=== PATIENT | male | born 1945 | race Caucasian/White ===

== ENCOUNTER 2018-08-17 09:03 | Outpatient (CLI) | payer BC ==
--- NOTE | 2018-08-18 01:17 | XRAY Report ---
Reason: CARDIAC MURMUR, UNSPECIFIED Procedure Date: 08/17/2018 Accession Number: [id number] / [id number] Procedure: XR - Chest 2 View X-Ray CPT Code: 67970 FULL RESULT: EXAM: CHEST RADIOGRAPHY EXAM DATE: 08/17/2018 10:00 AM. CLINICAL HISTORY: CARDIAC MURMUR, UNSPECIFIED. COMPARISON: RIBS 3 VIEW BILAT 02/22/2016 11:55 AM. TECHNIQUE: 2 views. FINDINGS: Lungs/Pleura: No evidence of acute consolidation or effusion. There are pleural calcifications. No evidence of effusion. No pneumothorax. Mediastinum: Heart size is within normal limits. Other: Remote left-sided rib fractures. IMPRESSION: 1. No acute intrathoracic plain film abnormality. 2. Normal heart size. Aortic contour is within normal limits. 3. There are pleural calcifications. RADIA
== END 2018-08-17 09:04 | disposition home or self-care (01) ==
LOC: DI 09:03
PROVIDERS: ATTEND Internal Medicine
DX: R01.1 Cardiac murmur, unspecified (principal); I35.0 Nonrheumatic aortic (valve) stenosis
CPT/HCPCS: 71046; 93306

== ENCOUNTER 2018-10-23 08:29 | Outpatient (CLI) | payer BC, MEDICARE ==
--- NOTE | 2018-10-23 10:35 | CARDIAC PROCEDURE NOTE ---
DATE OF SERVICE: 10/23/2018 Physician: Stacie Ryder MD, [facility] INDICATIONS: Chest pain. ORDERING PHYSICIAN: Vladimir Burt MD. CARDIAC RISK FACTORS: Male gender, advanced age, possibly untreated hypertension, hyperlipidemia which is untreated, family history of heart disease, and he is an ex-smoker. The patient has known aortic stenosis of a moderate degree. MEDICATIONS: None. PROCEDURE: After signing informed consent, the patient underwent a Cooper protocol treadmill stress test. No imaging was ordered with this test. Resting heart rate: 56. Peak heart rate: 114 (78% predicted maximal heart rate for age). Resting blood pressure: 171/80. Peak blood pressure: 158/68, and then in recovery increased to 170/70, then 200/70. The patient exercised for 5 minutes and 19 seconds on a Cooper protocol treadmill stress test. The patient developed his typical chest discomfort in early stage II, which he rated 2/10. The test was discontinued because of dropping blood pressure. At this point, the patient described chest pain at 4/10. In recovery, the blood pressure first increased to 200/70 peak, and then declined to 190/75 and 170/70. The patient's chest discomfort lasted for approximately 8 minutes. RESTING EKG: Sinus bradycardia, rare PVC, LVH voltage, flat T-wave in lead 3. EKG AT [facility]: [address]-segment depressions in leads V4 through V6, [address] depressions in leads 2, 3, aVF, and V3. After 5 minutes of recovery EKG showed: Sinus rhythm, inverted T waves in leads V4 through V6 and leads 2, 3 and aVF. I contacted Dr. Vladimir Burt and discussed the results. The patient was taken to the [facility] Emergency Room, and I handed over to the case to the emergency room doctor, Dr. Riley Castillo. SUMMARY 1. Abnormal resting EKG. 2. Poorly controlled blood pressure at rest. 3. Significant ischemic changes by EKG criteria on this exercise stress test. 4. Abnormal drop in blood pressure with exertion (suggesting Left Main or 3- vessel CAD). 5. No imaging study was ordered with this test. 6. The patient was taken to the emergency room, with plan for stabilization and transfer for urgent coronary angiogram. TD: 10/23/2018 10:15 Revised 10/27/2018 jll Account correction Orig. signed 10/23/2018@1118 MTDD
== END 2018-10-23 08:30 | disposition home or self-care (01) ==
LOC: DI 08:29
PROVIDERS: ATTEND Internal Medicine
DX: R94.31 Abnormal electrocardiogram [ECG] [EKG] (principal); R07.89 Other chest pain; E78.5 Hyperlipidemia, unspecified; Z82.49 Family history of ischemic heart disease and other diseases of the circulatory system; Z87.891 Personal history of nicotine dependence
CPT/HCPCS: 93017

== ENCOUNTER 2018-10-23 09:23 | Emergency (ER) | payer BC, MEDICARE ==
--- NOTE | 2018-10-23 09:31 | ED Physician Documentation ---
PD HPI CHEST PAIN - Stated complaint Stated Complaint: HIGH BP/CHEST DISCOMFORT - History obtained from History obtained from: Patient, Caregiver (Dr. Orozco, who just performed his outpt stress test.) - History of Present Illness Timing - onset: How many months ago (He said he has noticed some exertionally related chest pain and pressure intermittently for the last year or so but has been most notable in the last couple of months. He states it has increased to having chest discomfort with just a short walk but has not noticed it with just walking around the house or some stairs. He has noticed lightheadedness with activity along with the chest pressure. He has not had any syncope. He has not noticed any edema. He has previous history of high blood pressure but currently his blood pressures been more normal. He states his resting heart rate is 50- 60. He is not on any medications.) Timing - onset during: Light activity, Exertion Timing - duration: Minutes Timing - details: Abrupt onset, Now resolved Quality: Pressure, Tightness, Dull (Has only noticed the chest discomfort with exertion and then recently light activity. He feels fine at rest.) Location: Substernal, Left chest Radiation: No: Jaw, Neck, Back Improved by: Rest Worsened by: Exertion. No: Inspiration, Movement, Palpation, Position Associated symptoms: Shortness of air, Feeling faint / dizzy. No: Diaphoresis, Nausea, Vomiting, Palpitations Similar symptoms before: No diagnosis (He has had the symptoms progressively over the last year and then more so the last couple of months to the point of light activity causing discomfort and lightheadedness in the past couple of weeks. He was now getting a stress test evaluation of this.) Recently seen: Other (Just came from stress testing, which was markedly abnormal, with diffuse ST depression and notable drop in his blood pressure.) Review of Systems Constitutional: reports: Other (recent travel by plane couple weeks ago.). denies: Fever Ears: reports: Loss of hearing (chronic) Nose: denies: Rhinorrhea / runny nose, Congestion Throat: denies: Sore throat Cardiac: denies: Palpitations, Pedal edema, Calf pain Respiratory: denies: Cough GI: denies: Abdominal Pain, Nausea, Vomiting, Diarrhea, Bloody / black stool : denies: Dysuria, Frequency Skin: denies: Rash, Lesions Musculoskeletal: reports: Extremity pain (mild pains left calf the past week.). denies: Extremity swelling Neurologic: denies: Focal weakness, Numbness, Near syncope (but lightheaded at times with the chest pressure during light exertion) Endocrine: denies: Weight loss, Weight gain, Easy bruising / bleeding Immunocompromised: denies: Immunocompromised PD PAST MEDICAL HISTORY - Past Medical History Cardiovascular: Hypertension Respiratory: None Neuro: None Endocrine/Autoimmune: None - Past Surgical History Past Surgical History: Yes General: Appendectomy - Allergies Allergies/Adverse Reactions: Allergies Allergy/AdvReac Type Severity Reaction Status Date / Time No Known Drug Allergies Allergy Verified 07/21/15 15:55 - Living Situation Living Situation: reports: With spouse/s.o. Living Arrangement: reports: At home - Social History Does the pt smoke?: No Smoking Status: Never smoker Does the pt drink ETOH?: No Does the pt have substance abuse?: No - Family History Family history: reports: Non contributory PD ED PE NORMAL - Vitals Vital signs reviewed: Yes - General General: Alert and oriented X 3, No acute distress, Well developed/nourished - HEENT HEENT: Pharynx benign - Neck Neck: Supple, no meningeal sign, No adenopathy - Cardiac Cardiac: RRR, No murmur - Respiratory Respiratory: Clear bilaterally - Abdomen Abdomen: Normal bowel sounds, Soft, Non tender, Non distended - Back Back: No CVA TTP - Derm Derm: Normal color - Extremities Extremities: No deformity, No tenderness to palpate, Normal ROM s pain, No edema, Other (mild left mid calf tenderness without edema.) - Neuro Neuro: Alert and oriented X 3, No motor deficit, Normal speech - Psych Psych: Normal mood, Normal affect Results - Vitals Vitals: Vital Signs - 24 hr 10/23/18 10/23/18 10/23/18 09:31 09:41 10:05 Temperature 36 C L Heart Rate 60 55 L Respiratory 6 L 15 Rate Blood Pressure 176/87 H 168/77 H Blood Pressure 164/92 H [Right] O2 Saturation 100 100 10/23/18 10/23/18 10/23/18 10:32 11:00 11:30 Temperature Heart Rate 62 57 L 58 L Respiratory 15 15 15 Rate Blood Pressure 164/92 H 182/73 H 113/64 Blood Pressure [Right] O2 Saturation 100 100 96 10/23/18 12:00 Temperature 36.2 C L Heart Rate 59 L Respiratory 19 Rate Blood Pressure 121/75 Blood Pressure [Right] O2 Saturation 100 Oxygen O2 Source Room air - Labs Labs: Laboratory Tests 10/23/18 10/23/18 10/23/18 08:30 09:37 09:37 WBC 4.0 L RBC 4.58 L Hgb 14.9 Hct 42.9 MCV 93.6 MCH 32.5 H MCHC 34.7 RDW 13.1 Plt Count 140 MPV 8.5 Neut # (Auto) 2.5 Lymph # (Auto) 0.9 L [place] # (Auto) 0.4 Eos # (Auto) 0.0 Baso # (Auto) 0.0 Absolute Nucleated RBC 0.00 Nucleated RBC % 0.0 D-Dimer 200.2 Sodium 137 Potassium 4.2 Chloride 105 Carbon Dioxide 25 Anion Gap 7.0 BUN 18 Creatinine 0.9 Estimated GFR (MDRD) 82 L Glucose 107 H Calcium 9.1 Magnesium 2.3 Total Bilirubin 0.6 AST 26 ALT 22 Alkaline Phosphatase 93 Troponin I B-Natriuretic Peptide Total Protein 7.1 Albumin 4.1 Globulin 3.0 Albumin/Globulin Ratio 1.4 Lipase 32 10/23/18 10/23/18 09:37 09:37 WBC RBC Hgb Hct MCV MCH MCHC RDW Plt Count MPV Neut # (Auto) Lymph # (Auto) [place] # (Auto) Eos # (Auto) Baso # (Auto) Absolute Nucleated RBC Nucleated RBC % D-Dimer Sodium Potassium Chloride Carbon Dioxide Anion Gap BUN Creatinine Estimated GFR (MDRD) Glucose Calcium Magnesium Total Bilirubin AST ALT Alkaline Phosphatase Troponin I < 0.04 B-Natriuretic Peptide 79 Total Protein Albumin Globulin Albumin/Globulin Ratio Lipase PD MEDICAL DECISION MAKING - ED course Complexity details: reviewed results, considered differential (We will get baseline labs as well as chest x-ray. His EKG showing LVH with a hint of ST depressions laterally. The main issue is his markedly abnormal stress test with the drop in pressure and diffuse changes suggestive of main artery or multivessel disease. I think he requires urgent cardiology evaluation.), d/w patient, d/w sap ppm consultant ([facility] which was slightly closer did not have beds. I talked with [facility] and all of h er cardiology accepted the patient for transfer) Departure - Departure Disposition: 02 Transfer Acute Care Hosp Clinical Impression: Progressive angina, Abnormal stress ECG with treadmill Condition: Stable Record reviewed to determine appropriate education?: Yes
[2018-10-23 09:43] LABS: BASOPHILS % (AUTO) 1.2 %; EOSINOPHILS % (AUTO) 0.9 %; HGB - HEMOGLOBIN 14.9 g/dL (14.0-18.0); LYMPHOCYTES # (AUTO) 0.9 10^3/uL (1.5-3.5); LYMPHOCYTES % (AUTO) 22.6 %; MEAN CORPUSCULAR HEMOGLOBIN 32.5 pg (27.0-31.0); MEAN CORPUSCULAR HGB CONC 34.7 g/dL (32.0-36.0); MEAN CORPUSCULAR VOLUME 93.6 fL (80.0-94.0); MEAN PLATELET VOLUME 8.5 fL (7.4-11.4); MONOCYTES # (AUTO) 0.4 10^3/uL (0.0-1.0); MONOCYTES % (AUTO) 11.2 %; NEUTROPHILS # (AUTO) 2.5 10^3/uL (1.5-6.6); NEUTROPHILS % (AUTO) 64.1 %; PLT - PLATELET COUNT 140 10^3/uL (130-450); RED BLOOD COUNT 4.58 10^6/uL (4.70-6.10); RED CELL DISTRIBUTION WIDTH 13.1 % (12.0-15.0)
[2018-10-23] MEDS ORDERED: ASPIRIN CHEW 81 MG TABLET PO STA (09:47)
[2018-10-23] MEDS ORDERED: NITROGLYCERIN 2% PASTE TOP STA (09:48)
[2018-10-23] MEDS ORDERED: ATORVASTATIN 40 MG TABLET PO STA (09:57)
[2018-10-23 10:00] LABS: ALBUMIN 4.1 g/dL (3.2-5.5); ALBUMIN/GLOBULIN RATIO 1.4 (1.0-2.2); BILIRUBIN,TOTAL 0.6 mg/dL (0.2-1.0); CALCIUM 9.1 mg/dL (8.5-10.3); CREATININE 0.9 mg/dL (0.6-1.2); MAGNESIUM 2.3 mg/dL (1.7-2.8); TOTAL PROTEIN 7.1 g/dL (6.7-8.2)
--- NOTE | 2018-10-23 10:17 | XRAY Report ---
Reason: chest pain Procedure Date: 10/23/2018 Accession Number: [id number] / [id number] Procedure: XR - Chest 1 View X-Ray CPT Code: 79889 FULL RESULT: EXAM: CHEST RADIOGRAPHY EXAM DATE: 10/23/2018 09:53 AM. CLINICAL HISTORY: Chest pain. COMPARISON: CHEST 2 VIEW 08/17/2018 9:57 AM. TECHNIQUE: 1 view. FINDINGS: Lungs/Pleura: Apparent 1.8 x 1.7 cm mass projecting over the right mid lung, new finding compared to 08/17/2018. No lobar consolidation pneumothorax or pleural effusion is identified. Mediastinum: Within exam limitations, the cardiomediastinal contour is normal. Other: None. IMPRESSION: Apparent 1.8 cm mass projecting over the right lung represents a new finding. While this finding is less likely to account for the patient's acute presentation, clarification by routine outpatient chest CT is warranted. RADIA
[2018-10-23 12:17] VITALS: BP 121/75
== END 2018-10-23 12:56 | disposition short-term general hospital (02) ==
LOC: ED 09:23
DX: I20.0 Unstable angina (principal); R94.31 Abnormal electrocardiogram [ECG] [EKG]; I10 Essential (primary) hypertension; E78.5 Hyperlipidemia, unspecified; Z82.49 Family history of ischemic heart disease and other diseases of the circulatory system; Z87.891 Personal history of nicotine dependence
CPT/HCPCS: 36415; 71045; 80053; 83690; 83735; 83880; 84484; 85025; 85379; 93005; 93017; 99284

== ENCOUNTER 2018-10-23 12:59 | Outpatient (CLI) | payer MEDICARE | END 2018-10-23 13:00 | disposition home or self-care (01) | LOC: EMS 12:59 | PROVIDERS: ATTEND Surgery | DX: R07.9 Chest pain, unspecified (principal) | CPT/HCPCS: A0425; A0427 ==

== ENCOUNTER 2018-12-02 21:01 | Outpatient (CLI) | payer MEDICARE ==
--- NOTE | 2018-12-03 20:29 | Ultrasound Report ---
Reason: IRRITATED LIPOMA Procedure Date: 12/02/2018 Accession Number: [id number] / [id number] Procedure: US - Head or Neck Soft Tissue CPT Code: FULL RESULT: EXAM: NECK ULTRASOUND EXAM DATE: 12/02/2018 09:16 PM. CLINICAL HISTORY: IRRITATED LIPOMA. COMPARISON: None. TECHNIQUE: Real-time sonographic imaging was performed by the pipe insulator helper utilizing color-flow. Multiple surgical device sales representative static images were saved for review. FINDINGS: Scanning of the region of concern in the left lateral neck demonstrates a mildly hyperechoic 2.9 x 2.4 x 0.7 cm circumscribed nodule, without vascularity. No fluid collection is identified. No adjacent adenopathy is appreciated. IMPRESSION: Likely lipoma in the left lateral neck. RADIA
== END 2018-12-02 21:02 | disposition home or self-care (01) ==
LOC: DI 21:01
PROVIDERS: ATTEND Physician Assistant
DX: D17.9 Benign lipomatous neoplasm, unspecified (principal)
CPT/HCPCS: 76536

== ENCOUNTER 2018-12-19 16:47 | Outpatient (CLI) | payer MEDICARE ==
--- NOTE | 2018-12-21 19:11 | Ultrasound Report ---
Reason: UNSP SYMPTOMS AND SIGNS INVOLVING THE GENITOURINAR Procedure Date: 12/19/2018 Accession Number: [id number] / [id number] Procedure: US - Bladder CPT Code: FULL RESULT: EXAM: PELVIS ULTRASOUND, LIMITED. EXAM DATE: 12/19/2018 05:20 PM. CLINICAL HISTORY: Dysuria. COMPARISON: None. TECHNIQUE: Real-time scanning was performed with static images obtained. FINDINGS: Ultrasound evaluation shows bilateral ureteral jets. No bladder wall thickening. Bladder volume is 239 cc prevoid, 15 cc postvoid. Prostate measures 4.2 x 4.3 x 4.8 cm. IMPRESSION: Postvoid residual of 15 cc. RADIA
== END 2018-12-19 16:48 | disposition home or self-care (01) ==
LOC: DI 16:47
PROVIDERS: ATTEND Internal Medicine
DX: R39.9 Unspecified symptoms and signs involving the genitourinary system (principal)
CPT/HCPCS: 76857

== ENCOUNTER 2018-12-19 16:48 | Outpatient (CLI) | payer MEDICARE ==
[2018-12-19] MEDS ORDERED: IOPAMIDOL-300 100 ML VIAL IVP ONE ×2 (16:49→17:49)
[2018-12-19 17:18] LABS: CREATININE 0.9 mg/dL (0.6-1.2)
[2018-12-19] MEDS ORDERED: IOPAMIDOL-300 100 ML VIAL ONE (17:26)
--- NOTE | 2018-12-21 11:04 | CT Report ---
Reason: UNSPECIFIED INFECTIOUS DISEASE Procedure Date: 12/19/2018 Accession Number: [id number] / [id number] Procedure: CT - SOFT TISSUE NECK W CPT Code: FULL RESULT: CT SOFT TISSUE NECK WITH CONTRAST INDICATION: 73-year-old male. Clinical history as per requisition is "unspecified infectious disease". Clinical history provided by the mri technologist states "the left side of face and neck feels inflamed". TECHNIQUE: The neck was scanned helically and data was reconstructed into 2 mm axial images. In addition, sagittal and coronal reformations have been generated. CONTRAST: Isovue 300, 80 mL IV. In accordance with CT protocol optimization, one or more of the following dose reduction techniques were utilized for this exam: automated exposure control, adjustment of mA and/or KV based on patient size, or use of iterative reconstructive technique. COMPARISON: None. FINDINGS: The nasopharyngeal and oropharyngeal soft tissues appear symmetric. The oral tongue is obscured due to extensive beam hardening artifact from metal dental hardware. No tongue base mass is identified. The larynx and hypopharynx are unremarkable. The trachea is widely patent to the ismael. There is an ovoid, hypodense mass in the mid to lower pole of the left lobe of the thyroid gland that measures about 13 mm maximal AP by 10 mm maximal transverse and 14 mm maximal craniocaudad. No obvious extracapsular disease. No regional lymphadenopathy. A few coarse calcifications are seen in the mid and upper pole of the left lobe of the thyroid. The right lobe and isthmus are unremarkable. The submandibular and parotid glands are unremarkable. There is calcified atherosclerotic plaque at the carotid bifurcations. Evaluation is limited on the images provided, however, no definite, hemodynamically significant carotid artery stenosis is identified. Both vertebral arteries are patent. The internal jugular veins appear patent. Multiple normal sized, homogeneous, nonnecrotic lymph nodes are identified in the neck. No lymph nodes meeting the size criterion for malignancy are demonstrated and no necrotic lymph nodes are identified. There is a poorly defined focus of increased density in subcutaneous fat, posterolateral aspect left neck at about the level of the C2-C3 disk (see image 80 of series #3 and image 37 of series #6). This ill-defined area of increased density within the subcutaneous fat extends over a distance of roughly 10 mm AP by 6.5 mm transverse and 4 mm craniocaudad. This could represent a small focus of scarring from prior surgery or previous trauma. Localized inflammation in the subcutaneous fat could also give this appearance. No discrete mass is identified. No well-circumscribed, loculated fluid collection is seen to suggest the possibility of abscess. The regional soft tissues are otherwise unremarkable. A tiny calcified granuloma is identified posteriorly and to the right pulmonary apex, consistent with the sequela of remote granulomatous infection. No focal mass/nodule is seen in the imaged upper lungs. Postsurgical changes are noted in the chest with evidence of previous midline sternotomy. Degenerative changes are demonstrated in the cervical spine. The regional bony structures are otherwise unremarkable. No lytic or destructive bone lesion is demonstrated. Middle ear cavities and imaged mastoid air cells appear clear. There is mild mucosal thickening in the left maxillary sinus. No air-fluid level is demonstrated. The imaged paranasal sinuses are otherwise essentially clear. Of note, the roots for the right maxillary third molars protrude upward into the alveolar recesses of the maxillary sinuses bilaterally. Also noted is periapical lucency surrounding a root of the left maxillary first molar (see image 49 of series #3 and image 53 of series #6) consistent with periapical abscess, age indeterminate. IMPRESSION: 1. There is a 1.3 x 1 x 1.4 cm, predominantly hypodense mass lower pole, left lobe of the thyroid. The possibility of malignancy cannot be excluded. Recommend further assessment with thyroid ultrasound. 2. Small, minor focus of increased density, subcutaneous fat, posterolateral aspect, left neck at the C2-C3 disk level as described. This could represent scarring from prior surgery or trauma. Localized infection/inflammation in the subcutaneous fat could also give this appearance. Clinical correlation advised. 3. Periapical lucency surrounding a root for the left maxillary first molar is consistent with periapical abscess, age indeterminate. 4. Otherwise unremarkable examination of the neck. In particular, no worrisome lymphadenopathy is identified.
== END 2018-12-19 16:49 | disposition home or self-care (01) ==
LOC: DI 16:48
PROVIDERS: ATTEND Specialist
DX: E04.9 Nontoxic goiter, unspecified (principal); R93.89 Abnormal findings on diagnostic imaging of other specified body structures; R39.9 Unspecified symptoms and signs involving the genitourinary system
CPT/HCPCS: 36415; 70491; 76857; 82565; Q9967

== ENCOUNTER 2019-10-14 11:50 | Emergency (ER) | payer MEDICARE ==
--- NOTE | 2019-10-14 14:19 | ED Physician Documentation ---
PD HPI HEAD INJURY - Stated complaint Stated Complaint: HEAD LAC - Chief complaint Chief Complaint: Trauma Hd/Nk - History obtained from History obtained from: Patient - History of Present Illness Mechanism of head injury: Fell (slipped on snowy steps and fell backward, striking back of head on concrete. Laceration to occiput without LOC, nor confusion, nor vomiting. Denies diffuse headache.) Timing - onset: Today Location of injury: Right, Back Quality of pain: Aching, Dull Associated symptoms: No: LOC, AMS, Nausea / vomiting, Neck pain, Paresthesias Symptoms worsen with: Palpation Contributing factors: No: Anticoagulated, Intoxicated Similar symptoms before: Has not had sx before Recently seen: Not recently seen Review of Systems Constitutional: denies: Fever Nose: denies: Rhinorrhea / runny nose, Congestion Throat: denies: Sore throat Cardiac: denies: Chest pain / pressure Respiratory: denies: Dyspnea, Cough GI: denies: Abdominal Pain, Nausea, Vomiting Skin: reports: Laceration (s) Neurologic: denies: Syncope, Altered mental status, LOC Endocrine: denies: Easy bruising / bleeding PD PAST MEDICAL HISTORY - Past Medical History Cardiovascular: Hypertension, High cholesterol Respiratory: None Neuro: None Endocrine/Autoimmune: None GI: None : Benign prostate hypertrophy HEENT: Chronic hearing loss Psych: None Musculoskeletal: Osteoarthritis - Past Surgical History Past Surgical History: Yes General: Appendectomy Ortho: Other Cardiovascular: Valve replacement HEENT: Cataracts - Present Medications Home Medications: Ambulatory Orders Medication Instructions Recorded Confirmed Blood Pressure Pill 0 mg DAILY 10/14/19 Statin 0 mg DAILY 10/14/19 Tamsulosin HCl [Flomax] 0.4 mg DAILY 10/14/19 10/14/19 - Allergies Allergies/Adverse Reactions: Allergies Allergy/AdvReac Type Severity Reaction Status Date / Time No Known Drug Allergies Allergy Verified 10/14/19 12:10 - Social History Does the pt smoke?: No Smoking Status: Never smoker Does the pt drink ETOH?: No Does the pt have substance abuse?: No - Immunizations Immunizations are current?: No PD ED PE NORMAL - Vitals Vital signs reviewed: Yes - General General: Alert and oriented X 3, No acute distress, Well developed/nourished - HEENT HEENT: PERRL, EOMI, Other (right occiput with 2 cm laceration irregular edged, full thickness scalp, without FB but does have some ongoing bleeding. ) - Neck Neck: Supple, no meningeal sign, No bony TTP (some tender in muscles laterally to lower neck. ), No adenopathy - Cardiac Cardiac: RRR, No murmur - Respiratory Respiratory: Clear bilaterally - Abdomen Abdomen: Soft, Non tender - Back Back: No spinal TTP - Derm Derm: Normal color, Warm and dry - Extremities Extremities: No tenderness to palpate, Normal ROM s pain - Neuro Neuro: Alert and oriented X 3, geometry professor 2-12 intact, No motor deficit, No sensory deficit, Normal speech, Other Eye Opening: Spontaneous Motor: Obeys Commands Verbal: Oriented GCS Score: 15 - Psych Psych: Normal mood Results - Vitals Vitals: Vital Signs - 24 hr 10/14/19 10/14/19 12:03 14:50 Temperature 36.2 C L 36.6 C Heart Rate 59 L 58 L Respiratory 16 18 Rate Blood Pressure 182/82 H 153/78 H O2 Saturation 99 96 Oxygen O2 Source Room air Procedures - Laceration (location) occipital scalp Length in cm: 3.2 Wound type: Curved Neurovascular status: Sensory intact Anesthesia: Lidocaine 1% with epi Wound Preparation: Irrigated copiously NS, Wound explored, To the base. No: FB identified, Wound edges modified Skin layer closure: Nylon, Running, Size #-0 - enter number (4), Sutures - enter # (8) PD MEDICAL DECISION MAKING - ED course Complexity details: re-evaluated patient, considered differential (accidental fall and struck back of head without concussive symptoms. Some lower neck muscular tenderness. Discussion with patient and he prefers no imaging. Low suspicion for neck fracture but falls out of c-spine guidelines due to age only. ), d/w patient Departure - Departure Disposition: 01 Home, Self Care Clinical Impression: Fall from slip, trip, or stumble Qualifiers: Encounter type: initial encounter Qualified Code(s): W01.0XXA - Fall on same level from slipping, tripping and stumbling without subsequent striking against object, initial encounter Scalp laceration Qualifiers: Encounter type: initial encounter Qualified Code(s): S01.01XA - Laceration without foreign body of scalp, initial encounter Condition: Stable Record reviewed to determine appropriate education?: Yes Instructions: ED Laceration Scalp Stitch Or Stap Follow-Up: Vladimir Burt MD [Primary Care Provider] - Comments: Tylenol or ibuprofen if needed for pains. It is okay to wash and shower. Clean off the wound twice a day with soap and water, or peroxide and water. Apply some antibiotic ointment to it to keep it moist. Also to watch for signs of infection such as purulence, redness or increasing pain. Return to your primary care or the ER at the specified time for suture removal. Suture removal 8 to 10 days. Discharge Date/Time: 10/14/19 15:39
[2019-10-14] MEDS ORDERED: LIDOCAINE MPF 1%-EPI 1:200000 10 ML VIAL SUBQ STA (14:25)
[2019-10-14 14:51] VITALS: BP 153/78
[2019-10-14] MEDS ORDERED: BACITRACIN ZINC OINT 1 PACKET TOP ONE (15:18)
== END 2019-10-14 15:39 | disposition home or self-care (01) ==
LOC: ED 11:50
DX: S01.01XA Laceration without foreign body of scalp, initial encounter (principal); M54.2 Cervicalgia; W00.1XXA Fall from stairs and steps due to ice and snow, initial encounter; I10 Essential (primary) hypertension
CPT/HCPCS: 12002; 99283; 99284; A9270; J3490

== ENCOUNTER 2021-03-13 08:00 | Outpatient (CLI) | payer MEDICARE, OTHER | END 2021-03-13 23:59 | disposition home or self-care (01) | LOC: LAB 08:00 | PROVIDERS: ATTEND Specialist | DX: C61 Malignant neoplasm of prostate (principal); R39.9 Unspecified symptoms and signs involving the genitourinary system; R97.20 Elevated prostate specific antigen [PSA]; N40.3 Nodular prostate with lower urinary tract symptoms | CPT/HCPCS: 36415; 84153 ==

== ENCOUNTER 2021-03-23 13:04 | Outpatient (CLI) | payer MEDICARE, OTHER ==
[2021-03-23 13:59] LABS: CALCIUM 9.7 mg/dL (8.5-10.3); CREATININE 1.1 mg/dL (0.6-1.2); POTASSIUM 4.1 mmol/L (3.5-5.0)
== END 2021-03-23 13:05 | disposition home or self-care (01) ==
LOC: LAB 13:04
PROVIDERS: ATTEND Specialist
DX: N40.3 Nodular prostate with lower urinary tract symptoms (principal)
CPT/HCPCS: 36415; 80048

== ENCOUNTER 2021-07-10 08:00 | Outpatient (CLI) | payer MEDICARE, OTHER | END 2021-07-10 23:59 | disposition home or self-care (01) | LOC: LAB.WCP 08:00 | PROVIDERS: ATTEND Specialist | DX: C61 Malignant neoplasm of prostate (principal); R97.20 Elevated prostate specific antigen [PSA]; C79.51 Secondary malignant neoplasm of bone; Z90.79 Acquired absence of other genital organ(s) | CPT/HCPCS: 36415; 84153; 84403 ==

== ENCOUNTER 2021-10-11 08:59 | Outpatient (CLI) | payer MEDICARE, OTHER | END 2021-10-11 09:00 | disposition home or self-care (01) | LOC: LAB 08:59 | PROVIDERS: ATTEND Specialist | DX: C61 Malignant neoplasm of prostate (principal); C79.51 Secondary malignant neoplasm of bone | CPT/HCPCS: 36415; 84153 ==

== ENCOUNTER 2022-04-27 18:19 | Emergency (ER) | payer MEDICARE, OTHER ==
--- OUTSIDE RECORDS SUMMARY | 2022-04-27 18:36 | EXTERNAL MEDICAL SUMMARY RPT | Continuity of Care Document ---
:1945 Author Organization [facility] Address [address] [place] [address] Phone Allergies and Intolerances date description facility type (no date) [facility] (unknown) Encounters No information. Functional Status No information. Immunizations No information. Medications No information. Problems No information. Procedures date description facility +0000 Diagnosis [facility] [id number] Finding [facility] +0000 General Physician [facility] Results/Labs test date author facility value unit interpret ation Result panel 1 (unknown) (no (unknown) (unknown) (no value) (units (unk nown) date) unknown) (unknown) (no (unknown) (unknown) [place], [place] (units ( unknown) date) [id number] unknown) (unknown) (no (unknown) (unknown) Congested (units (unkn own) date) unknown) (unknown) (no (unknown) (unknown) Diabetes (units (unkno wn) date) mellitus unknown) (unknown) (no (unknown) (unknown) Draft (units (unkno wn) date) unknown) (unknown) (no (unknown) (unknown) GI Upset, (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 (unknown) (no (unknown) (unknown) ITCHING (units (unkno wn) date) unknown) (unknown) (no (unknown) (unknown) [facility] (units (unknown) date) unknown) (unknown) (no (unknown) (unknown) UTI (urinary (units (u nknown) date) tract infection) unknown) (unknown) (no (unknown) (unknown) Urology Office (units (unknown) date) Visit unknown) (unknown) (no (unknown) (unknown) (no value) (units (unk nown) date) unknown) (unknown) (no (unknown) (unknown) 03/13/22 (units (unkno wn) date) unknown) (unknown) (no (unknown) (unknown) 03/13/22] (units (unkn own) date) unknown) (unknown) (no (unknown) (unknown) 76 Y/O M (units (unkno wn) date) presents to unknown) clinic for 3 month follow prostate specific antigen/post (unknown) (no (unknown) (unknown) Age/Sex: 76 / M (units (unknown) date) Date of unknown) Service: (unknown) (no (unknown) (unknown) Allergies (units (unkn own) date) unknown) (unknown) (no (unknown) (unknown) Aortic valve (units (u nknown) date) replaced unknown) (09/2018) (unknown) (no (unknown) (unknown) Attending Dr: (units ( unknown) date) Bud John unknown) (unknown) (no (unknown) (unknown) Bilateral (units (unkn own) date) hydrocele unknown) (unknown) (no (unknown) (unknown) Brother (units (unkno wn) date) Thyroid disease unknown) (unknown) (no (unknown) (unknown) Coronary artery (units (unknown) date) disease unknown) (unknown) (no (unknown) (unknown) : 1945 (units (unknown) date) Acct:[id number] unknown) (unknown) (no (unknown) (unknown) Dept at (units (unkno wn) date) . unknown) (unknown) (no (unknown) (unknown) Documented By: (units (unknown) date) Bud John unknownKaykay SAEZ 03/13/22 0910 (unknown) (no (unknown) (unknown) Elevated PSA (units (u nknown) date) unknown) (unknown) (no (unknown) (unknown) Family History (units (unknown) date) (Reviewed unknown) 07/20/21 @ 09:29 by Bud John MD) (unknown) (no (unknown) (unknown) Father CAD (units (u nknown) date) (coronary artery unknown) disease) (unknown) (no (unknown) (unknown) Fragile skin (units (u nknown) date) unknown) (unknown) (no (unknown) (unknown) HLD (units (unkno wn) date) (hyperlipidemia) unknown) (unknown) (no (unknown) (unknown) HTN (units (unkno wn) date) (hypertension) unknown) (unknown) (no (unknown) (unknown) Hearing impaired (units (unknown) date) unknown) (unknown) (no (unknown) (unknown) History of (units (unk nown) date) appendectomy unknown) (unknown) (no (unknown) (unknown) History of (units (unk nown) date) cardiac cath unknown) (02/03/21) (unknown) (no (unknown) (unknown) History of (units (unk nown) date) surgery unknown) (unknown) (no (unknown) (unknown) Hx of bilateral (units (unknown) date) cataract unknown) extraction (unknown) (no (unknown) (unknown) Intake (units (unkno wn) date) unknown) (unknown) (no (unknown) (unknown) Intake Note: (units (u nknown) date) unknown) (unknown) (no (unknown) (unknown) Intake performed (units (unknown) date) by: unknown) Rosalba Mercer (unknown) (no (unknown) (unknown) Intake- Clincial (units (unknown) date) Staff unknown) (unknown) (no (unknown) (unknown) Loc: [facility] (units (unkno wn) date) unknown) (unknown) (no (unknown) (unknown) Lower urinary (units ( unknown) date) tract symptoms unknown) (LUTS) (unknown) (no (unknown) (unknown) [id number] (units (unk nown) date) unknown) (unknown) (no (unknown) (unknown) Medical History (units (unknown) date) (Updated 12/07/21 unknown) @ 12:49 by Bud John MD) (unknown) (no (unknown) (unknown) Medications (units (un known) date) unknown) (unknown) (no (unknown) (unknown) Migraines (units (unkn own) date) unknown) (unknown) (no (unknown) (unknown) Mother No (units (unknown) date) problems noted. 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 (unknown) (no (unknown) (unknown) Reason For Visit (units (unknown) date) unknown) (unknown) (no (unknown) (unknown) S/P CABG x 1 (units (u nknown) date) (09/2018) unknown) (unknown) (no (unknown) (unknown) SHREYAS (stress (units (un known) date) urinary unknown) incontinence), male (unknown) (no (unknown) (unknown) Signed By: (units (unk nown) date) unknown) (unknown) (no (unknown) (unknown) Sister Cancer (units (unknown) date) unknown) (unknown) (no (unknown) (unknown) Smoking Status: (units (unknown) date) Former smoker unknown) (unknown) (no (unknown) (unknown) Smoking Status: (units (unknown) date) Former smoker unknown) (unknown) (no (unknown) (unknown) Social History (units (unknown) date) (Reviewed unknown) 07/20/21 @ 09:29 by Bud John MD) (unknown) (no (unknown) (unknown) Sugars, (units (unkno wn) date) Metabolically unknown) Active Adverse Reaction (Mild, Verified 03/13/22 09:11) (unknown) (no (unknown) (unknown) Surgical History (units (unknown) date) (Reviewed unknown) 07/20/21 @ 09:29 by Bud John MD) (unknown) (no (unknown) (unknown) This note may (units ( unknown) date) have been all or unknown) partially generated using voice recognition (unknown) (no (unknown) (unknown) Tobacco Status (units (unknown) date) unknown) (unknown) (no (unknown) (unknown) Valvular heart (units (unknown) date) disease unknown) (unknown) (no (unknown) (unknown) Visit Reasons: 3 (units (unknown) date) mo f/u PSA / PVR unknown) (unknown) (no (unknown) (unknown) abiraterone 500 (units (unknown) date) mg tablet 1,000 unknown) mg PO DAILY #90 tabs 12/13/21 [Rx Confirmed (unknown) (no (unknown) (unknown) alcohol intake: (units (unknown) date) never unknown) (unknown) (no (unknown) (unknown) caffeine: Yes (units (unknown) date) unknown) (unknown) (no (unknown) (unknown) gluten Adverse (units (unknown) date) Reaction (Severe, unknown) Verified 03/13/22 09:11) (unknown) (no (unknown) (unknown) have occurred. (units (unknown) date) If there are any unknown) questions, please contact the Medical Records (unknown) (no (unknown) (unknown) household (units (unkn own) date) members: spouse unknown) (unknown) (no (unknown) (unknown) lactase [From (units ( unknown) date) Dairy Aid] unknown) Adverse Reaction (Mild, Verified 03/13/22 09:11) (unknown) (no (unknown) (unknown) marital status: (units (unknown) date) unknown) (unknown) (no (unknown) (unknown) may occur. (units (unk nown) date) Occasional unknown) wrong-word or 'sound-alike' substitutions may have (unknown) (no (unknown) (unknown) number of (units (unkn own) date) children: 3 unknown) (unknown) (no (unknown) (unknown) occurred due to (units (unknown) date) the inherent unknown) limitations of voice recognition software. Please (unknown) (no (unknown) (unknown) prednisone 5 mg (units (unknown) date) tablet 5 mg PO unknown) BID #180 tabs 12/07/21 [Rx Confirmed 03/13/22] (unknown) (no (unknown) (unknown) read the note (units ( unknown) date) carefully and unknown) recognize, using context, where these substitutions (unknown) (no (unknown) (unknown) software. (units (unkn own) date) Although every unknown) effort is made to edit content, crop roller errors (unknown) (no (unknown) (unknown) void residual (units ( unknown) date) unknown) Result panel 2 (unknown) (no (unknown) (unknown) (no value) (units (unk nown) date) unknown) (unknown) (no (unknown) (unknown) Orders: (units (unkno wn) date) unknown) (unknown) (no (unknown) (unknown) (no value) (units (unk nown) date) unknown) (unknown) (no (unknown) (unknown) 03/13/22 (units (unkno wn) date) unknown) (unknown) (no (unknown) (unknown) 09:24 (units (unkno wn) date) unknown) (unknown) (no (unknown) (unknown) [place], [place] (units ( unknown) date) [id number] unknown) (unknown) (no (unknown) (unknown) Congested (units (unkn own) date) unknown) (unknown) (no (unknown) (unknown) Diabetes (units (unkno wn) date) mellitus unknown) (unknown) (no (unknown) (unknown) Draft (units (unkno wn) date) unknown) (unknown) (no (unknown) (unknown) GI Upset, (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 (unknown) (no (unknown) (unknown) ITCHING (units (unkno wn) date) unknown) (unknown) (no (unknown) (unknown) [facility] (units (unknown) date) unknown) (unknown) (no (unknown) (unknown) UTI (urinary (units (u nknown) date) tract infection) unknown) (unknown) (no (unknown) (unknown) Urology Office (units (unknown) date) Visit unknown) (unknown) (no (unknown) (unknown) (no value) (units (unk nown) date) unknown) (unknown) (no (unknown) (unknown) Urine Appearance (units (unknown) date) Clear Last unknown) Edit by Rosalba Mercer RN on 03/13/22 09:27 (unknown) (no (unknown) (unknown) Urine Bilirubin (units (unknown) date) Negative Last unknown) Edit by Rosalba Mercer RN on 03/13/22 09:27 (unknown) (no (unknown) (unknown) Urine Blood (units (un known) date) Negative Last unknown) Edit by Rosalba Mercer RN on 03/13/22 09:27 (unknown) (no (unknown) (unknown) Urine Color (units (un known) date) Amanda Last unknown) Edit by Rosalba Mercer RN on 03/13/22 09:27 (unknown) (no (unknown) (unknown) Urine Glucose (units ( unknown) date) Negative mg/dL unknown) Last Edit by Rosalba Mercer RN on 03/13/22 09 (unknown) (no (unknown) (unknown) Urine Ketones (units ( unknown) date) Negative Last unknown) Edit by Rosalba Mercer RN on 03/13/22 09:27 (unknown) (no (unknown) (unknown) Urine Leukocyte (units (unknown) date) Esterase Negative unknown) Last Edit by Rosalba Mercer RN on 03/13 (unknown) (no (unknown) (unknown) Urine Nitrate (units ( unknown) date) Negative Last unknown) Edit by Rosalba Mercer RN on 03/13/22 09:27 (unknown) (no (unknown) (unknown) Urine Protein (units ( unknown) date) Negative Last unknown) Edit by Rosalba Mercer RN on 03/13/22 09:27 (unknown) (no (unknown) (unknown) Urine Specific (units (unknown) date) Bryant 1.025 unknown) Last Edit by Rosalba Mercer RN on 03/13/22 (unknown) (no (unknown) (unknown) Urine (units (unkno wn) date) Urobilinogen - unknown) 0.2 mg/dL Last Edit by Rosalba Mercer RN on 03/13/ (unknown) (no (unknown) (unknown) Urine pH 5.5 (units (unknown) date) Last Edit by unknown) Rosalba Mercer RN on 03/13/22 09:27 (unknown) (no (unknown) (unknown) (units (unkno wn) date) unknown) (unknown) (no (unknown) (unknown) 03/13/22 (units (unkno wn) date) unknown) (unknown) (no (unknown) (unknown) 03/13/22] (units (unkn own) date) unknown) (unknown) (no (unknown) (unknown) 09:27 (units (unkno wn) date) unknown) (unknown) (no (unknown) (unknown) 22 (units (unkno wn) date) unknown) (unknown) (no (unknown) (unknown) 76 Y/O M (units (unkno wn) date) presents to unknown) clinic for 3 month follow prostate specific antigen/post (unknown) (no (unknown) (unknown) :27 (units (unkno wn) date) unknown) (unknown) (no (unknown) (unknown) Age/Sex: 76 / M (units (unknown) date) Date of unknown) Service: (unknown) (no (unknown) (unknown) Allergies (units (unkn own) date) unknown) (unknown) (no (unknown) (unknown) Aortic valve (units (u nknown) date) replaced unknown) (09/2018) (unknown) (no (unknown) (unknown) Assessment + (units (u nknown) date) Plan unknown) (unknown) (no (unknown) (unknown) Attending Dr: (units ( unknown) date) Bud John unknown) (unknown) (no (unknown) (unknown) BP 151/72 H (units (unknown) date) unknown) (unknown) (no (unknown) (unknown) Bilateral (units (unkn own) date) hydrocele unknown) (unknown) (no (unknown) (unknown) Billing- Post (units ( unknown) date) Void Residual: unknown) Post Void Residual- [id number] (unknown) (no (unknown) (unknown) Bladder volume: (units (unknown) date) PVR=22ML unknown) (unknown) (no (unknown) (unknown) Blood Pressure (units (unknown) date) Location Lt unknown) brachial (unknown) (no (unknown) (unknown) Brother (units (unkno wn) date) Thyroid disease unknown) (unknown) (no (unknown) (unknown) Complications: (units (unknown) date) No unknown) (unknown) (no (unknown) (unknown) Consent signed: (units (unknown) date) No unknown) (unknown) (no (unknown) (unknown) Coronary artery (units (unknown) date) disease unknown) (unknown) (no (unknown) (unknown) : 1945 (units (unknown) date) Acct:[id number] unknown) (unknown) (no (unknown) (unknown) Dept at (units (unkno wn) date) . unknown) (unknown) (no (unknown) (unknown) Documented By: (units (unknown) date) Bud John unknown) 03/13/22 0910 (unknown) (no (unknown) (unknown) Elevated PSA (units (u nknown) date) unknown) (unknown) (no (unknown) (unknown) Family History (units (unknown) date) (Reviewed unknown) 07/20/21 @ 09:29 by Bud John MD) (unknown) (no (unknown) (unknown) Father CAD (units (u nknown) date) (coronary artery unknown) disease) (unknown) (no (unknown) (unknown) Fragile skin (units (u nknown) date) unknown) (unknown) (no (unknown) (unknown) HLD (units (unkno wn) date) (hyperlipidemia) unknown) (unknown) (no (unknown) (unknown) HTN (units (unkno wn) date) (hypertension) unknown) (unknown) (no (unknown) (unknown) Hearing impaired (units (unknown) date) unknown) (unknown) (no (unknown) (unknown) History of (units (unk nown) date) appendectomy unknown) (unknown) (no (unknown) (unknown) History of (units (unk nown) date) cardiac cath unknown) (02/03/21) (unknown) (no (unknown) (unknown) History of (units (unk nown) date) surgery unknown) (unknown) (no (unknown) (unknown) Hx of bilateral (units (unknown) date) cataract unknown) extraction (unknown) (no (unknown) (unknown) Informed consent (units (unknown) date) given: No unknown) (unknown) (no (unknown) (unknown) Intake (units (unkno wn) date) unknown) (unknown) (no (unknown) (unknown) Intake Note: (units (u nknown) date) unknown) (unknown) (no (unknown) (unknown) Intake performed (units (unknown) date) by: unknown) Rosalba Mercer (unknown) (no (unknown) (unknown) Intake- Clincial (units (unknown) date) Staff unknown) (unknown) (no (unknown) (unknown) Loc: [facility] (units (unkno wn) date) unknown) (unknown) (no (unknown) (unknown) Lower urinary (units ( unknown) date) tract symptoms unknown) (LUTS) (unknown) (no (unknown) (unknown) [id number] (units (unk nown) date) unknown) (unknown) (no (unknown) (unknown) Medical History (units (unknown) date) (Updated 12/07/21 unknown) @ 12:49 by Bud John MD) (unknown) (no (unknown) (unknown) Medications (units (un known) date) unknown) (unknown) (no (unknown) (unknown) Migraines (units (unkn own) date) unknown) (unknown) (no (unknown) (unknown) Mother No (units (unknown) date) problems noted. 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 (unknown) (no (unknown) (unknown) Office (units (unkno wn) date) Procedures unknown) (unknown) (no (unknown) (unknown) Orders (units (unkno wn) date) unknown) (unknown) (no (unknown) (unknown) Oxygen Delivery (units (unknown) date) Method room unknown) air (unknown) (no (unknown) (unknown) PFSH (units (unkno wn) date) unknown) (unknown) (no (unknown) (unknown) POC Urine Dip (units ( unknown) date) Today R30.0 - unknown) Dysuria (unknown) (no (unknown) (unknown) Patient: (units (unkno wn) date) OscarSathish unknown) P MR#: (unknown) (no (unknown) (unknown) Photos taken: No (units (unknown) date) unknown) (unknown) (no (unknown) (unknown) Position (units (unkno wn) date) Sitting unknown) (unknown) (no (unknown) (unknown) Procedure (units (unkn own) date) performed by: unknown) Rosalba Mercer (unknown) (no (unknown) (unknown) Prostate cancer (units (unknown) date) unknown) (unknown) (no (unknown) (unknown) 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 (unknown) (no (unknown) (unknown) Pulse 64 (units (un known) date) unknown) (unknown) (no (unknown) (unknown) Pulse Oximetry (units (unknown) date) (%) 98 unknown) (unknown) (no (unknown) (unknown) Pulse Source (units (u nknown) date) Monitor unknown) (unknown) (no (unknown) (unknown) Reason For Visit (units (unknown) date) unknown) (unknown) (no (unknown) (unknown) Residual: post (units (unknown) date) void unknown) (unknown) (no (unknown) (unknown) Respiration (units (un known) date) 16 unknown) (unknown) (no (unknown) (unknown) Results (units (unkno wn) date) unknown) (unknown) (no (unknown) (unknown) S/P CABG x 1 (units (u nknown) date) (09/2018) unknown) (unknown) (no (unknown) (unknown) SHREYAS (stress (units (un known) date) urinary unknown) incontinence), male (unknown) (no (unknown) (unknown) Signed By: (units (unk nown) date) unknown) (unknown) (no (unknown) (unknown) Sister Cancer (units (unknown) date) unknown) (unknown) (no (unknown) (unknown) Smoking Status: (units (unknown) date) Former smoker unknown) (unknown) (no (unknown) (unknown) Smoking Status: (units (unknown) date) Former smoker unknown) (unknown) (no (unknown) (unknown) Social History (units (unknown) date) (Reviewed unknown) 07/20/21 @ 09:29 by Bud John MD) (unknown) (no (unknown) (unknown) Sugars, (units (unkno wn) date) Metabolically unknown) Active Adverse Reaction (Mild, Verified 03/13/22 09:11) (unknown) (no (unknown) (unknown) Surgical History (units (unknown) date) (Reviewed unknown) 07/20/21 @ 09:29 by Bud John MD) (unknown) (no (unknown) (unknown) This note may (units ( unknown) date) have been all or unknown) partially generated using voice recognition (unknown) (no (unknown) (unknown) Tobacco Status (units (unknown) date) unknown) (unknown) (no (unknown) (unknown) Urine Dipstick (units (unknown) date) unknown) (unknown) (no (unknown) (unknown) Valvular heart (units (unknown) date) disease unknown) (unknown) (no (unknown) (unknown) Visit Reasons: 3 (units (unknown) date) mo f/u PSA / PVR unknown) (unknown) (no (unknown) (unknown) Vitals (units (unkno wn) date) unknown) (unknown) (no (unknown) (unknown) abiraterone 500 (units (unknown) date) mg tablet 1,000 unknown) mg PO DAILY #90 tabs 12/13/21 [Rx Confirmed (unknown) (no (unknown) (unknown) alcohol intake: (units (unknown) date) never unknown) (unknown) (no (unknown) (unknown) caffeine: Yes (units (unknown) date) unknown) (unknown) (no (unknown) (unknown) gluten Adverse (units (unknown) date) Reaction (Severe, unknown) Verified 03/13/22 09:11) (unknown) (no (unknown) (unknown) have occurred. (units (unknown) date) If there are any unknown) questions, please contact the Medical Records (unknown) (no (unknown) (unknown) household (units (unkn own) date) members: spouse unknown) (unknown) (no (unknown) (unknown) lactase [From (units ( unknown) date) Dairy Aid] unknown) Adverse Reaction (Mild, Verified 03/13/22 09:11) (unknown) (no (unknown) (unknown) marital status: (units (unknown) date) unknown) (unknown) (no (unknown) (unknown) may occur. (units (unk nown) date) Occasional unknown) wrong-word or 'sound-alike' substitutions may have (unknown) (no (unknown) (unknown) number of (units (unkn own) date) children: 3 unknown) (unknown) (no (unknown) (unknown) occurred due to (units (unknown) date) the inherent unknown) limitations of voice recognition software. Please (unknown) (no (unknown) (unknown) prednisone 5 mg (units (unknown) date) tablet 5 mg PO unknown) BID #180 tabs 12/07/21 [Rx Confirmed 03/13/22] (unknown) (no (unknown) (unknown) read the note (units ( unknown) date) carefully and unknown) recognize, using context, where these substitutions (unknown) (no (unknown) (unknown) software. (units (unkn own) date) Although every unknown) effort is made to edit content, crop roller errors (unknown) (no (unknown) (unknown) void residual (units ( unknown) date) unknown) Result panel 3 (unknown) (no (unknown) (unknown) (no value) (units (unk nown) date) unknown) (unknown) (no (unknown) (unknown) Code(s): (units (unkno wn) date) unknown) (unknown) (no (unknown) (unknown) Orders: (units (unkno wn) date) unknown) (unknown) (no (unknown) (unknown) Status: Acute (units ( unknown) date) unknown) (unknown) (no (unknown) (unknown) (no value) (units (unk nown) date) unknown) (unknown) (no (unknown) (unknown) 03/13/22 (units (unkno wn) date) unknown) (unknown) (no (unknown) (unknown) 03/13/22 1009 (units ( unknown) date) unknown) (unknown) (no (unknown) (unknown) 09:24 (units (unkno wn) date) unknown) (unknown) (no (unknown) (unknown) [place], [place] (units ( unknown) date) [id number] unknown) (unknown) (no (unknown) (unknown) Congested (units (unkn own) date) unknown) (unknown) (no (unknown) (unknown) Diabetes (units (unkno wn) date) mellitus unknown) (unknown) (no (unknown) (unknown) GI Upset, (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 (unknown) (no (unknown) (unknown) ITCHING (units (unkno wn) date) unknown) (unknown) (no (unknown) (unknown) [facility] (units (unknown) date) unknown) (unknown) (no (unknown) (unknown) Signed (units (unkno wn) date) unknown) (unknown) (no (unknown) (unknown) UTI (urinary (units (u nknown) date) tract infection) unknown) (unknown) (no (unknown) (unknown) Urology Office (units (unknown) date) Visit unknown) (unknown) (no (unknown) (unknown) (no value) (units (unk nown) date) unknown) (unknown) (no (unknown) (unknown) Urine Appearance (units (unknown) date) Clear Last unknown) Edit by Rosalba Mercer RN on 03/13/22 09:27 (unknown) (no (unknown) (unknown) Urine Bilirubin (units (unknown) date) Negative Last unknown) Edit by Rosalba Mercer RN on 03/13/22 09:27 (unknown) (no (unknown) (unknown) Urine Blood (units (un known) date) Negative Last unknown) Edit by Rosalba Mercer RN on 03/13/22 09:27 (unknown) (no (unknown) (unknown) Urine Color (units (un known) date) Amanda Last unknown) Edit by Rosalba Mercer RN on 03/13/22 09:27 (unknown) (no (unknown) (unknown) Urine Glucose (units ( unknown) date) Negative mg/dL unknown) Last Edit by Rosalba Mercer RN on 03/13/22 09 (unknown) (no (unknown) (unknown) Urine Ketones (units ( unknown) date) Negative Last unknown) Edit by Rosalba Mercer RN on 03/13/22 09:27 (unknown) (no (unknown) (unknown) Urine Leukocyte (units (unknown) date) Esterase Negative unknown) Last Edit by Rosalba Mercer RN on 03/13 (unknown) (no (unknown) (unknown) Urine Nitrate (units ( unknown) date) Negative Last unknown) Edit by Rosalba Mercer RN on 03/13/22 09:27 (unknown) (no (unknown) (unknown) Urine Protein (units ( unknown) date) Negative Last unknown) Edit by Rosalba Mercer RN on 03/13/22 09:27 (unknown) (no (unknown) (unknown) Urine Specific (units (unknown) date) Bryant 1.025 unknown) Last Edit by Rosalba Mercer RN on 03/13/22 (unknown) (no (unknown) (unknown) Urine (units (unkno wn) date) Urobilinogen - unknown) 0.2 mg/dL Last Edit by Rosalba Mercer RN on 03/13/ (unknown) (no (unknown) (unknown) Urine pH 5.5 (units (unknown) date) Last Edit by unknown) Rosalba Mercer RN on 03/13/22 09:27 (unknown) (no (unknown) (unknown) (1) Prostate (units (u nknown) date) cancer metastatic unknown) to bone: (unknown) (no (unknown) (unknown) (2) SHREYAS (stress (units (unknown) date) urinary unknown) incontinence), male: (unknown) (no (unknown) (unknown) / (units (unkno wn) date) unknown) (unknown) (no (unknown) (unknown) 03/13/22 (units (unkno wn) date) unknown) (unknown) (no (unknown) (unknown) 03/13/22] (units (unkn own) date) unknown) (unknown) (no (unknown) (unknown) 09:27 (units (unkno wn) date) unknown) (unknown) (no (unknown) (unknown) 1. Return to (units (u nknown) date) [facility] 6 unknown) months for clinical update, PSA, PVR. (unknown) (no (unknown) (unknown) 2. Continue (units (un known) date) abiraterone plus unknown) prednisone. (unknown) (no (unknown) (unknown) (units (unkno wn) date) unknown) (unknown) (no (unknown) (unknown) 76 Y/O M (units (unkno wn) date) presents to unknown) clinic for 3 month follow prostate specific antigen/post (unknown) (no (unknown) (unknown) :27 (units (unkno wn) date) unknown) (unknown) (no (unknown) (unknown) Again explained (units (unknown) date) available options unknown) for management of post prostatectomy stress (unknown) (no (unknown) (unknown) Age/Sex: 76 / M (units (unknown) date) Date of unknown) Service: (unknown) (no (unknown) (unknown) All systems (units (un known) date) reviewed + are unknown) unremarkable except as noted in HPI and below (unknown) (no (unknown) (unknown) Allergies (units (unkn own) date) unknown) (unknown) (no (unknown) (unknown) Aortic valve (units (u nknown) date) replaced unknown) (09/2018) (unknown) (no (unknown) (unknown) Assessment + (units (u nknown) date) Plan unknown) (unknown) (no (unknown) (unknown) Attending Dr: (units ( unknown) date) Bud Shermanwitch unknown) (unknown) (no (unknown) (unknown) BP 151/72 H (units (unknown) date) unknown) (unknown) (no (unknown) (unknown) Bilateral (units (unkn own) date) hydrocele unknown) (unknown) (no (unknown) (unknown) Billing- Post (units ( unknown) date) Void Residual: unknown) Post Void Residual- 79739 (unknown) (no (unknown) (unknown) Bladder volume: (units (unknown) date) PVR=22ML unknown) (unknown) (no (unknown) (unknown) Blood Pressure (units (unknown) date) Location Lt unknown) brachial (unknown) (no (unknown) (unknown) Brother (units (unkno wn) date) Thyroid disease unknown) (unknown) (no (unknown) (unknown) C61 - Malignant (units (unknown) date) neoplasm of unknown) prostate; C79.51 - Secondary malignant neoplasm of (unknown) (no (unknown) (unknown) Chief Complaint (units (unknown) date) unknown) (unknown) (no (unknown) (unknown) Chief Complaint: (units (unknown) date) Metastatic, unknown) castrate sensitive prostate cancer (unknown) (no (unknown) (unknown) Curtis returns (units ( unknown) date) today with his unknown) supportive , Stefania, for follow-up of GROUP 5, (unknown) (no (unknown) (unknown) Complications: (units (unknown) date) No unknown) (unknown) (no (unknown) (unknown) Consent signed: (units (unknown) date) No unknown) (unknown) (no (unknown) (unknown) Const (units (unkno wn) date) unknown) (unknown) (no (unknown) (unknown) Coronary artery (units (unknown) date) disease unknown) (unknown) (no (unknown) (unknown) : 1945 (units (unknown) date) Acct:[id number] unknown) (unknown) (no (unknown) (unknown) Dept at (units (unkno wn) date) . unknown) (unknown) (no (unknown) (unknown) Details: (units (unkno wn) date) unknown) (unknown) (no (unknown) (unknown) Documented By: (units (unknown) date) Bud John unknown) 03/13/22 0910 (unknown) (no (unknown) (unknown) Elevated PSA (units (u nknown) date) unknown) (unknown) (no (unknown) (unknown) Encounter (units (unkn own) date) documentation, unknown) and billing-5 minutes (unknown) (no (unknown) (unknown) Exam (units (unkno wn) date) unknown) (unknown) (no (unknown) (unknown) Exam Narrative (units (unknown) date) unknown) (unknown) (no (unknown) (unknown) Exam Narrative: (units (unknown) date) unknown) (unknown) (no (unknown) (unknown) Explained (units (unkno wn) date) availability and unknown) rationale for treatment of hot flashes per his choice (unknown) (no (unknown) (unknown) [id number] (units (u nknown) date) encounter-25 unknown) minutes (unknown) (no (unknown) (unknown) Family History (units (unknown) date) (Reviewed unknown) 03/13/22 @ 10:07 by Bud John MD) (unknown) (no (unknown) (unknown) Father CAD (units (u nknown) date) (coronary artery unknown) disease) (unknown) (no (unknown) (unknown) Fragile skin (units (u nknown) date) unknown) (unknown) (no (unknown) (unknown) HLD (units (unkno wn) date) (hyperlipidemia) unknown) (unknown) (no (unknown) (unknown) HPI (units (unkno wn) date) unknown) (unknown) (no (unknown) (unknown) HTN (units (unkno wn) date) (hypertension) unknown) (unknown) (no (unknown) (unknown) He complains of (units (unknown) date) treatment related unknown) hot flashes. He continues to use penile clamp (unknown) (no (unknown) (unknown) Hearing impaired (units (unknown) date) unknown) (unknown) (no (unknown) (unknown) History of (units (unk nown) date) appendectomy unknown) (unknown) (no (unknown) (unknown) History of (units (unk nown) date) cardiac cath unknown) (02/03/21) (unknown) (no (unknown) (unknown) History of (units (unk nown) date) surgery unknown) (unknown) (no (unknown) (unknown) Hx of bilateral (units (unknown) date) cataract unknown) extraction (unknown) (no (unknown) (unknown) Informed consent (units (unknown) date) given: No unknown) (unknown) (no (unknown) (unknown) Intake (units (unkno wn) date) unknown) (unknown) (no (unknown) (unknown) Intake Note: (units (u nknown) date) unknown) (unknown) (no (unknown) (unknown) Intake performed (units (unknown) date) by: unknown) Rosalba Mercer (unknown) (no (unknown) (unknown) Intake- Clincial (units (unknown) date) Staff unknown) (unknown) (no (unknown) (unknown) Loc: [facility] (units (unkno wn) date) unknown) (unknown) (no (unknown) (unknown) Lower urinary (units ( unknown) date) tract symptoms unknown) (LUTS) (unknown) (no (unknown) (unknown) [id number] (units (unk nown) date) unknown) (unknown) (no (unknown) (unknown) Medical History (units (unknown) date) (Reviewed unknown) 03/13/22 @ 10:07 by Bud John MD) (unknown) (no (unknown) (unknown) Medications (units (un known) date) unknown) (unknown) (no (unknown) (unknown) Migraines (units (unkn own) date) unknown) (unknown) (no (unknown) (unknown) Mother No (units (unknown) date) problems noted. unknown) (unknown) (no (unknown) (unknown) N39.3 - Stress (units (unknown) date) incontinence unknown) (female) (male) (unknown) (no (unknown) (unknown) Nodular prostate (units (unknown) date) with lower unknown) urinary tract symptoms (unknown) (no (unknown) (unknown) Not repeated (units (u nknown) date) today. unknown) (unknown) (no (unknown) (unknown) Of note: (units (unkno wn) date) Patient has unknown) diagnosis of dementia. It is evident today that his (unknown) (no (unknown) (unknown) Office (units (unkno wn) date) Procedures unknown) (unknown) (no (unknown) (unknown) Orders (units (unkno wn) date) unknown) (unknown) (no (unknown) (unknown) Oxygen Delivery (units (unknown) date) Method room unknown) air (unknown) (no (unknown) (unknown) PFSH (units (unkno wn) date) unknown) (unknown) (no (unknown) (unknown) POC Urine Dip (units ( unknown) date) Today R30.0 - unknown) Dysuria (unknown) (no (unknown) (unknown) PSA 03/06/2022, (units (unknown) date) was 0.030. PVR unknown) is 22 cc. Urinalysis is clear. 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 (unknown) (no (unknown) (unknown) Pulse 64 (units (un known) date) unknown) (unknown) (no (unknown) (unknown) Pulse Oximetry (units (unknown) date) (%) 98 unknown) (unknown) (no (unknown) (unknown) Pulse Source (units (u nknown) date) Monitor unknown) (unknown) (no (unknown) (unknown) ROS (units (unkno wn) date) unknown) (unknown) (no (unknown) (unknown) Reason For Visit (units (unknown) date) unknown) (unknown) (no (unknown) (unknown) Residual: post (units (unknown) date) void unknown) (unknown) (no (unknown) (unknown) Respiration (units (un known) date) 16 unknown) (unknown) (no (unknown) (unknown) Results (units (unkno wn) date) unknown) (unknown) (no (unknown) (unknown) Review of (units (unkn own) date) clinical chart unknown) note history, patient data, previous pathology reports (unknown) (no (unknown) (unknown) Reviewed (units (unkno wn) date) findings, unknown) discussed impression, discussed options multiple times, and (unknown) (no (unknown) (unknown) S/P CABG x 1 (units (u nknown) date) (09/2018) unknown) (unknown) (no (unknown) (unknown) SHREYAS (stress (units (un known) date) urinary unknown) incontinence), male (unknown) (no (unknown) (unknown) Signed By: (units (unk nown) date) <Electronically unknown) signed by Bud John MD> (unknown) (no (unknown) (unknown) Sister Cancer (units (unknown) date) unknown) (unknown) (no (unknown) (unknown) Smoking Status: (units (unknown) date) Former smoker unknown) (unknown) (no (unknown) (unknown) Smoking Status: (units (unknown) date) Former smoker unknown) (unknown) (no (unknown) (unknown) Social History (units (unknown) date) (Reviewed unknown) 03/13/22 @ 10:07 by Bud John MD) (unknown) (no (unknown) (unknown) Sugars, (units (unkno wn) date) Metabolically unknown) Active Adverse Reaction (Mild, Verified 03/13/22 09:11) (unknown) (no (unknown) (unknown) Surgical History (units (unknown) date) (Reviewed unknown) 03/13/22 @ 10:07 by Bud John MD) (unknown) (no (unknown) (unknown) This note may (units ( unknown) date) have been all or unknown) partially generated using voice recognition (unknown) (no (unknown) (unknown) Tobacco Status (units (unknown) date) unknown) (unknown) (no (unknown) (unknown) Urine Dipstick (units (unknown) date) unknown) (unknown) (no (unknown) (unknown) Valvular heart (units (unknown) date) disease unknown) (unknown) (no (unknown) (unknown) Visit Reasons: 3 (units (unknown) date) mo f/u PSA / PVR unknown) (unknown) (no (unknown) (unknown) Vitals (units (unkno wn) date) unknown) (unknown) (no (unknown) (unknown) abiraterone 500 (units (unknown) date) mg tablet 1,000 unknown) mg PO DAILY #90 tabs 12/13/21 [Rx Confirmed (unknown) (no (unknown) (unknown) alcohol intake: (units (unknown) date) never unknown) (unknown) (no (unknown) (unknown) and desire. (units (un known) date) unknown) (unknown) (no (unknown) (unknown) as needed and (units ( unknown) date) external unknown) incontinence appliances. (unknown) (no (unknown) (unknown) ay occur. (units (unkn own) date) Occasional unknown) wrong-word or 'sound-alike' substitutions may have (unknown) (no (unknown) (unknown) bilateral (units (unkn own) date) scrotal unknown) orchiectomy 04/24/2021. Post orchiectomy PSA in June 2021 (unknown) (no (unknown) (unknown) bone (units (unkno wn) date) unknown) (unknown) (no (unknown) (unknown) caffeine: Yes (units (unknown) date) unknown) (unknown) (no (unknown) (unknown) cognitive (units (unkn own) date) function seems to unknown) be declining. His same subject matter has been (unknown) (no (unknown) (unknown) discussed at (units (u nknown) date) previous visits. unknown) Today 3 renditions of explanation for management (unknown) (no (unknown) (unknown) discussion. (units (un known) date) unknown) (unknown) (no (unknown) (unknown) gluten Adverse (units (unknown) date) Reaction (Severe, unknown) Verified 03/13/22 09:11) (unknown) (no (unknown) (unknown) had dropped to (units (unknown) date) 0.060. unknown) Abiraterone plus prednisone has now been added to ADT (unknown) (no (unknown) (unknown) have occurred. (units (unknown) date) If there are any unknown) questions, please contact the Medical Records (unknown) (no (unknown) (unknown) household (units (unkn own) date) members: spouse unknown) (unknown) (no (unknown) (unknown) incontinence (units (u nknown) date) device is, verses unknown) trial imipramine, verses placement artificial (unknown) (no (unknown) (unknown) lactase [From (units ( unknown) date) Dairy Aid] unknown) Adverse Reaction (Mild, Verified 03/13/22 09:11) (unknown) (no (unknown) (unknown) left iliac crest (units (unknown) date) consistent with unknown) metastatic disease. The patient then underwent (unknown) (no (unknown) (unknown) management. (units (un known) date) unknown) (unknown) (no (unknown) (unknown) marital status: (units (unknown) date) unknown) (unknown) (no (unknown) (unknown) number of (units (unkn own) date) children: 3 unknown) (unknown) (no (unknown) (unknown) occurred due to (units (unknown) date) the inherent unknown) limitations of voice recognition software. Please (unknown) (no (unknown) (unknown) operative (units (unkn own) date) reports and unknown) imaging library for encounter-10 minutes (unknown) (no (unknown) (unknown) options of (units (unk nown) date) current treatment unknown) and postsurgical outcomes. 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 Post (unknown) (no (unknown) (unknown) prednisone 5 mg (units (unknown) date) tablet 5 mg PO unknown) BID #180 tabs 12/07/21 [Rx Confirmed 03/13/22] (unknown) (no (unknown) (unknown) prostatectomy (units ( unknown) date) PSA remained unknown) detectable at 1.770. Preoperative metastatic survey (unknown) (no (unknown) (unknown) read the note (units ( unknown) date) carefully and unknown) recognize, using context, where these substitutions (unknown) (no (unknown) (unknown) recommended (units (un known) date) follow-up. unknown) (unknown) (no (unknown) (unknown) showed no (units (unkn own) date) evidence of unknown) metastatic disease. Post prostatectomy repeat metastatic (unknown) (no (unknown) (unknown) software. (units (unkn own) date) Although every unknown) effort is made to edit content, crop roller errors m (unknown) (no (unknown) (unknown) survey (units (unkno wn) date) demonstrated new unknown) increased uptake at the right 9th, and 10th rib, and (unknown) (no (unknown) (unknown) urinary (units (unkno wn) date) incontinence unknown) including continued use of penile clamp and external (unknown) (no (unknown) (unknown) urinary (units (unkno wn) date) sphincter. unknown) Medical illustrations again used to facilitate the (unknown) (no (unknown) (unknown) void residual (units ( unknown) date) unknown) Social History date description facility (no date) Ex-smoker (finding) [facility] Vital Signs date measurement value units [id number] BP_diastolic BP_diastolic 72 mm[H g] [id number]+0000 BP_systolic BP_systolic 151 mm[Hg] [id number]+0000 heart_rate heart_rate 64 /min [id number]+0000 respiration_rate respiration_rate 16 /min
[2022-04-27 18:52] LABS: BASOPHILS % (AUTO) 0.7 %; EOSINOPHILS % (AUTO) 0.7 %; HCT - HEMATOCRIT 39.5 % (42.0-52.0); HGB - HEMOGLOBIN 13.6 g/dL (14.0-18.0); LYMPHOCYTES # (AUTO) 0.6 10^3/uL (1.5-3.5); LYMPHOCYTES % (AUTO) 10.6 %; MEAN CORPUSCULAR HEMOGLOBIN 33.7 pg (27.0-31.0); MEAN CORPUSCULAR HGB CONC 34.4 g/dL (32.0-36.0); MEAN PLATELET VOLUME 10.8 fL (7.4-11.4); MONOCYTES # (AUTO) 0.4 10^3/uL (0.0-1.0); MONOCYTES % (AUTO) 7.5 %; NEUTROPHILS # (AUTO) 4.4 10^3/uL (1.5-6.6); NEUTROPHILS % (AUTO) 80.3 %; PLT - PLATELET COUNT 124 10^3/uL (130-450); RED BLOOD COUNT 4.03 10^6/uL (4.70-6.10); RED CELL DISTRIBUTION WIDTH 12.3 % (12.0-15.0); WHITE BLOOD COUNT 5.5 x10^3/uL (4.8-10.8)
[2022-04-27 19:05] LABS: BILIRUBIN,URINE NEGATIVE (NEGATIVE); CLARITY,URINE CLEAR (CLEAR); GLUCOSE, URINE (UA) NEGATIVE (NEGATIVE); KETONES,URINE (UA) NEGATIVE (NEGATIVE); LEUKOCYTE ESTERASE, URINE NEGATIVE (NEGATIVE); NITRITE,URINE NEGATIVE (NEGATIVE); OCCULT BLOOD,URINE NEGATIVE (NEGATIVE); PROTEIN,URINE NEGATIVE (NEGATIVE); UROBILINOGEN,URINE 0.2 (NORMAL) E.U./dL (NORMAL)
[2022-04-27 19:09] LABS: ALBUMIN/GLOBULIN RATIO 1.6 (1.0-2.2); BILIRUBIN,TOTAL 0.9 mg/dL (0.2-1.0); CALCIUM 9.2 mg/dL (8.5-10.3); POTASSIUM 3.9 mmol/L (3.5-5.0); TOTAL PROTEIN 6.5 g/dL (6.7-8.2)
[2022-04-27] MEDS ORDERED: SODIUM CHLORIDE 0.9% 1,000 ML IV STA (19:13)
--- NOTE | 2022-04-27 19:17 | ED Physician Documentation ---
History of Present Illness - Stated complaint Stated Complaint: DIZZY/WEAK - Chief complaint Chief Complaint: Neuro - Additonal information Additional information: 76-year-old male presents emergency department for feeling generally weak and lightheaded over the last 24 hours. He denies any chest pain or shortness of air. Patient states that he will be doing his activities and then feels suddenly fatigued and simply has to rest. He denies that he is having a sensation of spinning or feeling off balance. He does report a history of vertigo but states that the symptoms today are not consistent with what he knows to be his vertigo. No headache, nausea or vomiting. No urinary symptoms. No fevers. The gentleman initially describes himself as very healthy and denies that he takes any medications. However after further prompting he does endorse that he was treated for prostate cancer and is currently in remission. He also has had both of his testes removal secondary to that. 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 These cardiac surgeries were done in 2018/2019. He denies that he is taking aspirin, Plavix, any antiplatelet or anticoagulation. On exam he appears rather well. Review of Systems Constitutional: denies: Fever, Chills Eyes: reports: Loss of vision Nose: reports: Reviewed and negative Throat: reports: Reviewed and negative Cardiac: reports: Reviewed and negative Respiratory: reports: Reviewed and negative GI: reports: Reviewed and negative : reports: Reviewed and negative Skin: reports: Reviewed and negative Musculoskeletal: reports: Reviewed and negative Neurologic: denies: Generalized weakness, Focal weakness, Headache, Head injury PD PAST MEDICAL HISTORY - Past Medical History Cardiovascular: Hypertension, High cholesterol Respiratory: None Neuro: None Endocrine/Autoimmune: None GI: None : Benign prostate hypertrophy HEENT: Chronic hearing loss Psych: None Musculoskeletal: Osteoarthritis - Past Surgical History Past Surgical History: Yes General: Appendectomy Ortho: Other Cardiovascular: Valve replacement HEENT: Cataracts - Present Medications Home Medications: Ambulatory Orders Medication Instructions Recorded Confirmed Blood Pressure Pill 0 mg DAILY 10/14/19 Statin 0 mg DAILY 10/14/19 Tamsulosin HCl [Flomax] 0.4 mg DAILY 10/14/19 10/14/19 - Allergies Allergies/Adverse Reactions: Allergies Allergy/AdvReac Type Severity Reaction Status Date / Time No Known Drug Allergies Allergy Verified 01/15/20 12:10 - Social History Does the pt smoke?: No Smoking Status: Never smoker Does the pt drink ETOH?: No Does the pt have substance abuse?: No - Immunizations Immunizations are current?: No PD ED PE NORMAL - General General: Alert and oriented X 3, No acute distress, Well developed/nourished - HEENT HEENT: Atraumatic, Moist mucous membranes, Pharynx benign - Neck Neck: Supple, no meningeal sign, No JVD - Cardiac Cardiac: RRR, Strong equal pulses. No: No murmur (Systolic murmur), No gallop, No rub - Respiratory Respiratory: No respiratory distress, Clear bilaterally - Abdomen Abdomen: Normal bowel sounds, Soft, Non tender - Derm Derm: Normal color, Warm and dry, No rash - Extremities Extremities: No deformity, No tenderness to palpate, Normal ROM s pain - Neuro Neuro: Alert and oriented X 3, jewel setter 2-12 intact, No motor deficit, No sensory deficit, Normal speech, Other (Normal finger-nose, normal rapid alternating movements. Normal gait) Eye Opening: Spontaneous Motor: Obeys Commands Verbal: Oriented GCS Score: 15 - Psych Psych: Normal mood Results - Vitals Vitals: Vital Signs - 24 hr 04/27/22 04/27/22 04/27/22 18:30 19:10 19:15 Temperature 36.8 C Heart Rate 69 Heart Rate [ 65 Sitting] Heart Rate [ Standing] Respiratory 17 Rate Blood Pressure 136/69 H Blood Pressure 124/66 [Sitting] Blood Pressure [Standing] Blood Pressure 134/69 H [Supine] O2 Saturation 98 04/27/22 04/27/22 19:20 20:32 Temperature Heart Rate 64 Heart Rate [ Sitting] Heart Rate [ 77 Standing] Respiratory 18 Rate Blood Pressure 130/67 Blood Pressure [Sitting] Blood Pressure 119/64 [Standing] Blood Pressure [Supine] O2 Saturation 99 Oxygen O2 Source Room air - EKG (time done) 1845 Rate: Rate (enter#) (70) Rhythm: NSR [place]: Normal Intervals: Normal [place]. No: Prolonged QT QRS: Normal Ischemia: Normal ST segments Compare to prior EKG: Old EKG unavailable Computer interpretation: Agree with computer - Labs Labs: Laboratory Tests 04/27/22 04/27/22 04/27/22 18:46 18:46 18:46 WBC 5.5 RBC 4.03 L Hgb 13.6 L Hct 39.5 L MCV 98.0 H MCH 33.7 H MCHC 34.4 RDW 12.3 Plt Count 124 L MPV 10.8 Neut # (Auto) 4.4 Lymph # (Auto) 0.6 L [place] # (Auto) 0.4 Eos # (Auto) 0.0 Baso # (Auto) 0.0 Absolute Nucleated RBC 0.00 Nucleated RBC % 0.0 Sodium 138 Potassium 3.9 Chloride 103 Carbon Dioxide 25 Anion Gap 10.0 BUN 25 H Creatinine 1.0 Estimated GFR (MDRD) 72 L Glucose 114 H Calcium 9.2 Total Bilirubin 0.9 AST 28 ALT 23 Alkaline Phosphatase 86 Troponin I High Sens 11.8 Total Protein 6.5 L Albumin 4.0 Globulin 2.5 Albumin/Globulin Ratio 1.6 Lipase 32 Urine Color Urine Clarity Urine pH Ur Specific Kirk[place] Urine Protein Urine Glucose (UA) Urine Ketones Urine Occult Blood Urine Nitrite Urine Bilirubin Urine Urobilinogen Ur Leukocyte Esterase Ur Microscopic Review Urine Culture Comments 04/27/22 18:55 WBC RBC Hgb Hct MCV MCH MCHC RDW Plt Count MPV Neut # (Auto) Lymph # (Auto) [place] # (Auto) Eos # (Auto) Baso # (Auto) Absolute Nucleated RBC Nucleated RBC % Sodium Potassium Chloride Carbon Dioxide Anion Gap BUN Creatinine Estimated GFR (MDRD) Glucose Calcium Total Bilirubin AST ALT Alkaline Phosphatase Troponin I High Sens Total Protein Albumin Globulin Albumin/Globulin Ratio Lipase Urine Color YELLOW Urine Clarity CLEAR Urine pH 5.0 Ur Specific Kirksey >=1.030 H Urine Protein NEGATIVE Urine Glucose (UA) NEGATIVE Urine Ketones NEGATIVE Urine Occult Blood NEGATIVE Urine Nitrite NEGATIVE Urine Bilirubin NEGATIVE Urine Urobilinogen 0.2 (NORMAL) Ur Leukocyte Esterase NEGATIVE Ur Microscopic Review NOT INDICATED Urine Culture Comments NOT INDICATED - Rads (name of study) cxr Radiology: Final report received (No acute cardiopulmonary process) PD MEDICAL DECISION MAKING - ED course Complexity details: reviewed results, re-evaluated patient, vanessa stoll, d/w patient, d/w family ED course: 76-year-old male presents emergency department for evaluation of feeling generally weak fatigued over the last few days. He this has been the [place] the [place] far and he has been outside doing a lot of yard work as well as sweating though he has been trying to stay hydrated. He denies having any chest pain or shortness of air. He has not had any vertiginous symptoms. Screening labs, EKG and chest x-ray are all essentially normal. His orthostatic blood pressures were negative. He was given a liter of IV fluids here in the emergency department and on repeat exam is feeling markedly improved. Discussed with patient usual routine emergent return precautions. He has a primary care provider that he has good follow-up with and I have advised him to discuss this ED visit this upcoming week. Departure - Departure Disposition: 01 Home, Self Care Clinical Impression: Generalized weakness, Dehydration Comments: You are seen today in the emergency department because you have been feeling generally weak and fatigued. Your screening chest x-ray, EKG and labs are all essentially normal. We did check your blood pressure in different positions and did not find that you have a condition called orthostasis. Your urine shows no signs of infection. You are not having a heart attack. As we discussed at the bedside I suspect the cause of your Symptoms is likely some dehydration given the amount of sweating you have been doing as well as spending time in the sun. You are feeling much better after liter of IV fluids. I encourage you to reduce the time outside where you may lose water and electrolytes by sweating, try and drink about 2 L of water a day. If at any point you feel that your symptoms worsen, you have fainting episodes, chest pain or sudden shortness of air then please return immediately to the ER for second evaluation
--- NOTE | 2022-04-27 19:47 | XRAY Report ---
PROCEDURE: Chest 1 View X-Ray INDICATIONS: Chest Pain TECHNIQUE: One view of the chest was acquired. COMPARISON: 10/23/2018 FINDINGS: Surgical changes and devices: None. Lungs and pleura: No pleural effusions or pneumothorax. Lungs are clear. Mediastinum: Mediastinal contours appear normal. Heart size is normal. Bones and chest wall: No suspicious bony lesions. Overlying soft tissues appear unremarkable. IMPRESSION: Chest without acute cardiopulmonary abnormalities or focal airspace disease. Reviewed by: Santo Shook MD on 04/27/2022 7:46 PM PDT Approved by: Santo Shook MD on 04/27/2022 7:46 PM PDT Station ID: [id number]
[2022-04-27 21:10] VITALS: BP 123/76
== END 2022-04-27 21:09 | disposition home or self-care (01) ==
LOC: ED 18:19
DX: E86.0 Dehydration (principal)
CPT/HCPCS: 36415; 80053; 81001; 81003; 83690; 84484; 85025; 87086; 93005; 96360; 99284

== ENCOUNTER 2022-05-28 09:14 | Emergency (ER) | payer MEDICARE, OTHER ==
--- OUTSIDE RECORDS SUMMARY | 2022-05-28 09:47 | EXTERNAL MEDICAL SUMMARY RPT | Continuity of Care Document ---
:1945 Author Organization [facility] Address [address] [place] [address] Phone Allergies and Intolerances date description facility type (no date) [facility] (unknown) Encounters No information. Functional Status No information. Immunizations No information. Medications No information. Problems No information. Procedures date description facility [id number] Diagnosis [facility] [id number] Finding [facility] +0000 General Physician [facility] Results/Labs test date author facility value unit interpret ation Result panel 1 (unknown) (no (unknown) (unknown) (no value) (units (unk nown) date) unknown) (unknown) (no (unknown) (unknown) [place], [place] (units ( unknown) date) [id number] unknown) (unknown) (no (unknown) (unknown) Congested (units (unkn own) date) unknown) (unknown) (no (unknown) (unknown) Diabetes (units (unkno wn) date) mellitus unknown) (unknown) (no (unknown) (unknown) Draft (units (unkno wn) date) unknown) (unknown) (no (unknown) (unknown) GI Upset, (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 (unknown) (no (unknown) (unknown) ITCHING (units (unkno wn) date) unknown) (unknown) (no (unknown) (unknown) [facility] (units (unknown) date) unknown) (unknown) (no [...] (unknown) (unknown) : 1945 (units (unknown) date) Acct:[id number] unknown) (unknown) (no (unknown) (unknown) Dept at [...] symptoms unknown) (LUTS) (unknown) (no (unknown) (unknown) [id number] (units (unk nown) date) unknown) (unknown) (no [...] unknown) effort is made to edit content, rehab nurse errors (unknown) (no (unknown) (unknown) void residual [...] wn) date) unknown) (unknown) (no (unknown) (unknown) [place], [place] (units ( unknown) date) [address] unknown) (unknown) (no (unknown) (unknown) Congested (units [...] (unknown) (unknown) Urine Specific (units (unknown) date) Clutier 1.025 unknown) Last Edit by Rosalba Mercer [...] date) Void Residual: unknown) Post Void Residual- 15929 (unknown) (no (unknown) (unknown) Bladder volume: (units [...] (unknown) (unknown) : 1945 (units (unknown) date) Acct:[id number] unknown) (unknown) (no (unknown) (unknown) Dept at [...] symptoms unknown) (LUTS) (unknown) (no (unknown) (unknown) [id number] (units (unk nown) date) unknown) (unknown) (no [...] unknown) effort is made to edit content, rehab nurse errors (unknown) (no (unknown) (unknown) void residual [...] wn) date) unknown) (unknown) (no (unknown) (unknown) [place], [place] (units ( unknown) date) [id number] unknown) (unknown) (no (unknown) (unknown) Congested (units [...] (unknown) (unknown) Urine Specific (units (unknown) date) Clutier 1.025 unknown) Last Edit by Rosalba Mercer [...] 1. Return to (units (u nknown) date) [facility] 6 unknown) months for clinical update, [...] date) Void Residual: unknown) Post Void Residual- 11776 (unknown) (no (unknown) (unknown) Bladder volume: (units [...] (unknown) (unknown) : 1945 (units (unknown) date) Acct:[id number] unknown) (unknown) (no (unknown) (unknown) Dept at [...] per his choice (unknown) (no (unknown) (unknown) [id number]-[id number] (units (u nknown) date) encounter-25 unknown) minutes [...] symptoms unknown) (LUTS) (unknown) (no (unknown) (unknown) [id number] (units (unk nown) date) unknown) (unknown) (no [...] outcomes. 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 (units (u nknown) date) status post unknown) [...] unknown) effort is made to edit content, rehab nurse errors m (unknown) (no (unknown) (unknown) survey [...] (units ( unknown) date) unknown) Result panel 4 (unknown) (no (unknown) (unknown) (no value) (units (unk nown) date) unknown) (unknown) (no (unknown) (unknown) [address] (units (unkn own) date) Street unknown) (unknown) (no (unknown) (unknown) [place] (units ( unknown) date) [address] unknown) (unknown) (no (unknown) (unknown) [facility] (units (unknown) date) unknown) (unknown) (no (unknown) (unknown) Signed (units (unkno wn) date) unknown) (unknown) (no (unknown) (unknown) Ultrasound (units (unk nown) date) Report unknown) (unknown) (no (unknown) (unknown) (no value) (units (unk nown) date) unknown) (unknown) (no (unknown) (unknown) 05/10/22 (units (unkno wn) date) unknown) (unknown) (no (unknown) (unknown) Approved by: (units (u nknown) date) Thang Noble M.D. unknown) on 05/10/2022 at 13:59 (unknown) (no (unknown) (unknown) COMPARISON: (units (un known) date) None. unknown) (unknown) (no (unknown) (unknown) Dictated by: (units (u nknown) date) Thang Noble M.D. unknown) on 05/10/2022 at 13:58 (unknown) (no (unknown) (unknown) FINDINGS: The (units (unknown) date) common femoral, unknown) femoral and popliteal veins are normally (unknown) (no (unknown) (unknown) IMPRESSION: No (units (unknown) date) evidence of DVT unknown) in visualized right lower extremity veins. (unknown) (no (unknown) (unknown) INDICATIONS: (units (u nknown) date) right leg larger unknown) than left (unknown) (no (unknown) (unknown) [id number] (units (unk nown) date) unknown) (unknown) (no (unknown) (unknown) Real-time (units (unkn own) date) imaging, as well unknown) as color and pulse Doppler interrogation, were (unknown) (no (unknown) (unknown) TECHNIQUE: (units (unk nown) date) unknown) (unknown) (no (unknown) (unknown) free of (units (unkno wn) date) intraluminal unknown) thrombus. Color and pulse Doppler demonstrate normal (unknown) (no (unknown) (unknown) intraluminal (units (u nknown) date) flow. There is unknown) normal augmentation response to distal compression (unknown) (no (unknown) (unknown) the lower (units (unkn own) date) extremity deep unknown) veins from the inguinal ligament to the popliteal (unknown) (no (unknown) (unknown) Accession (units (unkn own) date) Number: unknown) [id number] (unknown) (no (unknown) (unknown) Age/Sex: 76 / M (units (unknown) date) Date of unknown) Service: (unknown) (no (unknown) (unknown) : 1945 (units (unknown) date) unknown) Acct:[id number] (unknown) (no (unknown) (unknown) Loc: [place] (units (unkno wn) date) unknown) (unknown) (no (unknown) (unknown) Ordering (units (unkno wn) date) Provider: unknown) Roxanna Mccall (unknown) (no (unknown) (unknown) PROCEDURE: US (units (unknown) date) PERIPH VENOUS unknown) LOW EXTREM RT (unknown) (no (unknown) (unknown) Patient: (units (unkno wn) date) Denaeinhaydee,Sathish unknown) P MR#: (unknown) (no (unknown) (unknown) Procedure: US (units ( unknown) date) periph venous unknown) low extrem rt (unknown) (no (unknown) (unknown) compressible, (units ( unknown) date) and unknown) (unknown) (no (unknown) (unknown) fossa. (units (unkno wn) date) unknown) (unknown) (no (unknown) (unknown) maneuver. (units (unkn own) date) unknown) (unknown) (no (unknown) (unknown) performed of (units (u nknown) date) unknown) (unknown) (no (unknown) (unknown) phasic (units (unkno wn) date) unknown) Social History date description facility (no date) Ex-smoker (finding) [facility] Vital Signs date measurement value units [id number] BP_diastolic BP_diastolic 72 mm[H g] [id number]+0000 BP_systolic BP_systolic 151 mm[Hg] [id number]+0000 heart_rate heart_rate 64 /min [id number]+0000 respiration_rate respiration_rate 16 /min
--- NOTE | 2022-05-28 09:48 | ED Physician Documentation ---
PD HPI ABD PAIN - Stated complaint Stated Complaint: BACK PX - Chief complaint Chief Complaint: Back Pain - History obtained from History obtained from: Patient - History of Present Illness Timing - onset: Last night Timing - duration: Hours (12) Timing - details: Abrupt onset, Still present Quality: Aching, Sharp, Pain Location: Epigastric Radiation: Chest, Other (left neck and left side of headache.), Upper back Review of Systems Constitutional: denies: Fever, Chills Nose: denies: Rhinorrhea / runny nose, Congestion Throat: denies: Sore throat Cardiac: reports: Chest pain / pressure Respiratory: denies: Cough GI: reports: Abdominal Pain. denies: Nausea, Vomiting, Diarrhea Skin: denies: Rash, Lesions Musculoskeletal: reports: Back pain Neurologic: denies: Focal weakness, Numbness, Confused, Altered mental status PD PAST MEDICAL HISTORY - Past Medical History Cardiovascular: Hypertension, High cholesterol Respiratory: None Neuro: None Endocrine/Autoimmune: None GI: None : Benign prostate hypertrophy HEENT: Chronic hearing loss Psych: None Musculoskeletal: Osteoarthritis - Past Surgical History Past Surgical History: Yes General: Appendectomy Ortho: Other Cardiovascular: Valve replacement HEENT: Cataracts - Present Medications Home Medications: Ambulatory Orders Medication Instructions Recorded Confirmed Blood Pressure Pill 0 mg DAILY 10/14/19 Statin 0 mg DAILY 10/14/19 Tamsulosin HCl [Flomax] 0.4 mg DAILY 10/14/19 10/14/19 HYDROcod/ACETAM 5/325 [[place] 5/325] 1 ea PO Q6H PRN #18 tablet 05/28/22 methocarbamoL [Robaxin] 500 mg PO Q6H PRN #20 tablet 05/28/22 - Allergies Allergies/Adverse Reactions: Allergies Allergy/AdvReac Type Severity Reaction Status Date / Time No Known Drug Allergies Allergy Verified 05/28/22 09:22 - Living Situation Living Situation: reports: With spouse/s.o. Living Arrangement: reports: At home - Social History Does the pt smoke?: No Smoking Status: Never smoker Does the pt drink ETOH?: No Does the pt have substance abuse?: No - Family History Family history: denies: Aortic aneursym, Aortic dissection - Immunizations Immunizations are current?: No PD ED PE NORMAL - Vitals Vital signs reviewed: Yes - General General: Alert and oriented X 3, No acute distress, Well developed/nourished - Neck Neck: Supple, no meningeal sign, No adenopathy, No bruit - Cardiac Cardiac: RRR, No murmur - Respiratory Respiratory: Clear bilaterally - Abdomen Abdomen: Normal bowel sounds, Soft, Non distended, Other (tender epigastric area without guarding nor rebound. ) - Derm Derm: Normal color, Warm and dry - Extremities Extremities: No edema, No calf tenderness / cord - Neuro Neuro: Alert and oriented X 3, network technician 2-12 intact, No motor deficit, No sensory deficit, Normal speech Results - Vitals Vitals: Oxygen O2 Source Room air - EKG (time done) 09:28 Rate: Rate (enter#) (55) Rhythm: Sinus bradycardia [place]: Normal Intervals: Normal MT QRS: Normal Ischemia: Normal ST segments. No: ST elevation c/w ischemia, ST depression - Labs Labs: Laboratory Tests 05/28/22 05/28/22 05/28/22 09:44 09:44 09:44 WBC 7.8 RBC 4.16 L Hgb 13.7 L Hct 40.3 L MCV 96.9 H MCH 32.9 H MCHC 34.0 RDW 11.9 L Plt Count 131 MPV 10.2 Neut # (Auto) 6.1 Lymph # (Auto) 0.9 L Gem # (Auto) 0.8 Eos # (Auto) 0.0 Baso # (Auto) 0.0 Absolute Nucleated RBC 0.00 Nucleated RBC % 0.0 Sodium 131 L Potassium 3.6 Chloride 99 L Carbon Dioxide 23 Anion Gap 9.0 BUN 18 Creatinine 0.6 Estimated GFR (MDRD) 130 Glucose 104 H Calcium 8.9 Total Bilirubin 0.8 AST 39 ALT 30 Alkaline Phosphatase 76 Troponin I High Sens 14.5 Total Protein 6.4 L Albumin 3.9 Globulin 2.5 Albumin/Globulin Ratio 1.6 Lipase 25 Urine Color Urine Clarity Urine pH Ur Specific [place] Urine Protein Urine Glucose (UA) Urine Ketones Urine Occult Blood Urine Nitrite Urine Bilirubin Urine Urobilinogen Ur Leukocyte Esterase Ur Microscopic Review Urine Culture Comments 05/28/22 10:57 WBC RBC Hgb Hct MCV MCH MCHC RDW Plt Count MPV Neut # (Auto) Lymph # (Auto) Gem # (Auto) Eos # (Auto) Baso # (Auto) Absolute Nucleated RBC Nucleated RBC % Sodium Potassium Chloride Carbon Dioxide Anion Gap BUN Creatinine Estimated GFR (MDRD) Glucose Calcium Total Bilirubin AST ALT Alkaline Phosphatase Troponin I High Sens Total Protein Albumin Globulin Albumin/Globulin Ratio Lipase Urine Color YELLOW Urine Clarity CLEAR Urine pH 6.0 Ur Specific [place] 1.020 Urine Protein NEGATIVE Urine Glucose (UA) NEGATIVE Urine Ketones NEGATIVE Urine Occult Blood NEGATIVE Urine Nitrite NEGATIVE Urine Bilirubin NEGATIVE Urine Urobilinogen 0.2 (NORMAL) Ur Leukocyte Esterase NEGATIVE Ur Microscopic Review NOT INDICATED Urine Culture Comments NOT INDICATED - Rads (name of study) chest/abd/pelvic CT with contrast. Radiology: Prelim report reviewed (no dissection. No acute changes. Some atelectasis in lower lungs. ), See rad report PD MEDICAL DECISION MAKING - ED course Complexity details: re-evaluated patient (The patient is failing majorly improved with IV medication of Dilaudid. He had had ibuprofen shortly prior to coming to the ER so I did not give any NSAIDs. We did do labs and imaging to look for more significant cause. Presume muscular.), considered differential, d/w patient Departure - Departure Disposition: 01 Home, Self Care Clinical Impression: Hiccups Acute thoracic back pain Qualifiers: Back pain laterality: bilateral Qualified Code(s): M54.6 - Pain in thoracic spine Condition: Stable Record reviewed to determine appropriate education?: Yes Instructions: ED Sprain Thoracic Spine Prescriptions: HYDROcod/ACETAM 5/325 [[place] 5/325] 1 ea PO Q6H PRN #18 tablet PRN Reason: Pain methocarbamoL [Robaxin] 500 mg PO Q6H PRN #20 tablet PRN Reason: Spasms Comments: Your blood tests and EKG and CT scans did not show any obvious acute abnormality to account for the pain. Presume muscular strain and spasms at this point. I would continue with some anti-inflammatory such as ibuprofen 400 to 600 mg 3 times a day with food. To that add Robaxin muscle relaxant if needed for spasms and stiffness and Tylenol and/or hydrocodone if needed for worse pains. I would anticipate improvement over the next few days and resolved by 4 to 5 days. No obvious exact cause for the hiccups. I therefore would presume some reflux and esophageal irritation. He can try some antacids periodically if needed for that. I transmitted your prescriptions to [facility] in [place]. I am prescribing a short course of narcotic pain medication for you. These are potentially dangerous and addictive medications that should be used carefully. These medications may constipate you. Take an mzmz-lwc-zokdmty stool softener such as docusate twice daily with plenty of water while taking these medications. If you go 24 hours without a bowel movement, take bshg-sgf-[id number] MiraLAX, per package instructions. Do not drink or drive while taking these medications. If you received narcotic or sedating medications while in the emergency department do not drive for 24 hours. Store this medication in a safe, secure place and out of reach of children. It is a violation of federal law to give or sell this medication to another person or to use in a manner other than prescribed. The ED will not refill narcotic prescriptions, including prescriptions lost or stolen. You can dispose of unwanted medications at the [facility]'s office or at several pharmacies such as [facility]. Discharge Date/Time: 05/28/22 13:33
--- NOTE | 2022-05-28 09:49 | XRAY Report ---
PROCEDURE: Chest 1 View X-Ray INDICATIONS: Chest pain TECHNIQUE: One view of the chest was acquired. COMPARISON: 07/28/2022 FINDINGS: Surgical changes and devices: Remote CABG. Lungs and pleura: No pleural effusions or pneumothorax. Lungs are clear. Bilateral calcified plaqu es. Mediastinum: Mediastinal contours appear normal. Heart size is normal. Bones and chest wall: No suspicious bony lesions. Overlying soft tissues appear unremarkable. IMPRESSION: 1. 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 2. No evidence acute pulmonary process. Reviewed by: Siva Stevens MD on 05/28/2022 9:48 AM PDT Approved by: Siva Stevens MD on 05/28/2022 9:48 AM PDT Station ID: [id number]
[2022-05-28 10:05] LABS: BASOPHILS % (AUTO) 0.3 %; EOSINOPHILS % (AUTO) 0.1 %; HCT - HEMATOCRIT 40.3 % (42.0-52.0); HGB - HEMOGLOBIN 13.7 g/dL (14.0-18.0); LYMPHOCYTES # (AUTO) 0.9 10^3/uL (1.5-3.5); LYMPHOCYTES % (AUTO) 11.7 %; MEAN CORPUSCULAR HEMOGLOBIN 32.9 pg (27.0-31.0); MEAN CORPUSCULAR VOLUME 96.9 fL (80.0-94.0); MEAN PLATELET VOLUME 10.2 fL (7.4-11.4); MONOCYTES # (AUTO) 0.8 10^3/uL (0.0-1.0); MONOCYTES % (AUTO) 9.6 %; NEUTROPHILS # (AUTO) 6.1 10^3/uL (1.5-6.6); PLT - PLATELET COUNT 131 10^3/uL (130-450); RED BLOOD COUNT 4.16 10^6/uL (4.70-6.10); RED CELL DISTRIBUTION WIDTH 11.9 % (12.0-15.0); WHITE BLOOD COUNT 7.8 x10^3/uL (4.8-10.8)
[2022-05-28] MEDS ORDERED: HYDROmorphone 1 MG/ML CARPUJECT IVP STA (10:13)
[2022-05-28 10:18] LABS: ALBUMIN 3.9 g/dL (3.2-5.5); ALBUMIN/GLOBULIN RATIO 1.6 (1.0-2.2); BILIRUBIN,TOTAL 0.8 mg/dL (0.2-1.0); CALCIUM 8.9 mg/dL (8.5-10.3); CREATININE 0.6 mg/dL (0.6-1.2); POTASSIUM 3.6 mmol/L (3.5-5.0); TOTAL PROTEIN 6.4 g/dL (6.7-8.2)
[2022-05-28 11:04] LABS: BILIRUBIN,URINE NEGATIVE (NEGATIVE); CLARITY,URINE CLEAR (CLEAR); GLUCOSE, URINE (UA) NEGATIVE (NEGATIVE); KETONES,URINE (UA) NEGATIVE (NEGATIVE); LEUKOCYTE ESTERASE, URINE NEGATIVE (NEGATIVE); NITRITE,URINE NEGATIVE (NEGATIVE); OCCULT BLOOD,URINE NEGATIVE (NEGATIVE); PROTEIN,URINE NEGATIVE (NEGATIVE); UROBILINOGEN,URINE 0.2 (NORMAL) E.U./dL (NORMAL)
--- NOTE | 2022-05-28 11:54 | CT Report ---
PROCEDURE: CHEST W INDICATIONS: lower thoracic pain acute this AM CONTRAST: IV CONTRAST: Optiray 320 ml: 100 PO CONTRAST: *NO PO CONTRAST TECHNIQUE: After the administration of intravenous contrast, 1 mm axial images were acquired from the pulmonary apices through the posterior costophrenic angles. Axial 5 mm soft tissue kernel reconstructions were performed as well as 8 mm axial MIP and coronal and sagittal 5 mm reformations. For radiation dose reduction, the following was used: automated exposure control, adjustment of mA and/or kV according to patient size. COMPARISON: Chest x-ray 05/28/2022, CT abdomen pelvis 05/28/2022 FINDINGS: Image quality: Excellent. Lungs and pleura: No acute air space opacities. No pleural effusions or pneumothorax. Central and peripheral airways are patent and normal in caliber. Dependent changes are present within the bases bilaterally. There is a pleural calcification are present. Mediastinum: Heart size is normal. No pericardial effusion. No mediastinal or hilar adenopathy by size criteria. Thoracic aorta and central pulmonary arteries are normal in size. Esophagus is bart l in caliber. No hiatal hernia. Bones and chest wall: No suspicious bony lesions. No vertebral body compression fractures. No axil sylvia or supraclavicular adenopathy by size criteria. The thyroid is normal in size and there are no incidental findings.. Abdomen: Calcification is present within the spleen. Multiple low-attenuation bilateral simple renal cysts are present. Otherwise, visualized upper abdominal solid organs appear normal. Upper abdomina l bowel loops are normal in caliber. IMPRESSION: Dependent changes within the lungs. Pleural calcifications are present which can be represent prior a sbestosis exposure. No evidence of dissection. CLINICAL RECOMMENDATION STATEMENTS: In patients <35 years with an ITN detected on CT, MRI, or extrathyroidal ultrasound, the Committee re commends further evaluation with dedicated thyroid ultrasound if the nodule is "e1 cm and has no susp icious imaging features, and if the patient has normal life expectancy. In patients "e35 years with an ITN detected on CT, MRI, or extrathyroidal ultrasound, the Committee r ecommends further evaluation with dedicated thyroid ultrasound if the nodule is "e1.5 cm and has no s uspicious imaging features, and if the patient has normal life expectancy. (ACR, 2014) Reviewed by: Jerrica Moran MD on 05/28/2022 11:53 AM PDT Approved by: Jerrica Moran MD on 05/28/2022 11:53 AM PDT Station ID: [id number]
--- NOTE | 2022-05-28 12:07 | CT Report ---
PROCEDURE: Abdomen/Pelvis W INDICATIONS: lower thoracic pain acute this AM CONTRAST: IV CONTRAST: Optiray 320 ml: 100 PO CONTRAST: *NO PO CONTRAST TECHNIQUE: After the administration of intravenous contrast, 5 mm thick sections acquired from the diaphragms to the symphysis. 5 mm thick coronal and sagittal reformats were acquired. For radiation dose reducti on, the following was used: automated exposure control, adjustment of mA and/or kV according to toshia ent size. COMPARISON: None. FINDINGS: Image quality: Excellent. ABDOMEN: Lung bases: Incompletely visualized left upper lobe based nodule is present. Calcifications are prese nt within the pleura suggestive of asbestosis exposure. Heart size is normal. Solid organs: Liver is mildly enlarged measuring 17.0 cm with steatosis. The spleen is normal in siz e and enhancement. Splenic calcifications present. Gallbladder is unremarkable Biliary system is non dilated. Pancreas enhances normally. No adrenal nodules. Kidneys demonstrate normal size and enha ncement, without hydronephrosis. Bilateral low-attenuation renal foci are present consistent with si mple cysts. Peritoneum and bowel: Bowel loops demonstrate normal wall thickness and caliber. Prominent colonic stool is present. No free fluid or air. Nodes and vessels: No retroperitoneal or mesenteric adenopathy by size criteria. Aorta and inferior vena cava are normal in size. No evidence of dissection. Atherosclerotic calcifications are present . Miscellaneous: Fat-containing ventral hernia is present. PELVIS: Genitourinary: Bladder wall thickness is normal. Miscellaneous: No inguinal hernias or adenopathy. Bones: Foci of sclerosis are present within the left iliac bone with an appearance most suggestive of bone islands. No vertebral body compression fractures. IMPRESSION: No acute intra-abdominal or pelvic process. No evidence of dissection. Moderate colonic stool. Partially visualized lung nodule. Please see CT chest for further details. Reviewed by: Jerrica Moran MD on 05/28/2022 12:05 PM PDT Approved by: Jerrica Moran MD on 05/28/2022 12:05 PM PDT Station ID: [id number]
[2022-05-28] MEDS ORDERED: MAG HYDROX/AL HYDROX/SIMETH 30 ML UDC PO STA (13:05)
[2022-05-28 13:13] VITALS: BP 132/62
== END 2022-05-28 13:33 | disposition home or self-care (01) ==
LOC: ED 09:14
DX: M54.6 Pain in thoracic spine (principal); R06.6 Hiccough; I10 Essential (primary) hypertension
CPT/HCPCS: 36415; 71045; 71260; 74177; 80053; 81003; 83690; 84484; 85025; 93005; 96374; 99283; 99284; A9270; J1170; Q9967; 81001; 87086

== ENCOUNTER 2022-06-12 07:19 | Outpatient (CLI) | payer MEDICARE, OTHER ==
[2022-06-12 15:15] LABS: ALBUMIN/GLOBULIN RATIO 1.4 (1.0-2.2); ALKALINE PHOSPHATASE 125 IU/L (42-121); ALT ALANINE AMINOTRANSFERASE 24 IU/L (10-60); AST ASPARTATE AMINOTRANSFERASE 28 IU/L (10-42); BUN - BLOOD UREA NITROGEN 17 mg/dL (6-20); CALCIUM 9.8 mg/dL (8.5-10.3); CARBON DIOXIDE - CO2 26 mmol/L (21-32); CHLORIDE 103 mmol/L (101-111); CHOL/HDL RATIO 3.5 (<5.0); CHOLESTEROL 191 mg/dL; CREATININE 0.8 mg/dL (0.6-1.2); GFR - MDRD 93 (>89); GLUCOSE 102 mg/dL (70-100); HDL CHOLESTEROL 54 mg/dL; LDL CHOLESTEROL,CALCULATED 122 mg/dL; LDL/HDL RATIO 2.3 (<3.6); POTASSIUM 4.1 mmol/L (3.5-5.0); SODIUM 138 mmol/L (135-145); TOTAL PROTEIN 6.8 g/dL (6.7-8.2); TRIGLYCERIDES 74 mg/dL; VLDL CHOLESTEROL 15 mg/dL
== END 2022-06-12 07:20 | disposition home or self-care (01) ==
LOC: LAB 07:19
PROVIDERS: ATTEND Nurse Practitioner
DX: I25.110 Atherosclerotic heart disease of native coronary artery with unstable angina pectoris (principal); I35.0 Nonrheumatic aortic (valve) stenosis; Z95.1 Presence of aortocoronary bypass graft
CPT/HCPCS: 36415; 80053; 80061; 83721; 84443

== ENCOUNTER 2022-09-06 09:58 | Outpatient (CLI) | payer MEDICARE, OTHER | END 2022-09-06 09:59 | disposition home or self-care (01) | LOC: LAB 09:58 | PROVIDERS: ATTEND Specialist | DX: R97.20 Elevated prostate specific antigen [PSA] (principal) | CPT/HCPCS: 36415; 84153 ==

== ENCOUNTER 2023-09-05 08:05 | Outpatient (CLI) | payer MEDICARE, OTHER | END 2023-09-05 08:06 | disposition home or self-care (01) | LOC: LAB 08:05 | PROVIDERS: ATTEND Specialist | DX: R97.20 Elevated prostate specific antigen [PSA] (principal) | CPT/HCPCS: 36415; 84153 ==

== ENCOUNTER 2024-03-16 12:54 | Outpatient (CLI) | payer MEDICARE, OTHER | END 2024-03-16 12:55 | disposition home or self-care (01) | LOC: LAB 12:54 | PROVIDERS: ATTEND Specialist | DX: C61 Malignant neoplasm of prostate (principal); C79.51 Secondary malignant neoplasm of bone; R97.20 Elevated prostate specific antigen [PSA] | CPT/HCPCS: 36415; 84153 ==

== ENCOUNTER 2024-06-12 13:07 | Outpatient (CLI) | payer MEDICARE, OTHER | END 2024-06-12 23:59 | disposition critical access hospital (66) | LOC: EMS 13:07 | DX: R41.0 Disorientation, unspecified (principal); W07.XXXA Fall from chair, initial encounter; Y92.009 Unspecified place in unspecified non-institutional (private) residence as the place of occurrence of the external cause; Z77.098 Contact with and (suspected) exposure to other hazardous, chiefly nonmedicinal, chemicals; Z91.85 Personal history of military service | CPT/HCPCS: A0425; A0429 ==

== ENCOUNTER 2024-06-12 13:20 | Emergency (ER) | payer MEDICARE, OTHER ==
--- NOTE | 2024-06-12 14:17 | ED Physician Documentation ---
History of Present Illness - Stated complaint Stated Complaint: GLF - Chief complaint Chief Complaint: General - Additonal information Additional information: 78-year-old male presents to the emergency department after syncope and collapse. Accompanied by is present at bedside. Today stepped into his office to retrieve something. heard a crash. Found him down unresponsive for few minutes at home. Was confused for about 5 to 10 minutes after the event but has come back to baseline, currently reports neck, back pain, left thigh pain. Reports some similar events in the past and endorses for history of poor memory and episodes of confusion which she attributes to being exposed to "agent orange". Review of Systems Constitutional: denies: Fever Eyes: denies: Loss of vision Ears: denies: Loss of hearing Nose: denies: Rhinorrhea / runny nose Throat: denies: Dental pain / toothache Cardiac: denies: Chest pain / pressure Respiratory: denies: Dyspnea GI: denies: Abdominal Pain : denies: Dysuria Skin: denies: Rash Musculoskeletal: reports: Neck pain, Back pain Neurologic: reports: Syncope PD PAST MEDICAL HISTORY - Past Medical History Cardiovascular: Hypertension, High cholesterol Respiratory: None Neuro: None Endocrine/Autoimmune: None GI: None : Benign prostate hypertrophy HEENT: Chronic hearing loss Psych: None Musculoskeletal: Osteoarthritis - Past Surgical History Past Surgical History: Yes General: Appendectomy Ortho: Other Cardiovascular: Valve replacement HEENT: Cataracts - Present Medications Home Medications: Ambulatory Orders Medication Instructions Recorded Confirmed Blood Pressure Pill 0 mg DAILY 10/14/19 Statin 0 mg DAILY 10/14/19 Tamsulosin HCl [Flomax] 0.4 mg DAILY 10/14/19 10/14/19 HYDROcod/ACETAM 5/325 [[place] 5/325] 1 ea PO Q6H PRN #18 tablet 05/28/22 methocarbamoL [Robaxin] 500 mg PO Q6H PRN #20 tablet 05/28/22 Bacitracin Zinc Oint 1 applic TOP BID #1 each 06/12/24 HYDROcod/ACETAM 5/325 [[place] 5/325] 1 - 2 ea PO Q6H PRN #14 tablet 06/12/24 - Allergies Allergies/Adverse Reactions: Allergies Allergy/AdvReac Type Severity Reaction Status Date / Time No Known Drug Allergies Allergy Verified 06/12/24 13:30 - Social History Does the pt smoke?: No Smoking Status: Never smoker Does the pt drink ETOH?: No Does the pt have substance abuse?: No - Immunizations Immunizations are current?: No PD ED PE NORMAL - Vitals Vital signs reviewed: Yes - General General: Alert and oriented X 3, No acute distress - Neck Neck: Supple, no meningeal sign - Cardiac Cardiac: RRR - Respiratory Respiratory: No respiratory distress - Abdomen Abdomen: Normal bowel sounds - Male Male : Deferred - Back Back: Other (Back evaluation deferred until imaging obtained.) - Derm Derm: Normal color - Extremities Extremities: No deformity - Neuro Neuro: Alert and oriented X 3, affirmative action officer 2-12 intact, No motor deficit, No sensory deficit, Normal speech Results - Vitals Vitals: Vital Signs - 24 hr 06/12/24 06/12/24 06/12/24 13:26 15:45 16:44 Temperature 36.1 C L Heart Rate 86 69 72 Respiratory 18 18 18 Rate Blood Pressure 161/77 H 185/63 H 161/78 H O2 Saturation 95 95 98 Oxygen O2 Source Room air - EKG (time done) 1427 EKG releavant findings:: EKG personally interpreted by author of this note. Relevant findings are: Sinus rhythm with rate 60 bpm. Normal axis. MN interval prolonged. Normal QRS and QTc intervals. No ST segment elevations. Some nonspecific ST-T wave abnormalities noted in the precordial leads. - Labs Labs: Laboratory Tests 06/12/24 06/12/24 06/12/24 14:28 14:28 14:28 WBC 5.1 RBC 3.91 L Hgb 12.7 L Hct 38.0 L MCV 97.2 H MCH 32.5 H MCHC 33.4 RDW 12.8 Plt Count 134 MPV 10.1 Neut # (Auto) 4.1 Lymph # (Auto) 0.6 L [place] # (Auto) 0.3 Eos # (Auto) 0.0 Baso # (Auto) 0.0 Absolute Nucleated RBC 0.00 Nucleated RBC % 0.0 PT 11.9 INR 1.1 Sodium 140 Potassium 3.8 Chloride 105 Carbon Dioxide 28 Anion Gap 7.0 BUN 18 Creatinine 0.8 Estimated GFR (MDRD) 93 Glucose 125 H Lactic Acid Calcium 9.1 Total Bilirubin 0.7 AST 17 ALT 15 Alkaline Phosphatase 89 Total Creatine Kinase 101 Total Protein 6.0 L Albumin 3.9 Globulin 2.1 Albumin/Globulin Ratio 1.9 Lipase 13 Urine Color Urine Clarity Urine pH Ur Specific [place] Urine Protein Urine Glucose (UA) Urine Ketones Urine Occult Blood Urine Nitrite Urine Bilirubin Urine Urobilinogen Ur Leukocyte Esterase Ur Microscopic Review Urine Culture Comments Urine Opiates Screen Ur Buprenorphine Scrn Ur Oxycodone Screen Urine Methadone Screen Ur Barbiturates Screen Ur Tricyclics Screen Ur Phencyclidine Scrn Ur Amphetamine Screen U Methamphetamines Scrn U Benzodiazepines Scrn Urine Cocaine Screen U Cannabinoids Screen Ur Drug Screen Comment Ethyl Alcohol < 10.0 06/12/24 06/12/24 14:28 14:42 WBC RBC Hgb Hct MCV MCH MCHC RDW Plt Count MPV Neut # (Auto) Lymph # (Auto) [place] # (Auto) Eos # (Auto) Baso # (Auto) Absolute Nucleated RBC Nucleated RBC % PT INR Sodium Potassium Chloride Carbon Dioxide Anion Gap BUN Creatinine Estimated GFR (MDRD) Glucose Lactic Acid 1.8 Calcium Total Bilirubin AST ALT Alkaline Phosphatase Total Creatine Kinase Total Protein Albumin Globulin Albumin/Globulin Ratio Lipase Urine Color YELLOW Urine Clarity CLEAR Urine pH 8.5 H Ur Specific [place] 1.015 Urine Protein TRACE Urine Glucose (UA) NEGATIVE Urine Ketones NEGATIVE Urine Occult Blood NEGATIVE Urine Nitrite NEGATIVE Urine Bilirubin NEGATIVE Urine Urobilinogen 0.2 (NORMAL) Ur Leukocyte Esterase NEGATIVE Ur Microscopic Review NOT INDICATED Urine Culture Comments NOT INDICATED Urine Opiates Screen NEGATIVE Ur Buprenorphine Scrn NEGATIVE Ur Oxycodone Screen NEGATIVE Urine Methadone Screen NEGATIVE Ur Barbiturates Screen NEGATIVE Ur Tricyclics Screen NEGATIVE Ur Phencyclidine Scrn NEGATIVE Ur Amphetamine Screen NEGATIVE U Methamphetamines Scrn NEGATIVE U Benzodiazepines Scrn NEGATIVE Urine Cocaine Screen NEGATIVE U Cannabinoids Screen NEGATIVE Ur Drug Screen Comment CUTOFF CONC BELOW: Ethyl Alcohol PD Medical Decision Making - ED course Complexity details: reviewed old records, reviewed results, re-evaluated patient, considered differential, d/w patient ED course: 78-year-old male presents to the emergency department after syncope and collapse. Afebrile, he medically stable and arrival to the emergency department. Has a slight scalp abrasion on exam. This will not require primary repair and will need to heal by secondary intention. His EKG demonstrates a first-degree heart block but no indications acute cardiac ischemia or dysrhythmia. His labs are reassuring. A CT of his head, C-spine, chest abdomen pelvis demonstrate incidental findings including sclerotic lesions from the patient's known metastatic prostate cancer, findings of asbestos exposure to which she is aware. While there is no indication of cardiogenic syncope his history is highly concerning for this given that there was no prodrome as would be expected with a vasovagal event. He does report that he had 1 similar episode of syncope approximately 5 years ago and shortly thereafter needed valvular replacement. Echocardiogram is not available at this facility at this time. He is offered hospitalization including hospitalization at this facility versus boarding versus transfer to another facility that has echo cardiography available however he declines this. He states that he wishes to follow-up with his outpatient resources. He is encouraged to do so and return to the emergency department immediately for new or worsening symptoms. He verbalizes the potential for major cardiac event, cardiac dysrhythmia, cardiac arrest, missed, delayed or loss of opportunity to treat. Departure - Departure Disposition: 01 Home, Self Care Clinical Impression: Syncope and collapse, Metastatic adenocarcinoma to prostate, Asbestos exposure Scalp abrasion Qualifiers: Encounter type: initial encounter Qualified Code(s): S00.01XA - Abrasion of scalp, initial encounter Instructions: ED Fainting Unkn Cause Prescriptions: Bacitracin Zinc Oint 1 applic TOP BID #1 each HYDROcod/ACETAM 5/325 [[place] 5/325] 1 - 2 ea PO Q6H PRN #14 tablet PRN Reason: Pain Comments: Thank you for allowing us to care for you today at [facility]. Today in the emergency department you were evaluated for any possible dangerous or life-threatening medical emergency. Overall your tests were somewhat reassuring. There is no indication injury to heart muscle, severe electrolyte abnormality and your EKG is unchanged from previous. Your CT scan did shows the findings consistent with your known metastatic prostate cancer as well as your known childhood exposure to asbestos. There were no fractures or other dangerous traumatic injuries identified. The abrasion that you have on your scalp will benefit from topical antibiotic ointment twice daily while it heals. I know we discussed hospitalization and/or transfer to higher level of care as needed which you have declined. While your testing here in the emergency department is reassuring I do need you to understand that there are many reasons why people can have episodes of syncope like the one you had today. Some of them can be quite serious including cardiac dysrhythmia. Specifically as we discussed I have some concern that you could have had an episode of what is known as cardiogenic syncope. That is passing out that happens because your heart went into an irregular rhythm. You would benefit from having some ongoing testing and evaluation such as an echocardiogram performed. It is important that you follow-up with your outpatient resources as soon as possible concerning your ER evaluation. I have written a prescription for medication you can take for pain control as well as a topical antibiotic ointment to use on your scalp abrasion. Please use these as directed. If it anytime you have new or worsening symptoms please not hesitate to return. Forms: PCP List
[2024-06-12 14:36] LABS: BASOPHILS % (AUTO) 0.6 %; EOSINOPHILS % (AUTO) 0.4 %; HGB - HEMOGLOBIN 12.7 g/dL (14.0-18.0); LYMPHOCYTES # (AUTO) 0.6 10^3/uL (1.5-3.5); LYMPHOCYTES % (AUTO) 11.4 %; MEAN CORPUSCULAR HEMOGLOBIN 32.5 pg (27.0-31.0); MEAN CORPUSCULAR HGB CONC 33.4 g/dL (32.0-36.0); MEAN CORPUSCULAR VOLUME 97.2 fL (80.0-94.0); MEAN PLATELET VOLUME 10.1 fL (7.4-11.4); MONOCYTES # (AUTO) 0.3 10^3/uL (0.0-1.0); MONOCYTES % (AUTO) 5.9 %; NEUTROPHILS # (AUTO) 4.1 10^3/uL (1.5-6.6); NEUTROPHILS % (AUTO) 81.1 %; PLT - PLATELET COUNT 134 10^3/uL (130-450); RED BLOOD COUNT 3.91 10^6/uL (4.70-6.10); RED CELL DISTRIBUTION WIDTH 12.8 % (12.0-15.0); WHITE BLOOD COUNT 5.1 x10^3/uL (4.8-10.8)
[2024-06-12 14:43] LABS: INR 1.1 (0.8-1.2); PT - PROTHROMBIN TIME 11.9 secs (9.9-12.6)
[2024-06-12 14:47] LABS: ALBUMIN 3.9 g/dL (3.2-5.5); ALBUMIN/GLOBULIN RATIO 1.9 (1.0-2.2); ALKALINE PHOSPHATASE 89 IU/L (42-121); ALT ALANINE AMINOTRANSFERASE 15 IU/L (10-60); AST ASPARTATE AMINOTRANSFERASE 17 IU/L (10-42); BILIRUBIN,TOTAL 0.7 mg/dL (0.2-1.0); BUN - BLOOD UREA NITROGEN 18 mg/dL (6-20); CALCIUM 9.1 mg/dL (8.5-10.3); CARBON DIOXIDE - CO2 28 mmol/L (21-32); CHLORIDE 105 mmol/L (101-111); CK- CREATINE KINASE 101 IU/L (30-223); CREATININE 0.8 mg/dL (0.6-1.3); ETOH - ETHANOL < 10.0 mg/dL; GFR - MDRD 93 (>89); GLUCOSE 125 mg/dL (74-104); LIPASE 13 U/L (11-82); POTASSIUM 3.8 mmol/L (3.5-4.5); SODIUM 140 mmol/L (135-145)
[2024-06-12 14:48] LABS: BILIRUBIN,URINE NEGATIVE (NEGATIVE); GLUCOSE, URINE (UA) NEGATIVE (NEGATIVE); KETONES,URINE (UA) NEGATIVE (NEGATIVE); LEUKOCYTE ESTERASE, URINE NEGATIVE (NEGATIVE); NITRITE,URINE NEGATIVE (NEGATIVE); OCCULT BLOOD,URINE NEGATIVE (NEGATIVE); PH,URINE 8.5 PH (5.0-7.5); PROTEIN,URINE TRACE mg/dL (NEGATIVE); UROBILINOGEN,URINE 0.2 (NORMAL) E.U./dL (NORMAL)
[2024-06-12 14:51] LABS: CLARITY,URINE CLEAR (CLEAR)
[2024-06-12 15:16] LABS: AMPHETAMINE SCREEN,URINE NEGATIVE (NEGATIVE); BARBITURATE SCREEN,UR NEGATIVE (NEGATIVE); BENZODIAZEPINES SCREEN, URINE NEGATIVE (NEGATIVE); BUPRENORPHINE SCREEN, URINE NEGATIVE (NEGATIVE); COCAINE SCREEN URINE NEGATIVE (NEGATIVE); METHADONE SCREEN, URINE NEGATIVE (NEGATIVE); METHAMPHETAMINES SCREEN, URINE NEGATIVE (NEGATIVE); OPIATE SCREEN, URINE NEGATIVE (NEGATIVE); OXYCODONE SCREEN, URINE NEGATIVE (NEGATIVE); THC CANNABINOID SCREEN, URINE NEGATIVE (NEGATIVE); TRICYCLIC ANTIDEPRESSANT,URINE NEGATIVE (NEGATIVE)
[2024-06-12] MEDS ORDERED: iohexoL-300 100 ML VIAL ONE (15:18)
[2024-06-12] MEDS: fentaNYL 100 MCG/2 ML VIAL IVP STA (15:27)
--- NOTE | 2024-06-12 16:37 | CT Report ---
PROCEDURE: Head WO INDICATIONS: Fall TECHNIQUE: Noncontrast 4.5 mm thick angled axial sections acquired from the foramen magnum to the vertex. For r adiation dose reduction, the following was used: automated exposure control, adjustment of mA and/or kV according to patient size. COMPARISON: None. FINDINGS: Image quality: Excellent. CSF spaces: Basal cisterns are patent. No extra-axial fluid collections. Ventricles are normal in size and shape. Brain: No midline shift. No intracranial masses or hemorrhage. Choi-white matter interface is norm al. Intracranial carotid calcifications. Age-related volume loss and small vessel ischemic change. Skull and face: Calvarium and visualized facial bones are intact, without suspicious lesions. Sinuses: Visualized sinuses and mastoids are clear. IMPRESSION: No acute intracranial pathology. Reviewed by: Siva Stevens MD on 06/12/2024 4:36 PM PDT Approved by: Siva Stevens MD on 06/12/2024 4:36 PM PDT Station ID: [id number]
--- NOTE | 2024-06-12 16:40 | CT Report ---
PROCEDURE: Cervical Spine WO INDICATIONS: Fall TECHNIQUE: Noncontrast 3 mm thick sections acquired from the skull base to the T4 level. Sagittal and coronal r eformats were then constructed. For radiation dose reduction, the following was used: automated exp osure control, adjustment of mA and/or kV according to patient size. COMPARISON: None. FINDINGS: Image quality: Excellent. Bones: No fractures or dislocations. Visualized superior ribs are intact. Cervical spondylitic paul nge. Findings include a degree of canal stenosis and severe right foraminal stenosis at C5-C6. There is left greater than right facet arthropathy. Soft tissues: Prevertebral soft tissues are normal in thickness. No paravertebral hematomas. No ap ical pneumothoraces. IMPRESSION: 1. No acute cervical fracture or dislocation. 2. Cervical spondylosis. Reviewed by: Siva Stevens MD on 06/12/2024 4:38 PM PDT Approved by: Siva Stevens MD on 06/12/2024 4:38 PM PDT Station ID: [id number]
--- NOTE | 2024-06-12 16:46 | CT Report ---
PROCEDURE: Abdomen/Pelvis W INDICATIONS: fall CONTRAST: OMNI, 100 TECHNIQUE: After the administration of intravenous contrast, a CT scan of the abdomen and pelvis was performed. Images were recorded and evaluated at appropriate window settings. Reformats: coronal and sagittal. F or radiation dose reduction, the following was used: automated exposure control, adjustment of mA and /or kV according to patient size. COMPARISON: 05/28/2022. FINDINGS: Image quality: Diagnostic. Lower chest: Midline sternotomy and aortic valve. Severe coronary artery calcifications. Heart size i s within normal limits. Extreme lung bases are clear. There are calcified pleural plaques present.. Liver: No solid mass. Gallbladder: No radiopaque stones or wall thickening. Biliary tree: No intrahepatic or extrahepatic dilation, accounting for age. Spleen: No splenomegaly. Benign splenic calcification. Pancreas: No pancreatic ductal dilation. Adrenals: No adrenal nodule. Kidneys and ureters: No hydronephrosis. No renal cystic lesion which requires follow up. No solid mas s. Stomach, bowel and peritoneum: No gastric or small bowel dilation. No abnormal wall thickening. No pa thologic free fluid. Lymph nodes: No central or retroperitoneal adenopathy. Vessels: No infrarenal aortic aneurysm. Patent portal vein. PELVIS Reproductive organs: Prostate appears to likely be absent.. Bladder: No abnormal wall thickening, accounting for underdistention. Pelvic lymph nodes: No pelvic adenopathy by size criteria. Bones: Development of a sclerotic metastatic lesion involving the right posterior vertebral body and pedicle of L4, as well as a small right pedicle sclerotic focus involving L1. Other: No significant ventral or inguinal hernia. IMPRESSION: 1. No significant sequelae of acute trauma in the abdomen and pelvis. 2. Findings suggest remote prostatectomy. 3. Development of sclerotic bony metastatic disease. 4. Findings consistent with remote asbestos exposure. Reviewed by: Siva Stevens MD on 06/12/2024 4:45 PM PDT Approved by: Siva Stevens MD on 06/12/2024 4:45 PM PDT Station ID: [id number]
--- NOTE | 2024-06-12 16:53 | CT Report ---
PROCEDURE: Chest W INDICATIONS: Fall CONTRAST: OMNI, 100 TECHNIQUE: After the administration of intravenous contrast, a CT scan of the chest was performed. Images were recorded and evaluated at appropriate window settings. Reformats: axial MIP of the chest, coronal and sagittal. For radiation dose reduction, the following was used: automated exposure control, adjustme nt of mA and/or kV according to patient size. COMPARISON: CT chest dated 05/28/2022, CT abdomen and pelvis from today. FINDINGS: Image quality: Diagnostic. Chest wall and lower neck: No thyroid nodule which requires sonographic follow up. No breast mass. No axillary or supraclavicular adenopathy by size. Lungs and pleura: No consolidation. Extensive calcified pleural plaques are consistent with remote as bestos exposure.. No pleural effusions. No pneumothorax. No suspicious pulmonary nodules which requi re follow up. Mediastinum: Remote CABG and valve. Coronary artery calcifications. Heart size is normal. No pericard ial effusion. No large vessel abnormality. No mediastinal adenopathy by size criteria. Bones: Interval development of a small sclerotic right L1 posterior vertebral body/anterior pedicle m etastatic lesion. There are multiple compression fractures noted in the thoracic region, including T4 , T5, T6, T7, T8, T9, and T10. The T4 compression has occurred since the previous study. COMPRESSIONS appear to likely be chronic.. Upper Abdomen: Unremarkable. IMPRESSION: 1. No significant sequelae of acute trauma in the chest. 2. 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 3. Development of a small sclerotic metastatic lesion involving the L1 vertebral body. 4. 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
[2024-06-12 16:54] VITALS: O2SAT 98
[2024-06-12] MEDS: iohexoL-300 100 ML VIAL IVP ONE (17:53)
[2024-06-12 17:58] VITALS: BP 183/66
== END 2024-06-12 17:50 | disposition home or self-care (01) ==
LOC: ED 13:20
DX: S00.01XA Abrasion of scalp, initial encounter (principal); R55 Syncope and collapse; W18.30XA Fall on same level, unspecified, initial encounter; Y92.008 Other place in unspecified non-institutional (private) residence as the place of occurrence of the external cause; C79.82 Secondary malignant neoplasm of genital organs; Z77.090 Contact with and (suspected) exposure to asbestos; I10 Essential (primary) hypertension; E78.00 Pure hypercholesterolemia, unspecified; Z79.899 Other long term (current) drug therapy
CPT/HCPCS: 36415; 70450; 71260; 72125; 74177; 80053; 80306; 81003; 82550; 83605; 83690; 85025; 85610; 93005; 96374; 99284; 99285; G0480; Q9967; 81001; 82077; 87086

== ENCOUNTER 2025-09-02 04:22 | Observation (INO) ==
--- NOTE | 2025-09-02 04:37 | ED Physician Documentation ---
History of Present Illness Stated complaint Stated Complaint: SYNCOPE Chief complaint Chief Complaint: Neuro History obtained from History obtained from: Patient Additonal information Additional information: 79yM with pmh seizure disorder and recurrent syncope p/w possible syncopal episode tonight. ems found patient on floor of the bathroom. lives alone at home with . normally ambulatory independently. history limited by patient confusion. Meds/Allgy Home Medications Ambulatory Orders Medication Instructions Recorded Confirmed aspirin 81 mg tablet,delayed 81 mg PO DAILY 11/07/24 0 11/07/24 release ivermectin 3 mg tablet 15 mg PO Q7D 11/07/24 levetiracetam 500 mg tablet 500 mg PO BID #60 tabs 05/24 (Keppra) Allergies Allergies Allergy/AdvReac Type Severity Reaction Status Date / Time No Known Drug Allergies Allergy Verified 12/21/24 10:50 PFSH Active Problems All Active Problems (Updated 09/02/25 @ 04:55 by Gilda Galdamez MD) Head injury (Acute) Fall (Acute) Avulsion of skin (Acute) Medical History Medical History (Updated 09/02/25 @ 04:55 by Gilda Galdamez MD) Prostate cancer Surgical History Surgical History (Updated 11/07/24 @ 10:51 by Reza Lopez RN) Hx of prostatectomy Aortic valve replaced Social History Social History (Updated 11/07/24 @ 10:51 by Reza Lopez RN) Do you dip or chew tobacco?: No Do you vape?: No Living arrangement: At home Living Condition: With spouse/s.o. Level: Independent Do you feel safe in your home environment?: Yes History of physical, verbal, emotional, or financial abuse?: No ETOH Use: None Substance Use: denies use Exam Exam Vital Signs: Vital Signs x48h Temp Pulse Resp BP Pulse Ox 09/02/25 04:35 36.9 C 87 20 198/93 H 98 Constitutional bloody abrasion to R forehead. unkempt appearing HENMT oropharynx normal Eyes PERRL and EOMs intact bilaterally Neck/C-Spine visual inspection normal c collar in place on arrival Chest inspection of chest normal Respiratory breath sounds equal bilaterally, normal respiratory effort and clear to auscultation bilaterally Cardiovascular normal heart rate noted and regular rhythm noted Gastrointestinal abdomen normal to inspection, abdomen soft to palpation and nontender to palpation Genitourinary soft penile clamp in place. this was removed with resultant leakage of urine from the penis Extremities L forearm abrasions/avulsed skin Neurology GCS 14 ([id number]) Psychiatry not oriented to place or time. Skin skin color normal Results Vitals Vitals: Vital Signs - 24 hr 09/02/25 04:35 Temperature 36.9 C Pulse Rate 87 Respiratory Rate 20 Blood Pressure 198/93 H O2 Saturation 98 O2 Source Room air Pain Intensity 6 Oxygen O2 Source Room air Labs Labs: Laboratory Tests 09/02/25 04:38 WBC 9.4 RBC 3.99 L Hgb 13.3 L Hct 39.1 L MCV 98.0 H MCH 33.3 H MCHC 34.0 RDW 12.0 Plt Count 148 MPV 9.6 Neut # (Auto) 8.1 H Lymph # (Auto) 0.4 L [place] # (Auto) 0.7 Eos # (Auto) 0.0 Baso # (Auto) 0.0 Absolute Nucleated RBC 0.00 Nucleated RBC % 0.0 Sodium 132 L Potassium 3.8 Chloride 97 L Carbon Dioxide 25 Anion Gap 10.0 BUN 12 Creatinine 0.8 Estimated GFR (MDRD) 93 Glucose 127 H Calcium 9.3 Total Bilirubin 0.7 AST 21 ALT 18 Alkaline Phosphatase 123 H Total Creatine Kinase 81 Total Protein 6.8 Albumin 4.0 Globulin 2.8 Albumin/Globulin Ratio 1.4 Lipase < 10 L PD Medical Decision Making ED course ED course: 79yM p/w fall in the bathroom, possible syncope vs seizure vs mechanical fall. CT head/c spine / maxillofacial ordered as well as cxr, labwork. no acute traumatic findings on imaging. plan to monitor and board for admission in am. no beds available for admission overnight. plan to endorse to incoming daytime ed md at 7am shift change. Discharge Plan Discharge Condition: Fair Clinical Impression: Avulsion of skin, Fall, Head injury Prescriptions: No Action ivermectin 3 mg tablet 15 mg PO Q7D Patient Comments: Take 5 tablets by mouth today and then repeat for 3 additional weeks. Drink plenty of water throughout the day. aspirin 81 mg tablet,delayed release (DR/EC) 81 mg PO DAILY Patient Comments: TAKE ONE TABLET BY MOUTH ONE TIME DAILY levetiracetam [Keppra] 500 mg tablet 500 mg PO BID Qty: 60 0RF Print Language: Slovenian Stand Alone Forms: PCP List
[2025-09-02 04:42] LABS: HCT - HEMATOCRIT 39.1 % (42.0-52.0); HGB - HEMOGLOBIN 13.3 g/dL (14.0-18.0); MEAN PLATELET VOLUME 9.6 fL (7.4-11.4); NRBC ABSOLUTE COUNT (AUTO) 0.00 x10^3/uL; NUCLEATED RED BLOOD CELLS AUTO 0.0 /100WBC; PLT - PLATELET COUNT 148 10^3/uL (130-450); RED CELL DISTRIBUTION WIDTH 12.0 % (12.0-15.0)
[2025-09-02 05:00] LABS: ALT ALANINE AMINOTRANSFERASE 18 IU/L (10-60); AST ASPARTATE AMINOTRANSFERASE 21 IU/L (10-42); BUN - BLOOD UREA NITROGEN 12 mg/dL (6-20); CARBON DIOXIDE - CO2 25 mmol/L (21-32); CREATININE 0.8 mg/dL (0.6-1.3); GFR - MDRD 93 (>89)
[2025-09-02] MEDS ORDERED: TETANUS/DIPHTHERIA/PERTUSSIS 0.5 ML SYRINGE IM ONE (06:33)
[2025-09-02] MEDS: TETANUS/DIPHTHERIA/PERTUSSIS 0.5 ML SYRINGE IM ONE (06:36)
--- NOTE | 2025-09-02 07:41 | CT Report ---
PROCEDURE: CT Cervical Spine WO INDICATIONS: fall HT TECHNIQUE: Noncontrast images acquired from the skull base to the T4 level. Sagittal and coronal reformats were then constructed. For radiation dose reduction, the following was used: automated exposure control, adjustment of mA and/or kV according to patient size. COMPARISON: 12/21/2024 FINDINGS: Image quality: Excellent. Bones: No fractures or dislocations. Multilevel spondylitic change with multilevel facet arthropathy and uncovertebral joint hypertrophy. Visualized superior ribs are intact. Soft tissues: Prevertebral soft tissues are normal in thickness. No paravertebral hematomas. No apical pneumothoraxes. IMPRESSION: No acute, displaced fracture or traumatic subluxation. Cervical spondylosis. Findings are concordant with preliminary interpretation provided by [facility]. Reviewed by: Siva Stevens MD on 09/02/2025 7:38 AM PST Approved by: Siva Stevens MD on 09/02/2025 7:38 AM PST Station ID: [id number]
--- NOTE | 2025-09-02 07:43 | CT Report ---
PROCEDURE: CT Head WO INDICATIONS: syncope in bathroom +HT TECHNIQUE: CT of the head was performed, without intravenous contrast. Reformats: Coronal and sagittal. For radiation dose reduction, the following was used: automated exposure control, adjustment of mA and/or kV according to patient size. COMPARISON: 12/21/2024 FINDINGS: Image quality: Diagnostic. CSF spaces: Basal cisterns are patent. No extra-axial fluid collections. Ventricles are normal in size and shape. Brain: No midline shift. No intracranial mass effect or hemorrhage. Choi- white matter interface is normal. Age appropriate volume loss and periventricular white matter hypoattenuation, likely chronic ischemic change. Skull and face: Calvarium and visualized facial bones are intact, without suspicious lesions. Sinuses: Visualized sinuses and mastoids are clear. IMPRESSION: No acute intracranial pathology. Findings are concordant with preliminary interpretation provided by [facility]. Reviewed by: Siva Stevens MD on 09/02/2025 7:40 AM PST Approved by: Siva Stevens MD on 09/02/2025 7:40 AM PST Station ID: [id number]
--- NOTE | 2025-09-02 07:45 | CT Report ---
PROCEDURE: CT Maxillofacial WO INDICATIONS: fall +head strike TECHNIQUE: CT of the face was performed, without intravenous contrast. Reformats: Coronal and sagittal. For radiation dose reduction, the following was used: automated exposure control, adjustment of mA and/or kV according to patient size. COMPARISON: None. FINDINGS: Image quality: Diagnostic. There is some patient motion artifact. Soft tissues: No edema, masses, or fluid collections. No enlarged lymph nodes. Vascular: Visualized vascular structures appear patent throughout. Bony vascular foramina and canals appear normal. Bones: Facial bones appear intact, without fractures, erosions, or destruction. Visualized portions of the skull base and auditory canals also appear normal. Sinuses: Paranasal sinuses are aerated without fluid levels, mucosal thickening, or mucoceles. Mastoid air cells are aerated. IMPRESSION: No acute displaced facial bone fracture or mandibular fracture. Findings are concordant with preliminary interpretation provided by [facility]. Reviewed by: Siva Stevens MD on 09/02/2025 7:42 AM PST Approved by: Siva Stevens MD on 09/02/2025 7:42 AM PST Station ID: [id number]
--- NOTE | 2025-09-02 08:43 | ED Physician Documentation ---
ED Addendum Addendum Addendum: Patient was handed off to me at [address] Galdamez. Patient ultimately was admitted to the floor here at [facility] due to altered mental status, as well as possible seizure versus syncopal episode that occurred at home. Fall that was unwitnessed. Trauma scans were unremarkable and did not show signs of acute injury. Discharge Plan Discharge Patient Disposition: 64 [facility] DC/Xfer Condition: Fair Clinical Impression: Avulsion of skin, Fall, Head injury Interventions: ED Transfer Assessment Last Done: 09/02/25 09:33 Vitals documented within 30 minutes of discharge?: Yes
--- NOTE | 2025-09-02 09:08 | XRAY Report ---
PROCEDURE: XR Chest 1V INDICATIONS: Chest Pain TECHNIQUE: One view of the chest was acquired. COMPARISON: 05/28/2022 FINDINGS: Surgical changes and devices: Midline sternotomy. Lungs and pleura: Question mild interstitial pulmonary edema. Numerous calcified pleural plaques. Mediastinum: Mediastinal contours appear normal. Heart size is normal. Bones and chest wall: No suspicious bony lesions. Overlying soft tissues appear unremarkable. IMPRESSION: Question mild interstitial pulmonary edema. 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 Findings are concordant with preliminary interpretation provided by [facility]. Reviewed by: Siva Stevens MD on 09/02/2025 9:04 AM [facility] Approved by: Siva Stevens MD on 09/02/2025 9:04 AM PST Station ID: [id number]
[2025-09-02] MEDS ORDERED: ONDANSETRON ODT 4 MG TABLET TL PRN (09:34)
[2025-09-02] MEDS ORDERED: ONDANSETRON 4 MG/2 ML VIAL IVP PRN (09:34)
--- NOTE | 2025-09-02 11:35 | HISTORY & PHYSICAL EXAMINATION ---
Chief Complaint Chief Complaint Chief Complaint: Altered mental status History of Present Illness Admitted From Admitted From:: Home History Obtained From Records Reviewed: EMR History obtained from: Patient's at bedside Exam Limitations: Post-ictal History of Present Illness HPI Comment/Other: Patient is a 79-year-old male with a history of possible seizure disorder, dementia, aortic stenosis s/p TAVR who presents after a witnessed seizure and fall at home. History is taken by the at bedside as patient is still very sleepy and is unable to provide an adequate history. Per the , last night, she heard a noise coming from the patient's bathroom. She then found him on the ground, shaking, both his upper extremities and his lower extremities in a rhythmic fashion. Per the , this has happened about 8-10 times in the past couple years. She states it is always preceded by some mild lip twitching and then he passes out, and has these generalized tonicclonic movements. Previous EMR records indicate that he was started on Keppra in October 2024. Per the , it was not doing anything, so she stopped it on her own. He has not seen a neurologist, nor has he completed an EEG in the outpatient setting. These seizure activities have been going on for the past couple years. When patient is seen, he is responsive to verbal stimuli. He says a few short phrases, and is moving all limbs spontaneously, but is unable to answer yes or no questions or follow commands at this time. This is improved from earlier, when he was just waking up with sternal rub. In the ER, patient was hypertensive to 198/93. His heart rate was 87, his respiratory rate was 20, and he was saturating 98% in room air. Lab work was reviewedhe has a normal white count, hemoglobin is around his baseline of 13.3. BMP shows a mildly low sodium at 132. Drug screen, urinalysis are ordered, pending. Chest x-ray shows questionable mild pulmonary edema, facial bone CT was negative, head CT was negative and cervical spine CT was negative for any acute fractures or subluxations. He was admitted for altered mental status. Past medical history includes dementia, which has been worsening over the last 4 years. He is able to still complete most of his ADLs, but is having trouble with his memory. Other medical history includes aortic stenosis with a aortic valve replacement, hypertension, prostate cancer with possible metastasis to bone. Medications include amlodipine, aspirin. He was prescribed Keppra, but has not been taking it. He has no known drug allergies. Surgical history includes the TAVR. He drinks alcohol rarely, was never a smoker, no recreational drug use. . Lives with his . Ambulates without assistance. Goals of care were discussed with patient's and daughter at bedside. He is DO NOT RESUSCITATE, but they would like full medical management. They will like him to be more awake when they fill the POLST together. Meds/Allgy Home Medications Ambulatory Orders Medication Instructions Recorded Confirmed aspirin 81 mg tablet,delayed 81 mg PO DAILY 11/07/24 1 11/03/24 release abiraterone 500 mg tablet 1,000 mg PO DAILY 09/02/25 1 11/03/24 amlodipine 5 mg tablet 5 mg PO DAILY 09/02/2509/02 potassium chloride 10 mEq 10 meq PO BID 09/02/2509/02 tablet,extended release prednisone 5 mg tablet 5 mg PO DAILY 09/02/2509/02 Allergies Allergies Allergy/AdvReac Type Severity Reaction Status Date / Time No Known Drug Allergies Allergy Verified 12/21/24 10:50 PFSH Active Problems All Active Problems (Updated 09/02/25 @ 13:10 by Hilda Ruffin MD) Dementia (Chronic) Hypertension (Chronic) Seizure disorder (Acute) Post-ictal confusion (Acute) Acute metabolic encephalopathy (Acute) Head injury (Acute) Fall (Acute) Avulsion of skin (Acute) Medical History Medical History Prostate cancer Surgical History Surgical History Hx of prostatectomy Aortic valve replaced Social History Social History Smoking Status: Unknown if ever smoked Second hand tobacco smoke exposure: No Do you dip or chew tobacco?: No Do you vape?: No Patient requests smoking cessation consult: No Initiate information on smoking cessation: No Living arrangement: At home Living Condition: With spouse/s.o. Has a Durable Power of Guest Relation Officer for Health Care?: No DPOA on file?: No Has Health Care Directive?: No Health Care Directive on file?: No Physical Activity: Walking Level: Independent Home Mobility Equipment: Cane Do you feel safe in your home environment?: Yes History of physical, verbal, emotional, or financial abuse?: No ETOH Use: None Substance Use: denies use POLST Patient has POLST: No Review of Systems Unable to obtain meaningful review of system as patient is lethargic, and sleepy. Status of ROS: unobtainable due to medical condition and unobtainable due to mental status Prior Level of Functionality: Independent of ADLs, but with slowly progressive dementia. Exam Exam Vital Signs: Vital Signs x48h Temp Pulse Pulse Resp BP BP Pulse Ox 09/02/25 15:49 97.9 F 74 20 148/66 H 95 09/02/25 09:58 97.5 F L 77 22 153/79 H 96 09/02/25 09:15 66 18 201/88 H 98 09/02/25 08:30 83 16 204/87 H 100 Constitutional normal general appearance, no apparent distress, average body habitus and no limitations Patient sleeping comfortably. Responsive to verbal stimuli. Diffuse ecchymosis over right side of face with small abrasion on cheek. Ecchymosis noted all over right arm. HENMT head/scalp traumatic Eyes PERRL, EOMs intact bilaterally and conjunctivae normal Neck/C-Spine visual inspection normal, trachea midline and cervical spine nontender Chest inspection of chest normal Respiratory breath sounds equal bilaterally, normal respiratory effort, clear to auscultation bilaterally, no wheezes, no rales and no retractions Cardiovascular normal heart rate noted, regular rhythm noted, no gallop, no rub and no murmur Gastrointestinal abdomen normal to inspection, abdomen soft to palpation, nontender to palpation and normoactive bowel sounds Genitourinary no CVA tenderness and bladder normal to palpation Back/Pelvis spine normal to inspection, no thoracic spine tenderness and no lumbar spine tenderness Neurology no movement abnormality noted and no focal motor deficit noted Unable to meaningfully participate in strength testing. Is moving all limbs spontaneously. Psychiatry mental status abnormal (somnolent), orientation abnormal (disoriented to person), (disoriented to place) and (disoriented to time) and uncooperative Skin no rash, no lesions and ecchymosis noted (Ecchymosis noted on bilateral arms, right worse than left. ) Conclusion/Plan Problem List (1) Acute metabolic encephalopathy: (2) Post-ictal confusion: (3) Seizure disorder: Plan: The following plan is for the above three assessments: Patient presented after witnessed tonic-clonic seizure at home. Currently post-ictal, improving slowly. Was prescribed Keppra in 11/24 but has not been taking it for months. Keppra level ordered. Loaded with 1g Keppra. Continue 500mg BID. Should follow up with neurology in the outpatient setting, and get EEG completed as well. already has referral in place. CT head negative. MRI brain completed 11/24 after similar episode showed no bleeds, masses, metastates or acute ischemic changes. MUDS, TSH ordered, pending. (4) Prostate cancer: Plan: Continue abiraterone and prednisone. Evidence of metastasis to bone. 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 Follows with Dr. Francis, oncology, and they have an appointment with him by Dr. Torres to discuss next steps. (5) Hypertension: Plan: Continue amlodipine. Qualifiers: Hypertension type: unspecified Qualified Code(s): I10 - Essential (primary) hypertension (6) Dementia: Plan: Noted some progressive memory loss over the last 4 years. Still largely dependent for IADLs. Dependent on for things like cooking and cleaning. Qualifiers: Dementia behavioral or psychological symptom: unspecified whether behavioral, psychotic, or mood disturbance or anxiety Dementia severity: u nspecified severity Dementia type: unspecified type Qualified Code(s): F03.90 - Unspecified dementia, unspecified severity, without behavioral disturbance, psychotic disturbance, mood disturbance, and anxiety Lab Results Lab results reviewed: Yes 09/02/25 04:38 09/02/25 04:38 Diagnostic Imaging Results Diagnostic Imaging Results: positive Final report reviewed Core Measures Anticipated LOS I expect patient to be DC'd or transferred within 96 hours.: Yes Issues Hospital Issues and Management Plan: None anticipated. DVT/VTE - Prophylaxis VTE/DVT Device ordered at admit?: No VTE/DVT Prophylaxis med ordered at admit?: Yes Stroke - Rehab Assessment Rehab services assessment to be ordered?: No Not Ordered - Medical Reason: Not indicated AMI - Statin at Admit Aspirin Prescribed on Admit: No Not Ordered - Medical Reason: Not indicated
[2025-09-02] MEDS: SODIUM CHLORIDE FLUSH 0.9% 10 ML SYRINGE IVP PRN (12:20)
--- NOTE | 2025-09-02 12:58 | PHARMACY PROGRESS NOTE ---
Best Possible Medication History Admit Date and Time: 09/02/25 0903 Home Medications Medication Instructions Recorded Confirmed Type aspirin 81 mg tablet,delayed 81 mg PO DAILY 11/07/24 1 11/03/24 History release abiraterone 500 mg tablet 1,000 mg PO DAILY 09/02/25 1 11/03/24 History amlodipine 5 mg tablet 5 mg PO DAILY 09/02/2509/02 History potassium chloride 10 mEq 10 meq PO BID 09/02/2509/02 History tablet,extended release prednisone 5 mg tablet 5 mg PO DAILY 09/02/2509/02 History Processed by: Pharmacy Medications reviewed in ED?: No Medication History completed: Yes Patient Interview: Pt unable to participate Secondary Source(s): Spouse/Significant other, Pharmacy records and Insurance records [facility] Statement: As the person ultimately responsible for medication therapy, providers are able to order a medication from an existing home medication list in [facility] via the "Reconcile Routine" prior to Confirmation of that medication by research support specialist. Such practice is discouraged except when the physician, in their clinical judgment, deems that a medical need exists for a medication without regard to p revious use.
[2025-09-02] MEDS: LACTATED RINGERS 1,000 ML IV SCH (15:54)
[2025-09-02] MEDS: SODIUM CHLORIDE FLUSH 0.9% 10 ML SYRINGE IVP SCH (15:54)
[2025-09-02 17:35] LABS: GLUCOSE, URINE (UA) NEGATIVE (NEGATIVE); KETONES,URINE (UA) NEGATIVE (NEGATIVE); OCCULT BLOOD,URINE NEGATIVE (NEGATIVE)
[2025-09-02 17:49] LABS: COCAINE SCREEN URINE NEGATIVE (NEGATIVE); METHAMPHETAMINES SCREEN, URINE NEGATIVE (NEGATIVE); SQUAMOUS EPITHELIAL CELL,UR RARE Squamous (<= Few); THC CANNABINOID SCREEN, URINE NEGATIVE (NEGATIVE)
[2025-09-02 17:50] LABS: AMPHETAMINE SCREEN,URINE NEGATIVE (NEGATIVE); BARBITURATE SCREEN,UR NEGATIVE (NEGATIVE); BENZODIAZEPINES SCREEN, URINE NEGATIVE (NEGATIVE); BUPRENORPHINE SCREEN, URINE NEGATIVE (NEGATIVE); METHADONE SCREEN, URINE NEGATIVE (NEGATIVE); OPIATE SCREEN, URINE POSITIVE (NEGATIVE)
[2025-09-02] MEDS: POTASSIUM CHLORIDE 10 MEQ CAPSULE PO SCH (19:12)
[2025-09-02] MEDS: ACETAMINOPHEN 1,000 MG/100 ML 1,000 MG/100 ML BAG IV PRN (20:40)
[2025-09-03 06:52] LABS: HCT - HEMATOCRIT 38.0 % (42.0-52.0); HGB - HEMOGLOBIN 12.5 g/dL (14.0-18.0); MEAN PLATELET VOLUME 12.1 fL (7.4-11.4); PLT - PLATELET COUNT 107.0 10^3/uL (130-450); RED CELL DISTRIBUTION WIDTH 12.2 % (12.0-15.0)
[2025-09-03 07:12] LABS: BUN - BLOOD UREA NITROGEN 10.0 mg/dL (6-20); CARBON DIOXIDE - CO2 25.0 mmol/L (21-32); CREATININE 0.7 mg/dL (0.6-1.3); GFR - MDRD 108.0 (>89)
[2025-09-03] MEDS: ENOXAPARIN 40 MG/0.4 ML SYRINGE SUBQ SCH (08:51)
[2025-09-03] MEDS: ASPIRIN EC 81 MG TABLET PO SCH (08:52)
[2025-09-03] MEDS: POTASSIUM CHLORIDE 20 MEQ TABLET PO SCH (08:52)
[2025-09-03] MEDS: ACETAMINOPHEN 325 MG TABLET PO PRN (11:45)
--- NOTE | 2025-09-03 12:21 | PROVIDER PROGRESS NOTE ---
Subjective Subjective Subjective: This morning, patient is awake and conversive. He is on oriented x 3. He does not recall the events that led to his admission. He has minimal pain. Overnight, he had some difficulty with urination, but was able to sit up on the edge of the bed, and urinate on his own. We discussed working with physical therapy today, and the possibility of SNF, and patient and his family are agreeable to this. Current Medications Current Medications Current Medications: Current Medications Generic Name Dose Route Start Last Admin Trade Name Freq PRN Reason Stop Dose Admin Acetaminophen 650 mg 09/02/25 09:34 09/03/25 11:45 Acetaminophen 325 Mg Tablet PO 650 mg Q4HR PRN Administration Pain 1 to 4, or Fever Amlodipine Besylate 5 mg 09/03/25 09:00 09/03/25 08:52 Amlodipine 5 Mg Tablet PO 5 mg DAILY WINNIE Administration Aspirin 81 mg 09/03/25 09:00 09/03/25 08:52 Aspirin Ec 81 Mg Tablet PO 81 mg DAILY WINNIE Administration Enoxaparin Sodium 40 mg 09/03/25 09:00 09/03/25 08:51 Enoxaparin 40 Mg/0.4 Ml Syringe SUBQ 40 mg DAILY WINNIE Administration Lactated Ringer's 1,000 mls @ 75 mls/hr 09/02/25 15:00 09/03/25 05:39 Lr IV 75 mls/hr .[id number] WINNIE Administration Levetiracetam 500 mg 09/03/25 09:00 09/03/25 08:58 Levetiracetam 500 Mg/5 Ml Udc PO 500 mg BID WINNIE Administration Ondansetron HCl 4 mg 09/02/25 09:34 Ondansetron Odt 4 Mg Tablet TL Q6HR PRN Nausea / Vomiting Ondansetron HCl 4 mg 09/02/25 09:34 Ondansetron 4 Mg/2 Ml Vial IVP Q6HR PRN Nausea / Vomiting Abiraterone 500 Mg 2 each 09/03/25 09:00 Tablet PO DAILY WINNIE Polyethylene Glycol 17 gm 09/03/25 12:00 09/03/25 11:45 Polyethylene Glycol 3350 17 Gm Packet PO 17 gm DAILY WINNIE Administration Potassium Chloride 40 meq 09/03/25 08:00 09/03/25 08:52 Potassium Chloride 20 Meq Tablet PO 40 meq DAILYWM WINNIE Administration Prednisone 5 mg 12/05/25 09:00 09/03/25 08:52 Prednisone 5 Mg Tablet PO 5 mg DAILY WINNIE Administration Sodium Chloride 10 ml 09/02/25 09:34 09/02/25 12:20 Sodium Chloride Flush 0.9% 10 Ml Syringe IVP 10 ml PRN PRN Administration NEEDED PER PROVIDER ORDERS Sodium Chloride 10 ml 09/02/25 17:00 09/03/25 09:02 Sodium Chloride Flush 0.9% 10 Ml Syringe IVP Not Given 0100,0900,1700 [facility] Objective Vital Signs/Intake & Output Reviewed Vital Signs: Yes Vital Signs: Vital Signs x48h Temp Pulse Resp BP Pulse Ox 09/03/25 11:50 97.5 F L 80 20 113/63 95 09/03/25 07:41 98.1 F 73 18 148/71 H 95 09/03/25 04:28 97.7 F 75 16 137/71 H 94 Intake & Output: Intake & Output 08/31/25 09/01/25 09/02/25 09/03/25 23:59 23:59 23:59 23:59 Intake Total 100 / 100 1400 / 1400 Output Total 30 / 30 250 / 250 Balance 70 / 70 1150 / 1150 Weight (kg) 66 kg Objective Comments/Other: Constitutional normal general appearance, no apparent distress, average body habitus and no limitations Diffuse ecchymosis over right side of face with small abrasion on cheek. Ecchymosis noted all over right arm. HENMT head/scalp traumatic Eyes PERRL, EOMs intact bilaterally and conjunctivae normal Neck/C-Spine visual inspection normal, trachea midline and cervical spine nontender Chest inspection of chest normal Respiratory breath sounds equal bilaterally, normal respiratory effort, clear to auscultation bilaterally, no wheezes, no rales and no retractions Cardiovascular normal heart rate noted, regular rhythm noted, no gallop, no rub and no murmur Gastrointestinal abdomen normal to inspection, abdomen soft to palpation, nontender to palpation and normoactive bowel sounds Genitourinary no CVA tenderness and bladder normal to palpation Neurology no movement abnormality noted and no focal motor deficit noted Psychiatry alert and oriented x 3, conversing appropriately Skin no rash, no lesions and ecchymosis noted (Ecchymosis noted on bilateral arms, right worse than left. ) Lab Results 09/03/25 06:18 09/03/25 06:18 Other Labs: Lab Results x24hrs 09/03/25 09/02/25 09/02/25 Range/Units 06:18 16:48 16:35 WBC 6.0 (4.8-10.8) x10^3/uL RBC 3.81 L (4.70-6.10) 10^6/uL Hgb 12.5 L (14.0-18.0) g/dL Hct 38.0 L (42.0-52.0) % MCV 99.7 H (80.0-94.0) fL MCH 32.8 H (27.0-31.0) pg MCHC 32.9 (32.0-36.0) g/dL RDW 12.2 (12.0-15.0) % Plt Count 107 L (130-450) 10^3/uL MPV 12.1 H (7.4-11.4) fL Sodium 133 L (135-145) mmol/L Potassium 3.0 L (3.5-4.5) mmol/L Chloride 100 L (101-111) mmol/L Carbon Dioxide 25 (21-32) mmol/L Anion Gap 8.0 (6-13) BUN 10 (6-20) mg/dL Creatinine 0.7 (0.6-1.3) mg/dL Estimated GFR (MDRD) 108 (>89) Glucose 103 (74-104) mg/dL Calcium 8.7 (8.5-10.3) mg/dL Magnesium 2.2 (1.7-2.3) mg/dL Urine Color YELLOW Urine Clarity CLEAR (CLEAR) Urine pH 6.0 (5.0-7.5) PH Ur Specific [place] 1.010 (1.002-1.030) Urine Protein NEGATIVE (NEGATIVE) mg/dL Urine Glucose (UA) NEGATIVE (NEGATIVE) mg/dL Urine Ketones NEGATIVE (NEGATIVE) mg/dL Urine Occult Blood NEGATIVE (NEGATIVE) Urine Nitrite NEGATIVE (NEGATIVE) Urine Bilirubin NEGATIVE (NEGATIVE) Urine Urobilinogen 0.2 (NORMAL) (NORMAL) E.U./dL Ur Leukocyte Esterase NEGATIVE (NEGATIVE) Urine RBC None Seen (0-5) /HPF Urine WBC 0-3 (0-3) /HPF Ur Squamous Epith Cells RARE Squamous (<= Few) Urine Bacteria None Seen (None Seen) /HPF Urine Opiates Screen POSITIVE H (NEGATIVE) Ur Buprenorphine Scrn NEGATIVE (NEGATIVE) Ur Oxycodone Screen NEGATIVE (NEGATIVE) Urine Methadone Screen NEGATIVE (NEGATIVE) Urine Fentanyl Screen Negative (NEGATIVE) Ur Barbiturates Screen NEGATIVE (NEGATIVE) Ur Tricyclics Screen NEGATIVE (NEGATIVE) Ur Phencyclidine Scrn NEGATIVE (NEGATIVE) Ur Amphetamine Screen NEGATIVE (NEGATIVE) U Methamphetamines Scrn NEGATIVE (NEGATIVE) U Benzodiazepines Scrn NEGATIVE (NEGATIVE) Urine Cocaine Screen NEGATIVE (NEGATIVE) U Cannabinoids Screen NEGATIVE (NEGATIVE) Ur Drug Screen Comment CUTOFF CONC BELOW: Assessment/Plan Problem List (1) Acute metabolic encephalopathy: (2) Post-ictal confusion: (3) Seizure disorder: Impression: The following plan is for the above three assessments: Patient presented after witnessed tonic-clonic seizure at home. Was postictal yesterday, is now back at his baseline mental status. Was prescribed Keppra in 11/24 but has not been taking it for months. Keppra level ordered. Loaded with 1g Keppra. Continue 500mg BID. Should follow up with neurology in the outpatient setting, and get EEG completed as well. already has referral in place. CT head negative. MRI brain completed 11/24 after similar episode showed no bleeds, masses, metastases or acute ischemic changes. MUDS positive for opiates (prescribed for metastatic prostate cancer). Patient has been having some progressive weakness at home, as well as unsteady gait, and dizziness. PT evaluation is ordered. Once is completed, patient will be medically cleared for discharge. (4) Right wrist pain: Impression: Patient with right wrist pain after fall, now that he's a little more awake. XR wrist ordered. (5) Prostate cancer: Impression: Continue abiraterone and prednisone. Evidence of metastasis to bone. 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 Follows with Dr. Frnacis, oncology, and they have an appointment with him by Dr. Torres to discuss next steps. (6) Hypertension: Impression: Continue amlodipine. Qualifiers: Hypertension type: unspecified Qualified Code(s): I10 - Essential (primary) hypertension (7) Dementia: Impression: Noted some progressive memory loss over the last 4 years. Still largely dependent for IADLs. Dependent on for things like cooking and cleaning. Qualifiers: Dementia behavioral or psychological symptom: unspecified whether behavioral, psychotic, or mood disturbance or anxiety Dementia severity: u nspecified severity Dementia type: unspecified type Qualified Code(s): F03.90 - Unspecified dementia, unspecified severity, without behavioral disturbance, psychotic disturbance, mood disturbance, and anxiety
--- NOTE | 2025-09-03 15:08 | XRAY Report ---
PROCEDURE: XR Wrist 1-2V RT INDICATIONS: r wrist pain after fall TECHNIQUE: 2 views of the wrist were acquired. COMPARISON: None. FINDINGS: Bones: No fractures or dislocations. Triscaphe joint degenerative change and mild first carpometacarpal joint degenerative change. No suspicious bony lesions. Soft tissues: No suspicious soft tissue calcifications or masses. Extensive small vessel calcifications suggesting longstanding diabetes or hyperparathyroidism. IMPRESSION: No acute bony abnormality. Reviewed by: Siva Stevens MD on 09/03/2025 3:04 PM PST Approved by: Siva Stevens MD on 09/03/2025 3:04 PM PST Station ID: [id number]
[2025-09-03] MEDS: MULTIVITAMIN W/MINERALS TABLET PO SCH (17:09)
--- NOTE | 2025-09-03 17:41 | PT Plan of Care ---
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 Medical History (Updated 09/03/25 @ 13:36 by Hilda Ruffin MD) Cataracts, bilateral Hearing loss DDD (degenerative disc disease), lumbar DDD (degenerative disc disease), cervical Metastasis to bone Chronic back pain Chronic neck pain BPH (benign prostatic hyperplasia) Aortic valve stenosis Skin cancer Hyperlipidemia Cervical spondylosis Prostate cancer Surgical History (Updated 09/03/25 @ 06:52 by Adrianne Wiley, TIFFANY) History of appendectomy Hx of prostatectomy Aortic valve replaced Balance/ Functional Results Sitting Balance Fair Standing Balance Poor Tinetti Composite Score ( 7 Balance + Gait) Tinetti Assessment High Fall Risk Interpretation Assessment Assessment Pt is an 79yo M referred for PT eval s/p fall at home with head contusion and multiple abrasions . Admitted d/t likely seizure resulting in fall and AMS. PMH includes prostate cancer with mets to spine and dementia. Please see medical record for further hx. Cleared for eval by hospitalist . Pt sitting up in bed, and dtr in room, RN present for much of session, sanitary landfill operator present for a portion as well. Despite high level of distraction, pt is cueable and willing to participate. A&Ox1-2, requires modAx1 overall for transfers and ambulation with FWW. Unsteady gait with WBOS, unsafe walker mgmt, limited toe clearance BL and reduced stance L > R. high fall risk per gait pattern and Tinetti score of 7/28 . Given above impairments, pt will benefit from continued skilled PT. When medically clear, PT rec dc to SNF. Goals Improve bed mobility to: Contact Guard Improve supine to sit to: Minimal Assist Improve sit to stand to: Minimal Assist Improve pivot transfer ability Minimal Assist to: Improve sit to supine to: Contact Guard Improve gait ability to: Min A Assistive Device Used: Front Wheeled Walker Improve Sitting Balance to: Good Improve Standing Balance to: Fair PT Plan of Care Frequency 1-2x/day Duration Until discharge Discharge Recommendations Discharge Location Snf Facility DC Equipment Recommended Front wheeled walker Transport Needs at Discharge B.L.S Other BLS d/t fall risk, back pain d/t mets and confusion. may progress to van
[2025-09-04 06:00] LABS: HCT - HEMATOCRIT 35.0 % (42.0-52.0); HGB - HEMOGLOBIN 11.9 g/dL (14.0-18.0); MEAN PLATELET VOLUME 10.0 fL (7.4-11.4); PLT - PLATELET COUNT 143.0 10^3/uL (130-450); RED CELL DISTRIBUTION WIDTH 11.9 % (12.0-15.0)
[2025-09-04 06:21] LABS: BUN - BLOOD UREA NITROGEN 11.0 mg/dL (6-20); CARBON DIOXIDE - CO2 26.0 mmol/L (21-32); CREATININE 0.7 mg/dL (0.6-1.3); GFR - MDRD 108.0 (>89)
--- NOTE | 2025-09-04 07:46 | PROVIDER PROGRESS NOTE ---
Subjective Subjective Subjective: This morning, patient is awake and conversive. He is on oriented x2. He does not recall the events that led to his admission. Today, he complains of some pain in his lower back. His wrist is also swollen on the right side, and he is having some difficulty with motion. Overnight, he had some difficulty with urination, but was able to sit up on the edge of the bed, and urinate on his own. Initial plan was rehab. Patient's has expressed some interest in hospice care. I discussed this further with the , and they are seems to be a little bit of a misunderstanding about what hospice means. I then spoke with the daughter, and at this time, they would still like to pursue SNF placement. Current Medications Current Medications Current Medications: Current Medications Generic Name Dose Route Start Last Admin Trade Name Freq PRN Reason Stop Dose Admin Acetaminophen 650 mg 09/02/25 09:34 09/03/25 11:45 Acetaminophen 325 Mg Tablet PO 650 mg Q4HR PRN Administration Pain 1 to 4, or Fever Amlodipine Besylate 5 mg 09/03/25 09:00 09/03/25 08:52 Amlodipine 5 Mg Tablet PO 5 mg DAILY WINNIE Administration Aspirin 81 mg 09/03/25 09:00 09/03/25 08:52 Aspirin Ec 81 Mg Tablet PO 81 mg DAILY WINNIE Administration Enoxaparin Sodium 40 mg 09/03/25 09:00 09/03/25 08:51 Enoxaparin 40 Mg/0.4 Ml Syringe SUBQ 40 mg DAILY WINNIE Administration Lactated Ringer's 1,000 mls @ 75 mls/hr 09/02/25 15:00 09/03/25 18:56 Lr IV 75 mls/hr .[id number] WINNIE Administration Levetiracetam 500 mg 09/03/25 09:00 09/03/25 20:28 Levetiracetam 500 Mg/5 Ml Udc PO 500 mg BID WINNIE Administration Multivitamins/Minerals 1 tab 09/03/25 17:04 09/03/25 17:09 Multivitamin W/Minerals Tablet PO 1 tab DAILYWM WINNIE Administration Ondansetron HCl 4 mg 09/02/25 09:34 Ondansetron Odt 4 Mg Tablet TL Q6HR PRN Nausea / Vomiting Ondansetron HCl 4 mg 09/02/25 09:34 Ondansetron 4 Mg/2 Ml Vial IVP Q6HR PRN Nausea / Vomiting Abiraterone 500 Mg 2 each 09/03/25 13:00 09/04/25 06:38 Tablet PO 2 each 0700 WINNIE Administration Polyethylene Glycol 17 gm 09/03/25 12:00 09/03/25 11:45 Polyethylene Glycol 3350 17 Gm Packet PO 17 gm DAILY WINNIE Administration Potassium Chloride 40 meq 09/03/25 08:00 09/03/25 08:52 Potassium Chloride 20 Meq Tablet PO 40 meq DAILYWM WINNIE Administration Prednisone 5 mg 09/04/25 07:00 09/04/25 06:38 Prednisone 5 Mg Tablet PO 5 mg 0700 WINNIE Administration Senna 8.6 - 17.2 mg 09/04/25 09:00 Senna 8.6 Mg Tablet PO DAILY WINNIE Sodium Chloride 10 ml 09/02/25 09:34 09/02/25 12:20 Sodium Chloride Flush 0.9% 10 Ml Syringe IVP 10 ml PRN PRN Administration NEEDED PER PROVIDER ORDERS Sodium Chloride 10 ml 09/02/25 17:00 09/04/25 00:00 Sodium Chloride Flush 0.9% 10 Ml Syringe IVP Not Given 0100,0900,1700 [facility] Objective Vital Signs/Intake & Output Reviewed Vital Signs: Yes Vital Signs: Vital Signs x48h Temp Pulse Resp BP Pulse Ox 09/04/25 05:00 98.6 F 78 18 167/77 H 95 09/04/25 00:00 97.9 F 76 20 144/70 H 93 Intake & Output: Intake & Output 09/01/25 09/02/25 09/03/25 09/04/25 23:59 23:59 23:59 23:59 Intake Total 100 / 100 2770 / 2770 Output Total 30 / 30 650 / 650 Balance 70 / 70 2120 / 2120 -1 / -1 Weight (kg) 66 kg Objective Comments/Other: Constitutional normal general appearance, no apparent distress, average body habitus and no limitations Diffuse ecchymosis over right side of face with small abrasion on cheek. Ecchymosis noted all over right arm. HENMT head/scalp traumatic Eyes PERRL, EOMs intact bilaterally and conjunctivae normal Neck/C-Spine visual inspection normal, trachea midline and cervical spine nontender Chest inspection of chest normal Respiratory breath sounds equal bilaterally, normal respiratory effort, clear to auscultation bilaterally, no wheezes, no rales and no retractions Cardiovascular normal heart rate noted, regular rhythm noted, no gallop, no rub and no murmur Gastrointestinal abdomen normal to inspection, abdomen soft to palpation, nontender to palpation and normoactive bowel sounds Genitourinary no CVA tenderness and bladder normal to palpation Neurology no movement abnormality noted and no focal motor deficit noted Psychiatry alert and oriented x 3, conversing appropriately Skin no rash, no lesions and ecchymosis noted (Ecchymosis noted on bilateral arms, right worse than left. ) Lab Results 09/04/25 05:30 09/04/25 05:30 Other Labs: Lab Results x24hrs 09/04/25 Range/Units 05:30 WBC 4.3 L (4.8-10.8) x10^3/uL RBC 3.55 L (4.70-6.10) 10^6/uL Hgb 11.9 L (14.0-18.0) g/dL Hct 35.0 L (42.0-52.0) % MCV 98.6 H (80.0-94.0) fL MCH 33.5 H (27.0-31.0) pg MCHC 34.0 (32.0-36.0) g/dL RDW 11.9 L (12.0-15.0) % Plt Count 143 (130-450) 10^3/uL MPV 10.0 (7.4-11.4) fL Sodium 137 (135-145) mmol/L Potassium 3.6 (3.5-4.5) mmol/L Chloride 105 (101-111) mmol/L Carbon Dioxide 26 (21-32) mmol/L Anion Gap 6.0 (6-13) BUN 11 (6-20) mg/dL Creatinine 0.7 (0.6-1.3) mg/dL Estimated GFR (MDRD) 108 (>89) Glucose 107 H (74-104) mg/dL Calcium 8.8 (8.5-10.3) mg/dL Magnesium 2.1 (1.7-2.3) mg/dL Assessment/Plan Problem List (1) Acute metabolic encephalopathy: (2) Post-ictal confusion: (3) Seizure disorder: Impression: The following plan is for the above three assessments: Patient presented after witnessed tonic-clonic seizure at home. Was postictal yesterday, is now back at his baseline mental status. Was prescribed Keppra in 11/24 but has not been taking it for months. Keppra level ordered. Loaded with 1g Keppra. Continue 500mg BID. Should follow up with neurology in the outpatient setting, and get EEG completed as well. already has referral in place. CT head negative. MRI brain completed 11/24 after similar episode showed no bleeds, masses, metastases or acute ischemic changes. MUDS positive for opiates (prescribed for metastatic prostate cancer). Patient has been having some progressive weakness at home, as well as unsteady gait, and dizziness. PT reccomends SNF - medically cleared, awaiting placement. (4) Right wrist pain: Impression: Patient with right wrist pain after fall, now that he's a little more awake. XR wrist ordered, no bony abnormality noted. (5) Prostate cancer: Impression: Continue abiraterone and prednisone. Evidence of metastasis to bone. 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 Follows with Dr. Francis, oncology, and they have an appointment with him before Brian to discuss next steps. (6) Hypertension: Impression: Continue amlodipine. Qualifiers: Hypertension type: unspecified Qualified Code(s): I10 - Essential (primary) hypertension (7) Dementia: Impression: Noted some progressive memory loss over the last 4 years. Still largely dependent for IADLs. Dependent on for things like cooking and cleaning. Qualifiers: Dementia behavioral or psychological symptom: unspecified whether behavioral, psychotic, or mood disturbance or anxiety Dementia severity: u nspecified severity Dementia type: unspecified type Qualified Code(s): F03.90 - Unspecified dementia, unspecified severity, without behavioral disturbance, psychotic disturbance, mood disturbance, and anxiety
[2025-09-04] MEDS: SENNA 8.6 MG TABLET PO SCH (08:30)
[2025-09-04] MEDS ORDERED: HYDROcod/ACETAM 5/325 MG TABLET PO PRN (09:46)
--- OUTSIDE RECORDS SUMMARY | 2025-09-05 03:54 | EXTERNAL MEDICAL SUMMARY RPT ---
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 Past Treatment and Therapy Plans No past plan information found. Radiation Treatments * Course 1 03/01/2025 - 03/05/2025 Treatment Sites Treatment Period Technique Fraction Dose Fra ctions Total Dose L1 - L4 03/01/2025 - 03/05/2025 Three Field 400 / 400 5 / 5 2,000 / 2,000
--- OUTSIDE RECORDS SUMMARY | 2025-09-05 03:54 | EXTERNAL MEDICAL SUMMARY RPT | Encounter Summary ---
Author Organization [facility] Address [facility] [address] Care Team Providers Care Microelectronics Assembler Name Role Phone Jillian Lubin MD Primary Care Provider [phone] Encounter Details Date Type Department Care Team (Late st Contact Info) Description 10/21/2024 Scanned Document SCANNED ONLY Scanned, Document Social History Tobacco Use Types Packs/Day Years Used Date Smoking Tobacco: Former Cigarettes 0.5 4 1 966 - 1970 Passive Smoke Exposure: Past Smokeless Tobacco: Never Comments:approx 5 yrs when i n - light smoking Father smoked Alcohol Use Standard Drinks/Week Comments No 0 (1 standard drink = 0.6 oz pur e alcohol) AUDIT-C Answer Date Recorded Q1: How often do you have a drink containing alc ohol? Never 10/18/2020 Average Number of Drinks Not on file 021 Frequency of Binge Drinking Not on file 09/30 Sex and Gender Information Value Date Recorded Sex Assigned at Not on file Legal Sex Male 11:05 AM PST Gender Identity Not on file Sexual Orientation Not on file documented as of this encounter Plan of Treatment Not on file documented as of this encounter Visit Diagnoses Not on filedocumented in this encounter Care Teams Microelectronics Assembler Relationship Specialty Start Date End Date Jillian Lubin MD [address] [place] [address] PCP - General Family Medicine 05/18/25 documented as of this encounter
--- OUTSIDE RECORDS SUMMARY | 2025-09-05 03:54 | EXTERNAL MEDICAL SUMMARY RPT | Encounter Summary ---
Author Organization [facility] Address [address] [place] [address] Care Team Providers Care Paving Stone Installer Name Role Phone Jillian Lubin MD Primary Care Provider [phone] Encounter Details Date Type Department Care Team (Late st Contact Info) Description 08/11/2024 Abstract CARDIOLOGY - [place] - [facility] [address] [place] [phone] Elsa Abraham LPN [address] [place] [address] Social History Tobacco Use Types Packs/Day Years [...] on filedocumented in this encounter Care Teams Paving Stone Installer Relationship Specialty Start Date End Date Jillian Lubin MD [address] [place] [address] PCP - General Family Medicine 05/18/25 documented as of this encounter
--- OUTSIDE RECORDS SUMMARY | 2025-09-05 03:54 | EXTERNAL MEDICAL SUMMARY RPT | Encounter Summary ---
Author Organization [facility] Address [address] [place] [address] Care Team Providers Care Customs Director Name Role Phone Vladimir Burt MD Primary Care Provider [phone] Salvador Chandler Primary Care Provider [phone] Jillian Lubin MD Primary Care Provider [phone]- [phone] Encounter Details Date Type Department Care Team (Late st Contact Info) Description 11/27/2018 Abstract CARDIOLOGY - [place] - [facility] [address] [place] [phone] Elsa Abraham LPN [address] [place] [address] Social History Tobacco Use Types Packs/Day Years Used Date Smoking Tobacco: Former Cigarettes Smokeless Tobacco: Never Comments:approx 5 yrs when i n - light smoking Alcohol Use Standard Drinks/Week Comments No 0 (1 standard drink = 0.6 oz pur e alcohol) AUDIT-C Answer Date Recorded Q1: How often do you have a drink containing alc ohol? Never 11/04/2018 Average Number of Drinks Not on file 019 Frequency of Binge Drinking Not on file 01/2019 Sex and Gender Information Value Date Recorded Sex Assigned at Not on file Legal Sex Male 11:05 AM PST Gender Identity Not on file Sexual Orientation Not on file documented as of this encounter Plan of Treatment Not on file documented as of this encounter Visit Diagnoses Not on filedocumented in this encounter Additional Health Concerns Infection Onset Date Last Indicated Resolved Time RULE-OUT Novel Coronavirus (COVID-19) 01/31/2021 01/31/2021 01/31/2021 10:01 PM PDT documented as of this encounter Care Teams Customs Director Relationship Specialty Start Date End Date Vladimir Burt MD [address] [place] [address] PCP - General Internal Medicine 10/24/18 02/02/21 Salvador Chandler [address] [place] [address] PCP - General Family Medicine 02/03/21 06/30/24 Jillian Lubin MD [address] [place] [address] PCP - General Family Medicine 05/18/25 documented as of this encounter
--- OUTSIDE RECORDS SUMMARY | 2025-09-05 03:54 | EXTERNAL MEDICAL SUMMARY RPT | Clinical Summary ---
Author Organization [facility] Address [address] [place] [address] Care Team Providers Care Compliance Attorney Name Role Phone Unavailable Primary Care Provider Unavailabl e Source Comments NOTE: The information displayed by Care Everywhere is extracted from the complete medical record and may not identify all current or past patient conditions.[facility] Social History Tobacco Use Types Packs/Day Years Used Date Smoking Tobacco: Never Assessed Sex and Gender Information Value Date Recorded Sex Assigned at Not on file Legal Sex Male 10:23 AM PST Gender Identity Not on file Sexual Orientation Not on file Plan of Treatment Health Maintenance Due Date Last Done Comments Vaccine: [id number] (1 - Tdap) 1962 Vaccine: Pneumococcal (1 of 1 - PCV) 1993 Vaccine: Shingles (1 of 2) 1993 Vaccine: RSV (1 - 1-dose 75+ series) 2018 FLU VACCINE (#1) 05/31/2025
--- OUTSIDE RECORDS SUMMARY | 2025-09-05 03:54 | EXTERNAL MEDICAL SUMMARY RPT | Encounter Summary ---
Author Organization [facility] Address [address] [address] Care Team Providers Care Beamer Hand Name Role Phone Salvador Chandler Primary Care Provider [phone] Jillian Lubin MD Primary Care Provider [phone] Encounter Details Date Type Department Care Team (Late st Contact Info) Description 10/31/2023 Documentation [facility]LL[facility] MANAGER Scanned, Document Social History Tobacco Use Types [...] on filedocumented in this encounter Care Teams Beamer Hand Relationship Specialty Start Date End Date Salvador Chandler [address] [place], [place] [id number] PCP - General Family Medicine 02/03/21 06/30/24 Jillian Lubin MD [address] [place] [address] PCP - General Family Medicine 05/18/25 documented as of this encounter
--- OUTSIDE RECORDS SUMMARY | 2025-09-05 03:54 | EXTERNAL MEDICAL SUMMARY RPT | Encounter Summary ---
Author Organization [facility] Address [address] [place] [address] Care Team Providers Care Stereoplotter Operator Name Role Phone Vladimir Burt MD Primary Care Provider [phone] Salvador Chandler Primary Care Provider [phone] Jillian Lubin MD Primary Care Provider [phone]- [phone] Encounter Details Date Type Department Care Team (Late st Contact Info) Description 10/14/2020 Abstract CARDIOLOGY - [place], [place] - [facility] [address] [place] [phone] Elsa Abraham LPN [address] [place] [address] Social History Tobacco Use Types Packs/Day Years [...] on file documented as of this encounter Functional Status documented as of this encounter Plan of Treatment Not on file documented as of this encounter Visit Diagnoses Not on filedocumented in this encounter Additional Health Concerns Infection Onset Date Last Indicated Resolved Time RULE-OUT Novel Coronavirus (COVID-19) 01/31/2021 01/31/2021 01/31/2021 10:01 PM PDT documented as of this encounter Care Teams Stereoplotter Operator Relationship Specialty Start Date End Date Vladimir Burt MD [address] [place] [address] PCP - General Internal Medicine 10/24/18 02/02/21 Salvador Chandler [address] [place] [address] PCP - General Family Medicine 02/03/21 06/30/24 Jillian Lubin MD [address] [place] [address] PCP - General Family Medicine 05/18/25 documented as of this encounter
--- OUTSIDE RECORDS SUMMARY | 2025-09-05 03:54 | EXTERNAL MEDICAL SUMMARY RPT | Encounter Summary ---
Author Organization [facility] Address [address] [place] [address] Care Team Providers Care Food Broker Name Role Phone Vladimir Burt MD Primary Care Provider [phone] Salvador Chandler Primary Care Provider [phone] Jillian Lubin MD Primary Care Provider [phone]- [phone] Encounter Details Date Type Department Care Team (Late st Contact Info) Description 11/18/2018 Abstract CARDIOLOGY - [place], [place] - [facility] [address] [place] [phone] Elsa Abraham LPN [address] [place] [address] Social History Tobacco Use Types Packs/Day Years Used Date Smoking Tobacco: Former Smokeless Tobacco: Never Alcohol Use Standard Drinks/Week Comments No 0 [...] documented as of this encounter Care Teams Food Broker Relationship Specialty Start Date End Date Vladimir Burt MD [address] [place] [address] PCP - General Internal Medicine 10/24/18 02/02/21 Salvador Chandler [address] [place] [address] PCP - General Family Medicine 02/03/21 06/30/24 Jillian Lubin MD [address] [place] [address] PCP - General Family Medicine 05/18/25 documented as of this encounter
--- OUTSIDE RECORDS SUMMARY | 2025-09-05 03:54 | EXTERNAL MEDICAL SUMMARY RPT | Encounter Summary ---
Author Organization [facility] Address [address] [place] [address] Care Team Providers Care Client Liaison Name Role Phone Vladimir Burt MD Primary Care Provider [phone] Salvador Chandler Primary Care Provider [phone] Jillian Lubin MD Primary Care Provider [phone] Encounter Details Date Type Department Care Team (Late st Contact Info) Description 06/19/2019 Scanned Document SCANNED ONLY Scanned, Document Social [...] documented as of this encounter Care Teams Client Liaison Relationship Specialty Start Date End Date Vladimir Burt MD [address] [place] [address] PCP - General Internal Medicine 10/24/18 02/02/21 Salvador Chandler [address] [place] [address] PCP - General Family Medicine 02/03/21 06/30/24 Jillian Lubin MD [address] [place] [address] PCP - General Family Medicine 05/18/25 documented as of this encounter
--- OUTSIDE RECORDS SUMMARY | 2025-09-05 03:54 | EXTERNAL MEDICAL SUMMARY RPT | Encounter Summary ---
Author Organization [facility] Address [facility] [address] Care Team Providers Care Showcase Maker Name Role Phone Salvador Chandler Primary Care Provider [phone] Jillian Lubin MD Primary Care Provider [phone] Reason for Visit * Reason Onset Date Comments Results 05/16/2022 [facility] venous media Encounter Details Date Type Department Care Team (Late st Contact Info) Description 05/16/2022 Telephone CARDIOLOGY - [address] [address] Roxanna Mccall NP [address] [place] [phone] Results ([facility] popexpert ) Social History Tobacco Use Types Packs/Day Years [...] on file documented as of this encounter Miscellaneous Notes * Telephone Encounter - Roxanna Mccall NP - 05/16/2022 4:40 PM PDT No DVT on venous duplex. * Telephone Encounter - Maria Del Rosario Alvarez, RN - 05/16/2022 3:42 PM PDT Results for venous US under the media tab. * Telephone Encounter - Della Downs - 05/16/2022 8:50 AM PDT [place] venous-media documented in this encounter Plan of Treatment Not on file documented as of this encounter Visit Diagnoses Not on filedocumented in this encounter Care Teams Showcase Maker Relationship Specialty Start Date End Date Salvador Chandler [address] [place] [address] PCP - General Family Medicine 02/03/21 06/30/24 Jillian Lubin MD [address] [place] [address] PCP - General Family Medicine 05/18/25 documented as of this encounter
--- OUTSIDE RECORDS SUMMARY | 2025-09-05 03:54 | EXTERNAL MEDICAL SUMMARY RPT | Clinical Summary ---
Author Organization [facility] Address [facility] [address] Care Team Providers Care Property Assessment Monitor Name Role Phone Jillian Lubin MD Primary Care Provider [phone] Allergies Active Allergy Reactions Criticality Noted Date Comments Gluten 10/29/2018 Sugars, Metabolically Active High 019 Pain through out whole body, Restless Leg Syndrome, itching Medications cholecalciferol (VITAMIN D3) 5000 unit tablet Take 5,000 Units by mouth daily Active Mv, Min Cmb#8/FA/Co Q10/Omega3 (PROTECT CARDIO ORAL) Take by mouth daily "Cardio [place]" Active MAGNESIUM OXIDE ORAL Take by mouth daily "Calm, natural vitality" Active FLAXSEED ORAL Take by mouth daily In hot cereal Active ZINC ORAL Take 25 mg by mouth as needed Active VITAMIN K2 ORAL Take by mouth daily Active ascorbic acid/collagen hydr (COLLAGEN PLUS VITAMIN C ORAL) Take by mouth daily "VitaSolaris Super Youth" Active predniSONE (DELTASONE) 5 MG tablet Take 5 mg by mouth daily Currently not taking at the moment as of 10/21/24 2 Active abiraterone (ZYTIGA) 500 mg tablet Take 1,000 mg by mouth daily 2 Active ibuprofen (ADVIL,MOTRIN) 600 MG tablet Take 1 tablet by mouth as needed 4 Active amLODIPine (NORVASC) 5 MG tablet Take 5 mg by mouth daily 5 Active flaxseed oiL 1,000 mg Capsule Take 1 tablet by mouth daily 5 Active clobetasoL (TEMOVATE) 0.05 % ointment 4 Active lidocaine (LIDODERM) 5 % Apply topically as needed 5 Active magnesium 200 mg Tablet Take 1 tablet by mouth daily 5 Active melatonin 10 mg capsule Take by mouth nightly Active phytonadione, vitamin K1, (MEPHYTON) 5 mg tablet Take 5 mg by mouth daily 5 Active potassium chloride (KLOR-CON) 10 MEQ CR tablet Take by mouth 5 01/05/20 26 Active aspirin 81 MG enteric coated tablet Take 1 tablet (81 mg total) by mouth daily 90 tablet 3 5 Active Active Problems Problem Noted Date Diagnosed Date Cerebrovascular accident (CVA) 08/13/2024 Syncope 08/13/2024 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 There is no evidence for interstitial lung disease. The pleural plaques by themselves would not cause dyspnea. We will repeat the CT scan since the last imaging study was from over 2 years ago. Memory loss 01/18/2023 Assessment & Plan (01/18/2023 5:15 PM PDT): Patient has demonstrated memory loss, combined with some other neurologic changes, tinnitus, possible peripheral neuropathy. He had a metal implant in his toe about 18 years ago. His is concerned about possible cobalt toxicity. Patient notes some lack of balance that also affects his activity. I think the first step to evaluate would probably be to see a neurologist. I did refer them to neurology. Any further toxicity test could be determined by the neurologist. Nonexudative age-related macular degeneration HOPKINS (dyspnea on exertion) 02/03/2021 Assessment & Plan (01/18/2023 4:25 PM PDT): Patient is complaining of dyspnea on exertion that has been longstanding. He noted it before he had his heart surgery, but it certainly has not worsened or improved afterwards. He actually has excellent physical conditioning. Patient can chop wood, empty a wheelbarrow and load his wood bin without difficulty. The only time he notices his dyspnea is when he climbs stairs or goes up an incline. He walks 3 miles a day on level ground without any issues. Last imaging studies in 2020 indicated the presence of pleural plaques, but generally normal lung parenchyma. It is not clear to me how severe his dyspnea is. He describes excellent physical capabilities that would tire out most men his age, but he notes dyspnea when he climbs up a flight of stairs or up an incline. The incline he is describing, however, is quite steep and quite lengthy, so that is quite understandable. Patient himself wonders if he is just comparing himself to what he should be, and that is why he feels like he is short of breath. We talked about how climbing stairs or going up an incline is always more difficult than doing any kind of work on level ground, and many people always complain of this kind of dyspnea despite being in otherwise good physical condition. We do have to rule out lung disease. The pleural plaques themselves would not be the issue, but his imaging is already 2 years old. We will repeat his CT of the chest to rule out parenchymal disease. Obtain formal pulmonary function testing to assess lung function. Patient has very remote smoking history, but he does have a lot of occupational exposures. It is possible that he could have underlying COPD. He clearly has some balance issues, and this brings up the issue of possible toxicity. Patient had a metal implant placed in his toe about 18 years ago, and his is concerned about cobalt toxicity. This is in the setting of cognitive decline, severe ringing in his ears and occasional electric sensations in his hip to his leg. I did do a referral to neurology. 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 10/29/2018 Aortic stenosis 10/24/2018 Abnormal cardiovascular stress test 10/24/2018 Glaucoma suspect 07/27/2015 Pseudophakia 07/27/2015 Combined forms of age-related cataract of right eye 07/27/2015 Myopia 07/27/2015 Encounters Date Type Department Care Team Description 07/07/2025 Refill CARDIOLOGY - [place], [place] [address] [place] [phone] Shell Zhang MA Medication Refill from Last 3 Months Family History Medical History Relation Comments Heart failure Father Heart failure Mother Relation Status Comments Father (Age 81) Mother (Age 91) Social History Tobacco Use Types Packs/Day Years [...] on file Sexual Orientation Not on file Last Filed Vital Signs Vital Sign Reading Time Taken Comments Blood Pressure 144/86 05/18/2025 11:30 AM PDT Pulse 60 05/18/2025 11:11 AM PDT Temperature 37 C (98.6 F) 10/22/2024 4:00 PM PST Respiratory Rate 18 10/22/2024 4:00 PM PST Oxygen Saturation 97% 05/18/2025 11:11 AM PDT Inhaled Oxygen Concentration - - Weight 68 kg (150 lb) 05/18/2025 11:11 AM PDT Height 182.9 cm (6') 05/18/2025 11:11 AM PDT Body Mass Index 20.34 05/18/2025 11:11 AM PDT Plan of Treatment Health Maintenance Due Date Last Done Comments Disability Screening 1943 Covid-19 Vaccine (#1) 1948 DTaP/Tdap/Td Vaccine (1 - Tdap) 1962 Pneumococcal 50+ Years (1 of 2 - PCV) 1962 Zoster (1 of 2) 1993 Medicare Initial Annual Wellness Visit G0438 9 RSV Vaccines (1 - 1-dose 75+ series) 2018 Drug, Alcohol, and Depression Screening 09/30/2024 SOGIE 09/30/2024 Influenza Vaccine (#1) 2025 Medical Devices Implanted Type Area Morphologist Device Identifier Shelf Expiration Date Model / Serial / Lot Valve Ao 23mm [facility] - [id number] Implanted:Qty : 1 on 11/04/2018 by Salvador Vigil MD at [facility] Heart Valve Tissue N/A: Heart [employer] CARDIO/VASCULAR 11/12/2022 [id number] / [id number] / Kit Hemost Strl Mtrx Malle Trm Tip Prep Flsl 5ml - [id number] Implanted:Qty : 1 on 11/04/2018 by Salvador Vigil MD at [facility] Implant Other N/A: Heart CELLFOR 11/28/2019 [id number] / / [id number] Lens Toe Joint Description:Steel joint Mntr Card Linq Ii Impl Loop Rec - [id number] Implanted:Qty : 1 on 08/19/2024 by Shiraz Tan MD at [facility] Left: Chest [employer] [id number] / [id number] / Description:Sutures and Derm abond Explanted Type Area Morphologist Device Identifier Shelf Expiration Date Model / Serial / Lot Valve Ao 23mm 400 Series Latexfr - [id number] Implanted:Qty : 1 Explanted:Qty : 1 on 11/04/2018 at [facility] Heart Valve Tissue N/A: Heart [employer] CARDIO/VASCULAR 10/16/2019 [id number] / [id number] / Insurance MEDICARE [facility] Advance Directives * Full Code (Latest Code Status on File) Date Activated Date Inactivated Comments 10/22/2024 2:52 PM 10/23/2024 2:14 AM * Full Code Date Activated Date Inactivated Comments 02/03/2021 10:47 AM 02/03/2021 5:52 PM * Full Code Date Activated Date Inactivated Comments 11/04/2018 3:01 PM 02/03/2021 6:17 AM * Full Code Date Activated Date Inactivated Comments 10/23/2018 4:23 PM 11/04/2018 7:31 AM Care Teams Property Assessment Monitor Relationship Specialty Start Date End Date Jillian Lubin MD [address] [place] [address] PCP - General Family Medicine 05/18/25
--- OUTSIDE RECORDS SUMMARY | 2025-09-05 03:54 | EXTERNAL MEDICAL SUMMARY RPT | Encounter Summary ---
Author Organization [facility] Address [address] [place] [address] Care Team Providers Care Cane Flume Watcher Name Role Phone Vladimir Burt MD Primary Care Provider [phone] Salvador Chandler Primary Care Provider [phone] Jillian Lubin MD Primary Care Provider [phone]- [phone] Encounter Details Date Type Department Care Team (Late st Contact Info) Description 01/17/2021 Abstract CARDIOLOGY - [place], [place] - [facility] [address] [place] [phone] Elsa Abraham LPN [address] [place] [address] Social History Tobacco Use Types Packs/Day Years [...] documented as of this encounter Care Teams Cane Flume Watcher Relationship Specialty Start Date End Date Vladimir Burt MD [address] [place] [address] PCP - General Internal Medicine 10/24/18 02/02/21 Salvador Chandler [address] [place] [address] PCP - General Family Medicine 02/03/21 06/30/24 Jillian Lubin MD [address] [place] [address] PCP - General Family Medicine 05/18/25 documented as of this encounter
--- OUTSIDE RECORDS SUMMARY | 2025-09-05 03:54 | EXTERNAL MEDICAL SUMMARY RPT | Encounter Summary ---
Author Organization [facility] Address [address] [place] [address] Care Team Providers Care Supervisor Carding Name Role Phone Vladimir Burt MD Primary Care Provider Salvador Chandler Primary Care Provider [phone] Jillian Lubin MD Primary Care Provider [phone] Encounter Details Date Type Department Care Team (Late st Contact Info) Description 11/01/2020 Scanned Document SCANNED ONLY Scanned, Document Social [...] documented as of this encounter Care Teams Supervisor Carding Relationship Specialty Start Date End Date Vladimir Burt MD [address] [place] [address] PCP - General Internal Medicine 10/24/18 02/02/21 Salvador Chandler [address] [place] [address] PCP - General Family Medicine 02/03/21 06/30/24 Jillian Lubin MD [address] [place] [address] PCP - General Family Medicine 05/18/25 documented as of this encounter
--- OUTSIDE RECORDS SUMMARY | 2025-09-05 03:54 | EXTERNAL MEDICAL SUMMARY RPT | Encounter Summary ---
Author Organization [facility] Address [address] [place] [address] Care Team Providers Care Supervisor Lime Name Role Phone Jillian Lubin MD Primary Care Provider [phone] Reason for Visit * Reason Onset Date Comments Incision site 10/16/2024 Encounter Details Date Type Department Care Team (Late st Contact Info) Description 10/16/2024 Telephone [facility] [address] [facility] [address] [facility] [place] [address] Drake Queen, RN [address] [place] [address] Incision site Social History Tobacco Use Types Packs/Day Years [...] encounter Miscellaneous Notes * Telephone Encounter - Lizeth Downs - 10/23/2024 2:14 PM PST I attached the correct order. I could not remove the implant order. As far as billing it will codedand charged based on the providers note not the order. * Telephone Encounter - Mine Weinstein - 10/23/2024 11:28 AM PST I see patient had procedure yesterday however the attached order was for a Loop Recorder Implant not Explant. Please advise what was done and please schedule a postop as it does not look like one wasscheduled. * Telephone Encounter - Opal Williamson - 10/20/2024 3:13 PM PST Patient scheduled for 10/21 * Telephone Encounter - Opal Williamson - 10/19/2024 12:30 PM PST Left message for patient to schedule. Opal 9:05 am * Telephone Encounter - Mine Weinstein - 10/19/2024 9:39 AM PST Please see below and reschedule patient with Roxanna Mccall. * Telephone Encounter - Drake Queen RN - 10/16/2024 4:06 PM PST Pt's called today to let me know that there has been some swelling at the incision site for the ILR that was implanted in July 2024. She notes that about a week ago there was a blister therewhich drained a small amount of light yellow drainage. She notes that today there is a small scab there with a small amount of swelling. Pt lives in [place] and missed an appointment with Roxanna Mccall this week, planning to reschedule with her in [facility]. As far as I'm concerned I'm happy to have Roxanna take a look at it, and she can refer them back to our office if that seems necessary. Roxanna, let me know if you are okay with this plan, thanks. documented in this encounter Plan of Treatment Not on file documented as of this encounter Visit Diagnoses Not on filedocumented in this encounter Care Teams Supervisor Lime Relationship Specialty Start Date End Date Jillian Lubin MD [address] [place] [address] PCP - General Family Medicine 05/18/25 documented as of this encounter
--- OUTSIDE RECORDS SUMMARY | 2025-09-05 03:54 | EXTERNAL MEDICAL SUMMARY RPT | Encounter Summary ---
Author Organization [facility] Address [address] [place] [address] Care Team Providers Care Optometric Aide Name Role Phone Pcp, None Selected Primary Care Provider Unavail able Encounter Details Date Type Department Care Team ([facility] Contact Info) Description 04/18/2021 Orders Only [facility] [place] [address] [place] [address] [place] [phone] Boogie Ariza MD [address] [place] [address] Dizziness; Memory loss; Prostate cancer ([facility]/HCC) Social History Tobacco Use Types Packs/Day Years Used Date Smoking Tobacco: Former Cigarettes 0 4 1 968 - 1972 Smokeless Tobacco: Never Alcohol Use Standard Drinks/Week Comments Yes 0 (1 standard drink = 0.6 oz pur e alcohol) 1 beer/mo rare AUDIT-C Answer Date Recorded Q1: How often do you have a drink containing alc ohol? Monthly or less 05/31/2020 Q2: How many drinks containi ng alcohol do you have on a typical day when you are drinking? 1 or 2 05/31/2020 Q3: How often do you have si x or more drinks on one occasion? Never 05/31/2020 Sex and Gender Information Value Date Recorded Sex Assigned at Not on file Legal Sex Male 7:10 PM PDT Gender Identity Not on file Sexual Orientation Not on file Occupation Industry Job Start Date Job End Date Not on file Not on file Not on file Not on file documented as of this encounter Plan of Treatment Upcoming Encounters Date Type Department Care Team ([facility] Contact Info) Description 09/06/2025 10:20 AM PST Office Visit [facility] [place] [address], [address] [place] [phone] [place] Raymundo ARNP [address] [place] [address] Nissa Francis MD [address] [place] [address] 09/25/2025 11:10 AM PST Appointment [facility] [address] [place] [address] [place] Raymundo ARNP [address] [place] [address] documented as of this encounter Procedures Procedure Name Priority Date/Time Associated Diagnosis Comments MR BRAIN WITH/WITHOUT CONTRAST Routine 04/18/2021 Dizziness Memory loss Prostate cancer (CMS/HCC) documented in this encounter Results * MR BRAIN WITH/WITHOUT CONTRAST (04/18/2021) us Boogie Ariza MD [facility] MR PROCEDURES Final R esult documented in this encounter Visit Diagnoses Diagnosis Dizziness Dizziness and giddiness Memory loss Prostate cancer (CMS/HCC) Malignant neoplasm of prostate documented in this encounter Care Teams Optometric Aide Relationship Specialty Start Date End Date Pcp, None Selected PCP - General 01/14/25 documented as of this encounter
--- OUTSIDE RECORDS SUMMARY | 2025-09-05 03:54 | EXTERNAL MEDICAL SUMMARY RPT | Encounter Summary ---
Author Organization [facility] Address [address] [address] Care Team Providers Care Sales Training Manager Name Role Phone Salvador Chandler Primary Care Provider [phone] Jillian Lubin MD Primary Care Provider [phone] Encounter Details Date Type Department Care Team (Late st Contact Info) Description 05/11/2022 Scanned Document SCANNED ONLY Scanned, Document Social [...] on filedocumented in this encounter Care Teams Sales Training Manager Relationship Specialty Start Date End Date Salvador Chandler [address] [place] [address] PCP - General Family Medicine 02/03/21 06/30/24 Jillian Lubin MD [address] [place] [address] PCP - General Family Medicine 05/18/25 documented as of this encounter
--- OUTSIDE RECORDS SUMMARY | 2025-09-05 03:54 | EXTERNAL MEDICAL SUMMARY RPT | Encounter Summary ---
Author Organization [facility] Address [address] [place] [address] Care Team Providers Care Teen Counselor Name Role Phone Vladimir Burt MD Primary Care Provider [phone] Salvador Chandler Primary Care Provider [phone] Jillian Lubin MD Primary Care Provider [phone]- [phone] Encounter Details Date Type Department Care Team (Late st Contact Info) Description 06/12/2019 Abstract CARDIOLOGY - [place], [place] - [facility] [address] [place] [phone] Elsa Abraham LPN [address] [place] [address] Social History Tobacco Use Types Packs/Day Years [...] documented as of this encounter Care Teams Teen Counselor Relationship Specialty Start Date End Date Vladimir Burt MD [address] [place] [address] PCP - General Internal Medicine 10/24/18 02/02/21 Salvador Chandler [address] [place] [address] PCP - General Family Medicine 02/03/21 06/30/24 Jillian Lubin MD [address] [place] [address] PCP - General Family Medicine 05/18/25 documented as of this encounter
--- OUTSIDE RECORDS SUMMARY | 2025-09-05 03:54 | EXTERNAL MEDICAL SUMMARY RPT | Encounter Summary ---
Author Organization [facility] Address [address] [address] Care Team Providers Care Dressed Poultry Grader Name Role Phone Salvador Chandler Primary Care Provider [phone] Jillian Lubin MD Primary Care Provider [phone] Encounter Details Date Type Department Care Team (Late st Contact Info) Description 06/12/2024 Scanned Document SCANNED ONLY Scanned, Document Social [...] on filedocumented in this encounter Care Teams Dressed Poultry Grader Relationship Specialty Start Date End Date Salvador Chanlder [address] [place], [place] [id number] PCP - General Family Medicine 02/03/21 06/30/24 Jillian Lubin MD [address] [place] [address] PCP - General Family Medicine 05/18/25 documented as of this encounter
--- OUTSIDE RECORDS SUMMARY | 2025-09-05 03:54 | EXTERNAL MEDICAL SUMMARY RPT | Clinical Summary ---
Author Organization [facility] Address [address] [place] [address] Care Team Providers Care Cake Icer Name Role Phone Pcp, None Selected Primary Care Provider Unavail able Allergies Active Allergy Reactions Criticality Noted Date Comments Gluten 10/29/2018 Sugars, Metabolically Active High 019 Pain through out whole body, Restless Leg Syndrome, itching Medications SF 5000 PLUS 1.1 % cream 0 Active cholecalciferol, vitamin D3, 125 mcg (5,000 unit) tablet Take 2,000 Units by mouth Active ibuprofen (ADVIL,MOTRIN) 200 mg tablet Take by mouth every 6 hours as needed Active ibuprofen (ADVIL,MOTRIN) 600 mg tablet every 6 (six) hours as needed for mild pain (1-3) or moderate pain (4-6) 4 Active aspirin 81 mg EC tablet Take 1 tablet (81 mg total) by mouth daily 4 Active amoxicillin (AMOXIL) 500 mg capsule 4 Active amLODIPine (NORVASC) 5 mg tabletIndication s:Primary hypertension Take 1 tablet (5 mg total) by mouth daily 30 tablet 3 5 Active potassium chloride (KLOR-CON) 10 mEq CR tabletIndication s:Hypokalemia Take 1 tablet (10 mEq total) by mouth 2 (two) times a day Take with food. Can irritate stomach. 60 tablet 3 5 01/05/20 26 Active predniSONE (DELTASONE) 5 mg tabletIndication s:Prostate cancer (CMS/HCC) Take 1 tablet (5 mg total) by mouth 2 (two) times a day 180 tablet 3 5 Active Additional Information Patient not taking.Reported on 07/15/2025 abiraterone 500 mgIndications:Pr ostate cancer (CMS/HCC) Take2 tablets (1,000 mg total) by mouth every morning before breakfast Take at least 1 hour before breakfast 60 tablet 11 5 Active ascorbic acid, vitamin C, (ascorbic acid with melvin hips) 500 mg tablet Take 1 tablet (500 mg total) by mouth daily with breakfast Active flaxseed oiL 1,000 mg capsule Take 1 tablet by mouth daily 5 Active magnesium 200 mg tablet Take 1 tablet by mouth daily 5 Active melatonin 10 mg capsule Take 2 tablets by mouth nightly Active zinc sulfate 50 mg zinc (220 mg) tablet Take 1 tablet by mouth daily 5 Active fluconazole (DIFLUCAN) 100 mg tablet TAKE 1 TABLET BY MOUTH once DAILY for 7 days, then take 1 tablet once every saturday for 7 saturdays 5 Active levETIRAcetam (KEPPRA) 500 mg tablet Take 1 tablet (500 mg total) by mouth 5 Active mupirocin (BACTROBAN) 2 % ointment Apply a pea-sized amount of Mupirocin to wounds on body for 2 weeks, then as needed. 5 Active HYDROcodone-acet aminophen (NORCO) 5-325 mgIndications:Pr ostate cancer metastatic to multiple sites (CMS/HCC),Cancer associated pain Take 1 tablet by mouth every 4 (four) hours as needed for moderate pain (4-6) 30 tablet 5 09/13/20 25 Active Active Problems Problem Noted Date Diagnosed Date Prostate cancer metastatic to bone 02/14/2025 Lower urinary tract symptoms (LUTS) 10/16/2019 Scrotal mass 10/16/2019 Encounters Date Type Department Care Team Description 07/15/2025 3:00 PM PDT Office Visit [facility] [address], [address] [place] [address] [place] Raymundo ARNP Prostate cancer metastatic to multiple sites (CMS/HCC) (Primary Dx); Cancer associated pain 06/30/2025 - 06/30/2025 11:59 PM PDT Hospital Encounter [facility] [address], [address] [place] [address] [employer], General Discharge Disposition: Home/Self Care from Last 3 Months Family History Medical History Relation Comments Heart disease Father Breast cancer Sister Relation Status Comments Father Sister Social History Tobacco Use Types Packs/Day Years Used Date Smoking Tobacco: Former Cigarettes 0 4 1 968 - 1972 Smokeless Tobacco: Never Tobacco Cessation:Counseling Given: Not Answered Alcohol Use Standard Drinks/Week Comments Yes 0 [...] file Not on file Not on file Last Filed Vital Signs Vital Sign Reading Time Taken Comments Blood Pressure 150/78 07/15/2025 3:51 PM PDT Pulse 68 07/15/2025 3:51 PM PDT Temperature 36.5 C (97.7 F) 07/15/2025 3:51 PM PDT Respiratory Rate 16 07/15/2025 3:51 PM PDT Oxygen Saturation 99% 07/15/2025 3:51 PM PDT Inhaled Oxygen Concentration - - Weight 62.4 kg (137 lb 9.6 oz) 07/15/2025 3:51 P M PDT Height 174.6 cm (5' 8.74") 07/15/2025 3:51 PM PD T Body Mass Index 20.47 07/15/2025 3:51 PM PDT Plan of Treatment Upcoming Encounters Date Type Department Care Team (Late st Contact Info) Description 09/06/2025 10:20 AM PST Office Visit [facility] [address], [address] [place] [id number] [place] Raymundo ARNP [address] [place] [address] Nissa Francis MD [address] [place] [address] 09/25/2025 11:10 AM PST Appointment [facility] [address] [place] [address] [place] Raymundo ARNP [address] [place] [address] Health Maintenance Due Date Last Done Comments Medicare Annual Wellness (AWV) 1945 COVID-19 Vaccine (#1) 1948 Depression Screening (PHQ-2) 1955 DTaP,Tdap,and Td Vaccines (1 - Tdap) 1962 HM Pneumococcal Adult 50+ (1 of 2 - PCV) 1962 Zoster Vaccines (1 of 2) 1962 Fall Risk Screening 2008 RSV Patients Over 60 years O R qualifying ( Patients) (1 - 1-dose 75+ series) 2018 Influenza Vaccine (#1) 2025 HPV Vaccines Aged Out No longer eligi ble based on patient's age to complete this topic Hepatitis A Vaccines Aged Out No long er eligible based on patient's age to complete this topic Hepatitis B Vaccines Aged Out No long er eligible based on patient's age to complete this topic IPV Vaccines Aged Out No longer eligi ble based on patient's age to complete this topic MMR Vaccines Aged Out No longer eligi ble based on patient's age to complete this topic Procedures Procedure Name Priority Date/Time Associated Diagnosis Comments COMPLETE BLOOD COUNT WITH DIFF RESULT Routine 07/12/2025 10:16 AM PDT Prostate cancer metastatic to multiple sites (CMS/HCC) COMPLETE BLOOD COUNT WITH DIFF Routine 07/12/2025 10:16 AM PDT Prostate cancer metastatic to multiple sites (CMS/HCC) COMPREHENSIVE METABOLIC PANEL Routine 07/12/2025 10:16 AM PDT Prostate cancer metastatic to multiple sites (CMS/HCC) PROSTATE-SPECIFIC AG Routine 07/12/2025 10:16 AM PDT Prostate cancer metastatic to multiple sites (CMS/HCC) from Last 3 Months Results * (ABNORMAL) Complete blood count with diff (07/12/2025 10:16 AM PDT) WBC Auto 4.2 3.8 - 10.1 x10e3/uL 07/12/2025 10:[address] [facility] RBC 3.89(L) 4.40 - 5.80 x10e6/uL 07/12/2025 10:[address] [facility] Hemoglobin 13.1(L) 13.8 - 17.2 g/dL 07/12/2025 10:[address] [facility] Hematocrit 39.4(L) 41.0 - 50.0 % 07/12/2025 10:[address] [facility] MCV 101(H) 81 - 100 fL 07/12/2025 10:[address] [facility] MCH 33.7 27.0 - 35.0 pg 07/12/2025 10:[address] [facility] MCHC 33.2 32.0 - 37.0 g/dL 07/12/2025 10:[address] [facility] RDW 12.9 12.3 - 15.4 % 07/12/2025 10:[address] [facility] Platelets 118(L) 150 - 400 x10e3/uL 07/12/2025 10:[address] [facility] MPV 10.0 7.4 - 10.4 fL 07/12/2025 10:[address] [facility] % Neutrophils 64 % 07/12/2025 10:[address] [facility] % Lymphocytes 24 % 07/12/2025 10:[address] [facility] % Monocytes 10 % 07/12/2025 10:[address] [facility] % Eosinophils 1 % 07/12/2025 10:36 AM PDT [facility] % Basophils 1 % 07/12/2025 10:36 AM PDT [facility] Abs. Neutrophils 2.7 1.6 - 6.9 x10e3/uL 07/12/2025 10:[address] [facility] Abs. Lymphocytes 1.0(L) 1.1 - 4.8 x10e3/uL 07/12/2025 10:36 AM PDT [facility] Abs. Monocytes 0.4 0.0 - 1.0 x10e3/uL 07/12/2025 10:36 AM PDT [facility] Abs. Eosinophils 0.1 0.0 - 0.5 x10e3/uL 07/12/2025 10:[address] [facility] Abs. Basophils 0.0 0.0 - 0.4 x10e3/uL 07/12/2025 10:[address] [facility] Abs. Neutrophils (Auto) 2,700.0 1,600.0 - 6,900.0 /uL 07/12/2025 10:[address] [facility] Blood Venous blood / Unknown Venipuncture / Unknown 07/12/2025 10:16 AM PDT 07/12/2025 10:16 AM PDT Nissa Francis MD LAB BLOOD ORDERABLES Final Resul t [facility] [address] [place] [address], * Prostate-Specific Ag (07/12/2025 10:16 AM PDT) PSA, Serum/Plasma 1.09 <=4.00 ng/mL LAB CHEMISTRY METHOD 07/12/2025 5:11 PM [facility] Comment:Patients taking Biot in supplements may have falsely decreased HCG, Ferritin, PSA, Troponin, or TSH test values. Blood Venous blood / Unknown Venipuncture / Unknown 07/12/2025 10:16 AM PDT 07/12/2025 10:16 AM PDT us Nissa Francis MD LAB BLOOD ORDERABLES Final Resul t [facility] [address] [place] [address], * (ABNORMAL) Comprehensive Metabolic Panel (07/12/2025 10:16 AM PDT) Sodium, Serum/Plasma 140 135 - 145 mmol/L LAB CHEMISTRY METHOD 07/12/2025 10:[address] [facility] Potassium, Serum/Plasma 4.4 3.5 - 5.2 mmol/L LAB CHEMISTRY METHOD 07/12/2025 10:[address] [facility] Chloride, Serum/Plasma 106 98 - 107 mmol/L LAB CHEMISTRY METHOD 07/12/2025 10:[address] [facility] CO2, Serum/Plasma 28 22 - 30 mmol/L LAB CHEMISTRY METHOD 07/12/2025 10:[address] [facility] Anion Gap, Serum/Plasma 6 3 - 11 mmol/L 07/12/2025 10:[address] [facility] Urea Nitrogen, Serum/Plasma 14.0 8.0 - 27.0 mg/dL LAB CHEMISTRY METHOD 07/12/2025 10:[address] [facility] Creatinine, Serum/Plasma 0.73(L) 0.76 - 1.27 mg/dL LAB CHEMISTRY METHOD 07/12/2025 10:[address] [facility] Glucose, Serum/Plasma 93 65 - 99 mg/dL LAB CHEMISTRY METHOD 07/12/2025 10:[address] [facility] Calcium, Serum/Plasma 9.6 8.5 - 10.1 mg/dL LAB CHEMISTRY METHOD 07/12/2025 10:[address] [facility] AST, Serum/Plasma 27 17 - 59 U/L LAB CHEMISTRY METHOD 07/12/2025 10:[address] [facility] ALT, Serum/Plasma 18 <50 U/L LAB CHEMISTRY METHOD 07/12/2025 10:[address] [facility] Alkaline Phosphatase, Serum/Plasma 110 25 - 160 U/L LAB CHEMISTRY METHOD 07/12/2025 10:[address] [facility] Total Protein, Serum/Plasma 6.8 6.3 - 8.2 g/dL LAB CHEMISTRY METHOD 07/12/2025 10:[address] [facility] eGFR, Serum/Plasma (CKD-EPI 2020) 91 >60 (CKD-EPI 2020) mL/min/1. 73 m2 07/12/2025 10:[address] [facility] Comment: eGFR calculation has been updated by recommendation of the National Kidney Foundation (NKF) without the race variable. This change was made on December 17, 2022 Interpretation for GFR in Chronic Kidney Disease can be viewed below. Albumin, Serum/Plasma 4.0 3.4 - 5.0 g/dL LAB CHEMISTRY METHOD 07/12/2025 10:[address] [facility] Bilirubin, Total, Serum/Plasma <0.90 0.2 - 1.3 mg/dL LAB CHEMISTRY METHOD 07/12/2025 10:[address] [facility] BUN/Creatinine Ratio, Serum/Plasma 19.2 6.0 - 24.0 07/12/2025 10:[address] [facility] Blood Venous blood / Unknown Venipuncture / Unknown 07/12/2025 10:16 AM PDT 07/12/2025 10:[address] [facility] - 07/12/2025 10:46 AM [facility] Interpretive Data The estimated glomerular filtration rate (eGFR) was calculated using the 2020 CKD-EPI eGFR creatinine equation, which does not include race as a factor. This equation is validated in individuals 18 years of age and older. Accurate estimation of GFR requires stable day-to-day creatinine. Creatinine-based eGFR is less accurate in patients with extremes of muscle mass, restriction of dietary protein, ingestion of creatine, extra-renal metabolism of creatinine, or treatment with medications that affect renal tubular creatinine secretion. The eGFR is normalized to a body surface area of 1.73 square meters. GFR Categories in Chronic Kidney Disease (CKD) GFR Category GFR (mL/min/1.73 square meters) Interpretation G1 90 or greater Normal to high* G2 60-89 Mild decrease* G3a 45-59 Mild to moderate decrease G3b 30-44 Moderate to severe decrease G4 15-29 Severe decrease G5 14 or less Kidney failure *In the absence of evidence of kidney damage, neither GFR category G1 nor G2 fulfill the criteria for CKD (Kidney Int Suppl 2013;3:1-150) us Nissa Francis MD LAB BLOOD ORDERABLES Final Resul t [facility] [address] [place] [address], [place] [phone] from Last 3 Months Insurance MEDICARE PART A AND B [facility] Care Teams Cake Icer Relationship Specialty Start Date End Date Pcp, None Selected PCP - General 01/14/25
--- OUTSIDE RECORDS SUMMARY | 2025-09-05 03:54 | EXTERNAL MEDICAL SUMMARY RPT | Clinical Summary ---
Author Organization [facility] Address [address] [place] [address] Care Team Providers Care Boiler Operator Name Role Phone Unavailable Primary Care Provider Unavailabl e Social History Tobacco Use Types Packs/Day Years Used Date Smoking Tobacco: Never Assessed Sex and Gender Information Value Date Recorded Sex Assigned at Not on file Legal Sex Male 4:33 AM PST Gender Identity Not on file Sexual Orientation Not on file Plan of Treatment Not on file
--- OUTSIDE RECORDS SUMMARY | 2025-09-05 03:54 | EXTERNAL MEDICAL SUMMARY RPT | Encounter Summary ---
Author Organization [facility] Address [address] [place] [address] Care Team Providers Care Jawbone Puller Name Role Phone Salvador Chandler Primary Care Provider [phone] Jillian Lubin MD Primary Care Provider [phone] Encounter Details Date Type Department Care Team (Late st Contact Info) Description 11/19/2022 Telephone CARDIOLOGY - [place], [place] - [facility] [address] [place] [address] [place] [phone] Norm Geiger MD [address] [place] [id number] Social History Tobacco Use Types Packs/Day Years [...] encounter Miscellaneous Notes * Telephone Encounter - Jacque Zheng - 11/23/2022 1:50 PM PST 11/23/22 Left vm with number to schedule. * Telephone Encounter - Nahed Martinez CMA - 11/20/2022 4:44 PM PST Referral was placed. Msg to scheduling to assist pt setting up consult with pulm. * Telephone Encounter - Norm Geiger MD - 11/20/2022 12:56 PM PST I have not seen patient since 2020. He was seen by Roxanna Mccall nurse practitioner in [place] office in May 2022. His heart looked stable then He is having worsening shortness of breath then reasonable to see a shaft tender and I can put in a consult request today. * Telephone Encounter - Nahed Martinez CMA - 11/19/2022 11:16 AM PST Message to Dr. Gieger to advise if they should contact PCP or if referral is placable by our office?? thanks * Telephone Encounter - Klarissa Patel - 11/19/2022 11:01 AM PST Patient called in and would like to have a referral for Sathish to see a shaft tender. They were advised that if he had any breathing issues to call to get a referral. They can be reached at number on file as well as [phone] documented in this encounter Plan of Treatment Not on file documented as of this encounter Visit Diagnoses Not on filedocumented in this encounter Care Teams Jawbone Puller Relationship Specialty Start Date End Date Salvador Chandler [address] [place] [address] PCP - General Family Medicine 02/03/21 06/30/24 Jillian Lubin MD [address] [place] [address] PCP - General Family Medicine 05/18/25 documented as of this encounter
--- OUTSIDE RECORDS SUMMARY | 2025-09-05 03:54 | EXTERNAL MEDICAL SUMMARY RPT | Encounter Summary ---
Author Organization [facility] Address [address] [address] Care Team Providers Care Senior Physical Therapist Name Role Phone Salvador Chandler Primary Care Provider [phone] Jillian Lubin MD Primary Care Provider [phone] Encounter Details Date Type Department Care Team (Late st Contact Info) Description 02/01/2023 Scanned Document SCANNED ONLY Scanned, Document Social History Tobacco Use Types Packs/Day Years Used Date Smoking Tobacco: Former Cigarettes 0.5 4 Passive Smoke Exposure: Past Smokeless Tobacco: Never [...] on filedocumented in this encounter Care Teams Senior Physical Therapist Relationship Specialty Start Date End Date Salvador Chandler [address] [place], [place] [id number] PCP - General Family Medicine 02/03/21 06/30/24 Jillian Lubin MD [address] [place] [address] PCP - General Family Medicine 05/18/25 documented as of this encounter
--- OUTSIDE RECORDS SUMMARY | 2025-09-05 03:54 | EXTERNAL MEDICAL SUMMARY RPT | Encounter Summary ---
Author Organization [facility] Address [address] [address] Care Team Providers Care Distribution Operations Manager Name Role Phone Salvador Chandler Primary Care Provider [phone] Jillian Lubin MD Primary Care Provider [phone] Encounter Details Date Type Department Care Team (Late st Contact Info) Description 06/12/2022 Scanned Document SCANNED ONLY Scanned, Document Social [...] on filedocumented in this encounter Care Teams Distribution Operations Manager Relationship Specialty Start Date End Date Salvador Chandler [address] [place] [address] PCP - General Family Medicine 02/03/21 06/30/24 Jillian Lubin MD [address] [place] [address] PCP - General Family Medicine 05/18/25 documented as of this encounter
--- NOTE | 2025-09-05 07:56 | PROVIDER PROGRESS NOTE ---
Subjective Subjective Subjective: This morning, patient is awake and conversive. He is on oriented x 3. He mentioned that he felt like he was having some difficulty speaking, and felt like he had slurred speech. He denied any difficulty with forming words, or expressing words. He does not feel like his tongue is swollen, although he knowledges that he may have bit it during the seizure. He has no other weaknesses or deficits noted. He denied any fevers or chills. We talked about the diagnosis of his prostate cancer with likely metastasis. He has a follow-up scheduled with oncology already. He is on board to get further rehabilitation, prior to going home. He understands ever waiting for placement. Current Medications Current Medications Current Medications: Current Medications Generic Name Dose Route Start Last Admin Trade Name Freq PRN Reason Stop Dose Admin Acetaminophen 650 mg 09/02/25 09:34 09/05/25 00:46 Acetaminophen 325 Mg Tablet PO 650 mg Q4HR PRN Administration Pain 1 to 4, or Fever Hydrocodone Bitart/Acetaminophen 1 tab 09/04/25 09:46 Hydrocod/Acetam 5/325 Mg Tablet PO Q4HR PRN Moderate Pain (Level 4-6) Amlodipine Besylate 5 mg 09/03/25 09:00 09/04/25 08:30 Amlodipine 5 Mg Tablet PO 5 mg DAILY WINNIE Administration Aspirin 81 mg 09/03/25 09:00 09/04/25 08:30 Aspirin Ec 81 Mg Tablet PO 81 mg DAILY WINNIE Administration Enoxaparin Sodium 40 mg 09/03/25 09:00 09/04/25 08:30 Enoxaparin 40 Mg/0.4 Ml Syringe SUBQ 40 mg DAILY WINNIE Administration Glycerin 1 supp 09/05/25 07:55 Glycerin Adult Supp DC 09/05/25 07:56 DAILY ONE Levetiracetam 500 mg 09/03/25 09:00 09/04/25 21:09 Levetiracetam 500 Mg/5 Ml Udc PO 500 mg BID WINNIE Administration Multivitamins/Minerals 1 tab 09/03/25 17:04 09/04/25 08:31 Multivitamin W/Minerals Tablet PO 1 tab DAILYWM WINNIE Administration Ondansetron HCl 4 mg 09/02/25 09:34 Ondansetron Odt 4 Mg Tablet TL Q6HR PRN Nausea / Vomiting Ondansetron HCl 4 mg 09/02/25 09:34 Ondansetron 4 Mg/2 Ml Vial IVP Q6HR PRN Nausea / Vomiting Abiraterone 500 Mg 2 each 09/03/25 13:00 09/05/25 06:26 Tablet PO 2 each 0700 WINNIE Administration Polyethylene Glycol 17 gm 09/03/25 12:00 09/04/25 08:30 Polyethylene Glycol 3350 17 Gm Packet PO 17 gm DAILY WINNIE Administration Potassium Chloride 40 meq 09/03/25 08:00 09/04/25 08:31 Potassium Chloride 20 Meq Tablet PO 40 meq DAILYWM WINNIE Administration Prednisone 5 mg 09/04/25 07:00 09/05/25 06:23 Prednisone 5 Mg Tablet PO 5 mg 0700 WINNIE Administration Senna 8.6 - 17.2 mg 09/04/25 09:00 09/04/25 08:30 Senna 8.6 Mg Tablet PO 8.6 mg DAILY WINNIE Administration Sodium Chloride 10 ml 09/02/25 09:34 09/02/25 12:20 Sodium Chloride Flush 0.9% 10 Ml Syringe IVP 10 ml PRN PRN Administration NEEDED PER PROVIDER ORDERS Sodium Chloride 10 ml 09/02/25 17:00 09/05/25 00:40 Sodium Chloride Flush 0.9% 10 Ml Syringe IVP 10 ml 0100,[id number],1700 WINNIE Administration Objective Vital Signs/Intake & Output Reviewed Vital Signs: Yes Vital Signs: Vital Signs x48h Temp Pulse Resp BP BP Pulse Ox 09/05/25 07:25 97.7 F 75 18 166/79 H 96 09/05/25 04:50 97.9 F 74 16 152/79 H 96 09/05/25 00:45 97.9 F 75 16 170/86 H 96 Intake & Output: Intake & Output 09/02/25 09/03/25 09/04/25 09/05/25 23:59 23:59 23:59 23:59 Intake Total 100 / 100 2770 / 2770 2660 / 2660 Output Total 30 650 / 650 Balance 70 / 70 2120 / 2120 2659 / 2659 Weight (kg) 66 kg Objective Comments/Other: Constitutional normal general appearance, no apparent distress, average body habitus and no limitations Diffuse ecchymosis over right side of face with small abrasion on cheek. Ecchymosis noted all over right arm. HENMT head/scalp traumatic Eyes PERRL, EOMs intact bilaterally and conjunctivae normal Neck/C-Spine visual inspection normal, trachea midline and cervical spine nontender Chest inspection of chest normal Respiratory breath sounds equal bilaterally, normal respiratory effort, clear to auscultation bilaterally, no wheezes, no rales and no retractions Cardiovascular normal heart rate noted, regular rhythm noted, no gallop, no rub and no murmur Gastrointestinal abdomen normal to inspection, abdomen soft to palpation, nontender to palpation and normoactive bowel sounds Genitourinary no CVA tenderness and bladder normal to palpation Neurology no movement abnormality noted and no focal motor deficit noted Psychiatry alert and oriented x 3, conversing appropriately Skin no rash, no lesions and ecchymosis noted (Ecchymosis noted on bilateral arms, right worse than left. ) Lab Results 09/05/25 08:31 09/05/25 08:31 Other Labs: Lab Results x24hrs 09/04/25 Range/Units 05:30 WBC 4.3 L (4.8-10.8) x10^3/uL RBC 3.55 L (4.70-6.10) 10^6/uL Hgb 11.9 L (14.0-18.0) g/dL Hct 35.0 L (42.0-52.0) % MCV 98.6 H (80.0-94.0) fL MCH 33.5 H (27.0-31.0) pg MCHC 34.0 (32.0-36.0) g/dL RDW 11.9 L (12.0-15.0) % Plt Count 143 (130-450) 10^3/uL MPV 10.0 (7.4-11.4) fL Sodium 137 (135-145) mmol/L Potassium 3.6 (3.5-4.5) mmol/L Chloride 105 (101-111) mmol/L Carbon Dioxide 26 (21-32) mmol/L Anion Gap 6.0 (6-13) BUN 11 (6-20) mg/dL Creatinine 0.7 (0.6-1.3) mg/dL Estimated GFR (MDRD) 108 (>89) Glucose 107 H (74-104) mg/dL Calcium 8.8 (8.5-10.3) mg/dL Magnesium 2.1 (1.7-2.3) mg/dL Assessment/Plan Problem List (1) Acute metabolic encephalopathy: (2) Post-ictal confusion: (3) Seizure disorder: Impression: The following plan is for the above three assessments: Patient presented after witnessed tonic-clonic seizure at home. Was postictal yesterday, is now back at his baseline mental status. Was prescribed Keppra in 11/24 but has not been taking it for months. Keppra level ordered. Loaded with 1g Keppra. Continue 500mg BID. Should follow up with neurology in the outpatient setting, and get EEG completed as well. already has referral in place. CT head negative. MRI brain completed 11/24 after similar episode showed no bleeds, masses, metastases or acute ischemic changes. MUDS positive for opiates (prescribed for metastatic prostate cancer). Patient has been having some progressive weakness at home, as well as unsteady gait, and dizziness. He had some slight slurred speech overnight, and then again this morning, but it has resolved by the time I seen him. PT reccomends SNF - medically cleared, awaiting placement. (4) Right wrist pain: Impression: Patient with right wrist pain after fall, now that he's a little more awake. XR wrist ordered, no bony abnormality noted. (5) Prostate cancer: Impression: Continue abiraterone and prednisone. Evidence of metastasis to bone. 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 Follows with Dr. Francis, oncology, and they have an appointment with him before [place] to discuss next steps. (6) Hypertension: Impression: Continue amlodipine. Qualifiers: Hypertension type: unspecified Qualified Code(s): I10 - Essential (primary) hypertension (7) Dementia: Impression: Noted some progressive memory loss over the last 4 years. Still largely dependent for IADLs. Dependent on for things like cooking and cleaning. Qualifiers: Dementia behavioral or psychological symptom: unspecified whether behavioral, psychotic, or mood disturbance or anxiety Dementia severity: u nspecified severity Dementia type: unspecified type Qualified Code(s): F03.90 - Unspecified dementia, unspecified severity, without behavioral disturbance, psychotic disturbance, mood disturbance, and anxiety
[2025-09-05 08:38] LABS: HCT - HEMATOCRIT 37.5 % (42.0-52.0); HGB - HEMOGLOBIN 12.7 g/dL (14.0-18.0); MEAN PLATELET VOLUME 9.3 fL (7.4-11.4); PLT - PLATELET COUNT 154.0 10^3/uL (130-450); RED CELL DISTRIBUTION WIDTH 12.1 % (12.0-15.0)
[2025-09-05 09:03] LABS: BUN - BLOOD UREA NITROGEN 11.0 mg/dL (6-20); CARBON DIOXIDE - CO2 26.0 mmol/L (21-32); CREATININE 0.7 mg/dL (0.6-1.3); GFR - MDRD 108.0 (>89)
[2025-09-05] MEDS: GLYCERIN ADULT SUPP PR ONE (11:13)
[2025-09-05] MEDS ORDERED: HYDROcod/ACETAM 5/325 MG TABLET PO PRN (12:21)
--- NOTE | 2025-09-06 10:20 | PROVIDER PROGRESS NOTE ---
Subjective Subjective Subjective: This morning, patient does state that he is having some persistent difficulty with getting out what he is thinking, and finds himself taking a long time to respond. He has no facial droop or any other weaknesses. He is speaking appropriately. His daughters at bedside, and notes that these difficulties sometimes happen late at night or early in the morning when he is tired. We discussed possibility of getting an MRI to evaluate further. His last one was earlier this year. Prostate cancer rarely metastasized to the brain. Current Medications Current Medications Current Medications: Current Medications Generic Name Dose Route Start Last Admin Trade Name Freq PRN Reason Stop Dose Admin Acetaminophen 650 mg 09/02/25 09:34 09/06/25 07:03 Acetaminophen 325 Mg Tablet PO 650 mg Q4HR PRN Administration Pain 1 to 4, or Fever Amlodipine Besylate 5 mg 09/03/25 09:00 09/06/25 09:01 Amlodipine 5 Mg Tablet PO 5 mg DAILY WINNIE Administration Aspirin 81 mg 09/03/25 09:00 09/06/25 09:01 Aspirin Ec 81 Mg Tablet PO 81 mg DAILY WINNIE Administration Enoxaparin Sodium 40 mg 09/03/25 09:00 09/06/25 09:00 Enoxaparin 40 Mg/0.4 Ml Syringe SUBQ 40 mg DAILY WINNIE Administration Levetiracetam 500 mg 09/03/25 09:00 09/06/25 09:00 Levetiracetam 500 Mg/5 Ml Udc PO 500 mg BID WINNIE Administration Multivitamins/Minerals 1 tab 09/03/25 17:04 09/06/25 09:01 Multivitamin W/Minerals Tablet PO 1 tab DAILYWM WINNIE Administration Ondansetron HCl 4 mg 09/02/25 09:34 Ondansetron Odt 4 Mg Tablet TL Q6HR PRN Nausea / Vomiting Ondansetron HCl 4 mg 09/02/25 09:34 Ondansetron 4 Mg/2 Ml Vial IVP Q6HR PRN Nausea / Vomiting Abiraterone 500 Mg 2 each 09/03/25 13:00 09/06/25 06:45 Tablet PO 2 each 0700 WINNIE Administration Polyethylene Glycol 17 gm 09/03/25 12:00 09/06/25 09:00 Polyethylene Glycol 3350 17 Gm Packet PO 17 gm DAILY WINNIE Administration Potassium Chloride 40 meq 09/03/25 08:00 09/06/25 09:01 Potassium Chloride 20 Meq Tablet PO 40 meq DAILYWM WINNIE Administration Prednisone 5 mg 09/04/25 07:00 09/06/25 06:45 Prednisone 5 Mg Tablet PO 5 mg 0700 WINNIE Administration Senna 8.6 - 17.2 mg 09/04/25 09:00 09/06/25 09:01 Senna 8.6 Mg Tablet PO 8.6 mg DAILY WINNIE Administration Sodium Chloride 10 ml 09/02/25 09:34 09/02/25 12:20 Sodium Chloride Flush 0.9% 10 Ml Syringe IVP 10 ml PRN PRN Administration NEEDED PER PROVIDER ORDERS Sodium Chloride 10 ml 09/02/25 17:00 09/06/25 09:02 Sodium Chloride Flush 0.9% 10 Ml Syringe IVP 10 ml 0100,0900,1700 WINNIE Administration Objective Vital Signs/Intake & Output Reviewed Vital Signs: Yes Vital Signs: Vital Signs x48h Temp Pulse Resp BP Pulse Ox 09/06/25 08:00 98.6 F 72 16 162/79 H 96 09/06/25 05:50 97.9 F 80 14 154/86 H 96 Intake & Output: Intake & Output 09/03/25 09/04/25 09/05/25 09/06/25 23:59 23:59 23:59 23:59 Intake Total 2770 / 2770 2660 / 2660 1300 / 1300 1145 / 1145 Output Total 650 / 650 Balance 2120 / 2120 2659 / 2659 1300 / 1300 1145 / 1145 Objective Comments/Other: Constitutional normal general appearance, no apparent distress, average body habitus and no limitations Diffuse ecchymosis over right side of face with small abrasion on cheek. Ecchymosis noted all over right arm. HENMT head/scalp traumatic Eyes PERRL, EOMs intact bilaterally and conjunctivae normal Neck/C-Spine visual inspection normal, trachea midline and cervical spine nontender Chest inspection of chest normal Respiratory breath sounds equal bilaterally, normal respiratory effort, clear to auscultation bilaterally, no wheezes, no rales and no retractions Cardiovascular normal heart rate noted, regular rhythm noted, no gallop, no rub and no murmur Gastrointestinal abdomen normal to inspection, abdomen soft to palpation, nontender to palpation and normoactive bowel sounds Genitourinary no CVA tenderness and bladder normal to palpation Neurology no movement abnormality noted and no focal motor deficit noted Psychiatry alert and oriented x 3, conversing appropriately Skin no rash, no lesions and ecchymosis noted (Ecchymosis noted on bilateral arms, right worse than left. ) Lab Results 09/05/25 08:31 09/05/25 08:31 Other Labs: Lab Results x24hrs 09/04/25 Range/Units 05:30 WBC 4.3 L (4.8-10.8) x10^3/uL RBC 3.55 L (4.70-6.10) 10^6/uL Hgb 11.9 L (14.0-18.0) g/dL Hct 35.0 L (42.0-52.0) % MCV 98.6 H (80.0-94.0) fL MCH 33.5 H (27.0-31.0) pg MCHC 34.0 (32.0-36.0) g/dL RDW 11.9 L (12.0-15.0) % Plt Count 143 (130-450) 10^3/uL MPV 10.0 (7.4-11.4) fL Sodium 137 (135-145) mmol/L Potassium 3.6 (3.5-4.5) mmol/L Chloride 105 (101-111) mmol/L Carbon Dioxide 26 (21-32) mmol/L Anion Gap 6.0 (6-13) BUN 11 (6-20) mg/dL Creatinine 0.7 (0.6-1.3) mg/dL Estimated GFR (MDRD) 108 (>89) Glucose 107 H (74-104) mg/dL Calcium 8.8 (8.5-10.3) mg/dL Magnesium 2.1 (1.7-2.3) mg/dL Assessment/Plan Problem List (1) Acute metabolic encephalopathy: (2) Post-ictal confusion: (3) Seizure disorder: Impression: The following plan is for the above three assessments: Patient presented after witnessed tonic-clonic seizure at home. Was postictal yesterday, is now back at his baseline mental status. Was prescribed Keppra in 11/24 but has not been taking it for months. Keppra level ordered. Loaded with 1g Keppra. Continue 500mg BID. Should follow up with neurology in the outpatient setting, and get EEG completed as well. already has referral in place. CT head negative. MRI brain completed 11/24 after similar episode showed no bleeds, masses, metastases or acute ischemic changes. MUDS positive for opiates (prescribed for metastatic prostate cancer). He had some slight slurred speech overnight, and then again this morning, but it has resolved by the time I seen him. Expresses difficulty with word finding although is speaking appropriately. MRI ordered. PT reccomends SNF - awaiting placement. (4) Right wrist pain: Impression: Patient with right wrist pain after fall, now resolved. XR wrist ordered, no bony abnormality noted. (5) Prostate cancer: Impression: Continue abiraterone and prednisone. Evidence of metastasis to bone. 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 Follows with Dr. Francis, oncology, and they have an appointment with him before [place] to discuss next steps. (6) Hypertension: Impression: Continue amlodipine. Qualifiers: Hypertension type: unspecified Qualified Code(s): I10 - Essential (primary) hypertension (7) Dementia: Impression: Noted some progressive memory loss over the last 4 years. Still largely dependent for IADLs. Dependent on for things like cooking and cleaning. Qualifiers: Dementia behavioral or psychological symptom: unspecified whether behavioral, psychotic, or mood disturbance or anxiety Dementia severity: u nspecified severity Dementia type: unspecified type Qualified Code(s): F03.90 - Unspecified dementia, unspecified severity, without behavioral disturbance, psychotic disturbance, mood disturbance, and anxiety
--- NOTE | 2025-09-06 20:24 | MRI Report ---
PROCEDURE: MRI Brain WO INDICATIONS: aphasia TECHNIQUE: Multisequence MRI of the brain was performed without intravenous contrast. COMPARISON: 11/07/2024 FINDINGS: Image quality: Diagnostic. CSF Spaces: Basal cisterns are patent. No extra-axial fluid collections. Ventricles are normal in size and shape. Brain: No intracranial mass effect or hemorrhage. Choi/white matter interface is normal. Brainstem appears normal. Diffusion-weighted images demonstrate no acute ischemic insult. No chronic ischemic insults. Normal intravascular flow voids are present. Redemonstration of age-related senescent changes and sequela of chronic small vessel ischemic disease. Skull and face: Calvarium has normal marrow signal. Orbits appear normal. Sinuses: Minimal mucosal thickening of the ethmoid and bilateral maxillary sinuses. Other paranasal sinuses and mastoids appear clear. IMPRESSION: MRI brain without acute intracranial abnormalities. No evidence for acute ischemic changes. Redemonstration of age-related senescent changes and sequela of chronic small vessel ischemic disease. Reviewed by: Santo Shook MD on 09/06/2025 8:20 PM [facility] Approved by: Santo Shook MD on 09/06/2025 8:20 PM PST Station ID: [id number]
[2025-09-06] MEDS: DICLOFENAC SODIUM 1% GEL 50 GM TUBE TOP PRN (20:36)
--- NOTE | 2025-09-07 07:38 | PROVIDER PROGRESS NOTE ---
Subjective Subjective Subjective: This morning, patient is doing well. He has no facial droop or any other weaknesses. He is speaking appropriately. He denies fevers, chills, shortness of breath. He is medically cleared, awaiting for discharge. Current Medications Current Medications Current Medications: Current Medications Generic Name Dose Route Start Last Admin Trade Name Freq PRN Reason Stop Dose Admin Acetaminophen 650 mg 09/02/25 09:34 09/07/25 04:25 Acetaminophen 325 Mg Tablet PO 650 mg Q4HR PRN Administration Pain 1 to 4, or Fever Amlodipine Besylate 5 mg 09/03/25 09:00 09/06/25 09:01 Amlodipine 5 Mg Tablet PO 5 mg DAILY WINNIE Administration Aspirin 81 mg 09/03/25 09:00 09/06/25 09:01 Aspirin Ec 81 Mg Tablet PO 81 mg DAILY WINNIE Administration Diclofenac Sodium 2 gm 09/06/25 20:26 09/07/25 04:31 Diclofenac Sodium 1% Gel 50 Gm Tube TOP 2 gm QID PRN Administration Mild Pain (Level 1-3) Enoxaparin Sodium 40 mg 09/03/25 09:00 09/06/25 09:00 Enoxaparin 40 Mg/0.4 Ml Syringe SUBQ 40 mg DAILY WINNIE Administration Levetiracetam 500 mg 09/03/25 09:00 09/06/25 20:07 Levetiracetam 500 Mg/5 Ml Udc PO 500 mg BID WINNIE Administration Lidocaine 1 patch 09/06/25 20:30 09/07/25 00:18 Lidocaine Patch 4% TOP Not Given HS WINNIE Multivitamins/Minerals 1 tab 09/03/25 17:04 09/06/25 09:01 Multivitamin W/Minerals Tablet PO 1 tab DAILYWM WINNIE Administration Ondansetron HCl 4 mg 09/02/25 09:34 Ondansetron Odt 4 Mg Tablet TL Q6HR PRN Nausea / Vomiting Ondansetron HCl 4 mg 09/02/25 09:34 Ondansetron 4 Mg/2 Ml Vial IVP Q6HR PRN Nausea / Vomiting Abiraterone 500 Mg 2 each 09/03/25 13:00 09/07/25 06:06 Tablet PO 2 each 0700 WINNIE Administration Polyethylene Glycol 17 gm 09/03/25 12:00 09/06/25 09:00 Polyethylene Glycol 3350 17 Gm Packet PO 17 gm DAILY WINNIE Administration Potassium Chloride 40 meq 09/03/25 08:00 09/06/25 09:01 Potassium Chloride 20 Meq Tablet PO 40 meq DAILYWM WINNIE Administration Prednisone 5 mg 09/04/25 07:00 09/07/25 06:06 Prednisone 5 Mg Tablet PO 5 mg 0700 WINNIE Administration Senna 8.6 - 17.2 mg 09/04/25 09:00 09/06/25 09:01 Senna 8.6 Mg Tablet PO 8.6 mg DAILY WINNIE Administration Sodium Chloride 10 ml 09/02/25 09:34 09/02/25 12:20 Sodium Chloride Flush 0.9% 10 Ml Syringe IVP 10 ml PRN PRN Administration NEEDED PER PROVIDER ORDERS Sodium Chloride 10 ml 09/02/25 17:00 09/07/25 00:01 Sodium Chloride Flush 0.9% 10 Ml Syringe IVP 10 ml 0100,0900,1700 WINNIE Administration Objective Vital Signs/Intake & Output Reviewed Vital Signs: Yes Vital Signs: Vital Signs x48h Temp Pulse Resp BP BP Pulse Ox 09/07/25 07:31 98.1 F 68 18 148/74 H 94 09/07/25 06:20 154/82 H 09/07/25 04:42 167/76 H 09/07/25 04:22 71 174/78 H 09/07/25 04:21 97.7 F 76 24 186/86 H 96 09/07/25 00:14 97.9 F 84 24 173/89 H 95 Intake & Output: Intake & Output 09/04/25 09/05/25 09/06/25 09/07/25 23:59 23:59 23:59 23:59 Intake Total 2660 / 2660 1300 / 1300 2415 / 2415 Output Total 200 / 200 Balance 2659 / 2659 1300 / 1300 2415 / 2415 -200 / -200 Objective Comments/Other: Constitutional normal general appearance, no apparent distress, average body habitus and no limitations Diffuse ecchymosis over right side of face with small abrasion on cheek. Ecchymosis noted all over right arm. HENMT head/scalp traumatic Eyes PERRL, EOMs intact bilaterally and conjunctivae normal Neck/C-Spine visual inspection normal, trachea midline and cervical spine nontender Chest inspection of chest normal Respiratory breath sounds equal bilaterally, normal respiratory effort, clear to auscultation bilaterally, no wheezes, no rales and no retractions Cardiovascular normal heart rate noted, regular rhythm noted, no gallop, no rub and no murmur Gastrointestinal abdomen normal to inspection, abdomen soft to palpation, nontender to palpation and normoactive bowel sounds Genitourinary no CVA tenderness and bladder normal to palpation Neurology no movement abnormality noted and no focal motor deficit noted Psychiatry alert and oriented x 3, conversing appropriately Skin no rash, no lesions and ecchymosis noted (Ecchymosis noted on bilateral arms, right worse than left. ) Lab Results 09/05/25 08:31 09/05/25 08:31 Other Labs: Lab Results x24hrs 09/04/25 Range/Units 05:30 WBC 4.3 L (4.8-10.8) x10^3/uL RBC 3.55 L (4.70-6.10) 10^6/uL Hgb 11.9 L (14.0-18.0) g/dL Hct 35.0 L (42.0-52.0) % MCV 98.6 H (80.0-94.0) fL MCH 33.5 H (27.0-31.0) pg MCHC 34.0 (32.0-36.0) g/dL RDW 11.9 L (12.0-15.0) % Plt Count 143 (130-450) 10^3/uL MPV 10.0 (7.4-11.4) fL Sodium 137 (135-145) mmol/L Potassium 3.6 (3.5-4.5) mmol/L Chloride 105 (101-111) mmol/L Carbon Dioxide 26 (21-32) mmol/L Anion Gap 6.0 (6-13) BUN 11 (6-20) mg/dL Creatinine 0.7 (0.6-1.3) mg/dL Estimated GFR (MDRD) 108 (>89) Glucose 107 H (74-104) mg/dL Calcium 8.8 (8.5-10.3) mg/dL Magnesium 2.1 (1.7-2.3) mg/dL Assessment/Plan Problem List (1) Acute metabolic encephalopathy: (2) Post-ictal confusion: (3) Seizure disorder: Impression: The following plan is for the above three assessments: Patient presented after witnessed tonic-clonic seizure at home. Was postictal yesterday, is now back at his baseline mental status. Was prescribed Keppra in 11/24 but has not been taking it for months. Keppra level ordered - negatie. Loaded with 1g Keppra. Continue 500mg BID. Should follow up with neurology in the outpatient setting, and get EEG completed as well. already has referral in place. CT head negative. MRI brain completed 11/24 after similar episode showed no bleeds, masses, metastases or acute ischemic changes. MUDS positive for opiates (prescribed for metastatic prostate cancer). He had some slight slurred speech and expressed difficulty with word finding although is speaking appropriately. MRI was repeated at this time and was negative. PT reccomends SNF - awaiting placement. (4) Right wrist pain: Impression: Patient with right wrist pain after fall, now resolved. XR wrist ordered, no bony abnormality noted. Swelling resolved. (5) Prostate cancer: Impression: Continue abiraterone and prednisone. Evidence of metastasis to bone. 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 Follows with Dr. Francis, oncology, and they have an appointment with him before to discuss next steps. (6) Hypertension: Impression: Continue amlodipine. Qualifiers: Hypertension type: unspecified Qualified Code(s): I10 - Essential (primary) hypertension (7) Dementia: Impression: Noted some progressive memory loss over the last 4 years. Still largely dependent for IADLs. Dependent on for things like cooking and cleaning. Qualifiers: Dementia behavioral or psychological symptom: unspecified whether behavioral, psychotic, or mood disturbance or anxiety Dementia severity: u nspecified severity Dementia type: unspecified type Qualified Code(s): F03.90 - Unspecified dementia, unspecified severity, without behavioral disturbance, psychotic disturbance, mood disturbance, and anxiety
[2025-09-07] MEDS ORDERED: GLYCERIN ADULT SUPP PR PRN (09:49)
--- NOTE | 2025-09-07 14:55 | Discharge Summary ---
"Discharge Summary Admit Date: 09/02/25 Discharge Date: 09/10/25 Discharging Provider: Dr. Win Worley Primary Care Provider: Vladimir Burt Code Status: Do Not Attempt Resuscitation Discharge [facility] Name: [facility] DIAGNOSES Discharge Diagnoses with Status of Each Condition: Acute metabolic encephalopathy, postictal confusion, seizure disorderpatient presented after witnessed tonic-clonic seizure at home, was postictal and is now back at his baseline mentation. Continue Keppra 500 mg twice a day. Should follow up with neurology in the outpatient setting, and get EEG completed as well. already has referral in place. [facility] Wrist painresolved. X-ray negative. Prostate cancer Continue abiraterone and prednisone. Evidence of metastasis to bone. 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 Follows with Dr. Francis, oncology, and they have an appointment with him before Brian to discuss next steps. Hypertensioncontinue amlodipine. Dementia Noted some progressive memory loss over the last 4 years. Still largely dependent for IADLs. Dependent on for things like cooking and cleaning. HPI History of Present Illness: Patient is a 79-year-old male with a history of possible seizure disorder, dementia, aortic stenosis s/p TAVR who presents after a witnessed seizure and fall at home. History is taken by the at bedside as patient is still very sleepy and is unable to provide an adequate history. Per the , last night, she heard a noise coming from the patient's bathroom. She then found him on the ground, shaking, both his upper extremities and his lower extremities in a rhythmic fashion. Per the , this has happened about 8-10 times in the past couple years. She states it is always preceded by some mild lip twitching and then he passes out, and has these generalized tonicclonic movements. Previous EMR records indicate that he was started on Keppra in October 2024. Per the , it was not doing anything, so she stopped it on her own. He has not seen a neurologist, nor has he completed an EEG in the outpatient setting. These seizure activities have been going on for the past couple years. When patient is seen, he is responsive to verbal stimuli. He says a few short phrases, and is moving all limbs spontaneously, but is unable to answer yes or no questions or follow commands at this time. This is improved from earlier, when he was just waking up with sternal rub. In the ER, patient was hypertensive to 198/93. His heart rate was 87, his respiratory rate was 20, and he was saturating 98% in room air. Lab work was reviewedhe has a normal white count, hemoglobin is around his baseline of 13.3. BMP shows a mildly low sodium at 132. Drug screen, urinalysis are ordered, pending. Chest x-ray shows questionable mild pulmonary edema, facial bone CT was negative, head CT was negative and cervical spine CT was negative for any acute fractures or subluxations. He was admitted for altered mental status. Past medical history includes dementia, which has been worsening over the last 4 years. He is able to still complete most of his ADLs, but is having trouble with his memory. Other medical history includes aortic stenosis with a aortic valve replacement, hypertension, prostate cancer with possible metastasis to bone. Medications include amlodipine, aspirin. He was prescribed Keppra, but has not been taking it. He has no known drug allergies. Surgical history includes the TAVR. He drinks alcohol rarely, was never a smoker, no recreational drug use. [place]. Lives with his . Ambulates without assistance. Goals of care were discussed with patient's and daughter at bedside. He is DO NOT RESUSCITATE, but they would like full medical management. They will like him to be more awake when they fill the POLST together. CONSULTS | PROCEDURES Consultations: Physical therapy Procedures: MRI brainno acute intracranial abnormalities noted, no evidence of acute ischemic changes. Wrist x-rayno acute bony abnormalities noted. Chest x-rayquestion mild interstitial pulmonary edema, numerous calcified pleural plaques. HOSPITAL COURSE Hospital Course: Patient is a 79-year-old male with a history of prostate cancer with metastasis to the bone, mild dementia, aortic stenosis s/p TAVR who had a witnessed seizure at home. Facial bone CT was negative, head CT was negative and cervical spine CT was negative for any acute fractures or subluxations. He has been diagnosed with seizure disorder, and was prescribed Keppra in the past, but is not been taking it for the past few months. He was postictal initially, and improved over the next 24 to 48 hours. He was started on Keppra, and was advised to continue it, 500 mg twice a day. During his stay, he had some acute on chronic lumbar back pain. 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 He has not received radiation, is not on a bisphosphonate. No saddle anesthesia, bowel or urine incontinence, or decreased sensation etc. Repeat CT scan this admission shows some worsening fractures and metastatic lesions In the T and L-spine. No acute interventions needed, but option for kyphoplasty is possible in the future for pain control. He can also use a back brace for comfort when out of bed. He worked with physical therapy, and plan is for SNF placement. He was seen and evaluated on day of discharge, he has been medically stable for 3 days prior to his discharge. He is discharged in stable condition to [facility]. He will go there under [facility] benefit. Attempts were made to get [facility] into [facility] [place] under his Medicare benefit, but he did not have a qualifying stay. He will need close follow up with his PCP, his oncologist. ALLERGIES Allergies Allergy/AdvReac Type Severity Reaction Status Date / Time No Known Drug Allergies Allergy Verified 12/21/24 10:50 MEDICATIONS Ambulatory Orders Medication Instructions Recorded Confirmed aspirin 81 mg tablet,delayed 81 mg PO DAILY 11/07/24 1 11/03/24 release abiraterone 500 mg tablet 1,000 mg PO DAILY 09/02/25 1 11/03/24 amlodipine 5 mg tablet 5 mg PO DAILY 09/02/2509/02 potassium chloride 10 mEq 10 meq PO BID 09/02/2509/02 tablet,extended release prednisone 5 mg tablet 5 mg PO DAILY 09/02/2509/02 levetiracetam 500 mg tablet 500 mg PO BID #60 tabs 06/24 (Keppra) acetaminophen 500 mg capsule 1,000 mg (2 x 500 mg) PO TID #200 09/10/25 caps hydrocodone 5 mg-acetaminophen 325 1 tab PO Q4HR PRN M oderate Pain 09/10/25 mg tablet (Level 4-6) #30 tabs PHYSICAL EXAM AT DISCHARGE Vital Signs: Vital Signs x48h Temp Pulse Resp BP Pulse Ox 09/10/25 09:30 37 C 76 20 135/67 H 95 LABS 09/08/25 04:19 09/08/25 04:19 DIAGNOSTIC IMAGING Diagnostic Imaging Results: Final report reviewed Diagnostic Imaging Results Comments: CT L-spine 09/07: 1. There has been interval progression of blastic metastatic disease. 2. Patient has severe osteoporosis. She has developed multiple fractures in a short period of time. These are unrelated to the malignant lesions. 3. Findings include interval refracture of L2, which is potentially subacute on chronic, as well as interval T12 compression (chronic), interval L1 compression (likely acute or subacute), and interval L3 compression involving both superior and inferior endplates. Brain MRI 09/06 MRI brain without acute intracranial abnormalities. No evidence for acute ischemic changes. Redemonstration of age-related senescent changes and sequela of chronic small vessel ischemic disease. Wrist x-ray 09/03 No acute bony abnormality Chest x-ray 09/02 Question mild interstitial pulmonary edema. 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 FOLLOW UP Follow Up: Follow up PCP. Follow up oncology. TIME SPENT Time Spent in Discharge (Minutes): 35 Discharge Plan Discharge Patient Disposition: 03 [facility] DC/Xfer Condition: Stable Medically Cleared Date:: 09/10/25 Prescriptions: New levetiracetam [Keppra] 500 mg tablet 500 mg PO BID Qty: 60 2RF hydrocodone-acetaminophen 5-325 mg Tablet 1 tab PO Q4HR PRN (Reason: Moderate Pain (Level 4-6)) Qty: 30 0RF acetaminophen 500 mg capsule 1,000 mg PO TID Qty: 200 0RF Continued aspirin 81 mg tablet,delayed release (DR/EC) 81 mg PO DAILY Patient Comments: TAKE ONE TABLET BY MOUTH ONE TIME DAILY prednisone 5 mg tablet 5 mg PO DAILY Patient Comments: TAKE ONE TABLET BY MOUTH ONE TIME DAILY abiraterone 500 mg tablet 1,000 mg PO DAILY amlodipine 5 mg tablet 5 mg PO DAILY Patient Comments: TAKE ONE TABLET BY MOUTH ONE TIME DAILY potassium chloride 10 mEq tablet extended release 10 meq PO BID Patient Comments: TAKE ONE TABLET BY MOUTH TWICE DAILY WITH FOOD (can irritate stomach) Diet: Regular Interventions: Belongings Inventory Last Done: 09/02/25 09:56 Discharge Last Done: 09/10/25 11:22 Discharge Checklist - Nursing Last Done: 09/10/25 11:22 Discharge Vital Signs (30 Minutes) Last Done: 09/10/25 09:30 Health Concerns: You came to the hospital because you had a seizure. This happened because you were not taking your seizure medication (levetiracetam, also called Keppra) as prescribed. Missing doses of your seizure medication puts you at much higher risk for having another seizure. - Take levetiracetam exactly as your doctor prescribed - Take it at the same times every day - Never stop taking this medication suddenly - stopping suddenly can cause more seizures or a dangerous condition called status epilepticus (seizures that don't stop). - If you need to stop this medication for any reason, your doctor will lower your dose slowly over time Tips to Help You Remember Your Medication - Set alarms on your phone for medication times - Use a pill organizer to track your daily doses - Keep your medication in a place where you'll see it every day - Ask family members to help remind you - Consider using a medication reminder hilary Other Important Steps to Prevent Seizures In addition to taking your medication, these lifestyle changes can help prevent seizures: - Get enough sleep - Go to bed and wake up at the same time every day. Lack of sleep is one of the most common seizure triggers. - Manage stress - Stress and fatigue can trigger seizures. - Avoid alcohol - Alcohol can trigger seizures and interfere with your medication. - Limit caffeine - Energy drinks and too much caffeine may trigger seizures. - Exercise regularly - Physical activity can improve your overall health and quality of life. Side Effects to Watch For Levetiracetam can cause some side effects. Call your doctor if you experience: - Mood changes such as depression, anxiety, anger, or irritability - Thoughts of hurting yourself - Dizziness or drowsiness that makes it hard to do daily activities - Any new rash on your skin When to Get Emergency Help Call 911 or go to the emergency room right away if you: - Have another seizure - Have a seizure that lasts longer than 5 minutes - Have trouble breathing after a seizure - Get injured during a seizure - Develop swelling of your face, lips, or tongue - Have thoughts of hurting yourself or others Until your seizures are well-controlled: - Do not drive (this is a legal requirement) - Avoid swimming alone or taking baths (showers are safer) - Avoid heights and dangerous machinery - Tell family, friends, and coworkers about your seizure disorder so they can help if needed Follow-Up Care - Make an appointment with your neurologist or primary care doctor within one week - Bring all your medications to your appointment - Write down any questions you have before your visit - Your doctor may want to check blood tests to make sure your medication level is correct Questions? If you have any questions about your medications or seizure care, call your doctor's office. If you're having trouble affording your medication, tell your doctor - there may be programs to help. Remember: Taking your medication every day is the single most important thing you can do to prevent another seizure. Print Language: Nepali Stand Alone Forms: SNF Discharge Report called to and time (if no answer, doc. time of each call attempted): [facility] at 1036, report given to TIFFANY MAYA Vitals documented within 30 minutes of discharge?: Yes"
--- NOTE | 2025-09-07 15:39 | CT Report ---
PROCEDURE: CT Lumbar Spine WO INDICATIONS: f/u fracture - worsening pain TECHNIQUE: Noncontrast images acquired from the T12 level to the sacrum. Sagittal and coronal reformats were constructed. For radiation dose reduction, the following was used: automated exposure control, adjustment of mA and/or kV according to patient size. COMPARISON: 12/21/2024 FINDINGS: Image quality: Excellent. Bones: There is normal bony alignment. Again noted are multiple sclerotic metastatic lesions with slight interval progression. The largest of the lesions, involving L4, is noted to have definitely increased in size, well seen when comparing sagittal image 47 of prior series 12 to current image 24 of sagittal series 7. Additionally, there is interval increase in the size of a small posterior inferior L5 lesion. An inferior posterior T11 lesion is definitely increased in size comparing previous image 46 of series 12 to current image 24 of series 7. On the previous study, there was a subtle mild acute compression of 2. this is further fractured, and is now moderate compression, potentially subacute on chronic. There is now a new acute or subacute mild superior endplate compression of L1. There is interval moderate compression of T12, which may be chronic. There is interval superior and inferior compression of L3. There may potentially be a degree of subacutity.. Central spinal caliber is of normal overall caliber. No pars defects. There is mild to moderate canal stenosis at L3-L4, unrelated to malignancy. Soft tissues: No retroperitoneal masses or hematomas. Visualized aorta is normal in caliber. IMPRESSION: 1. There has been interval progression of blastic metastatic disease. 2. Patient has severe osteoporosis. She has developed multiple fractures in a short period of time. These are unrelated to the malignant lesions. 3. Findings include interval refracture of L2, which is potentially subacute on chronic, as well as interval T12 compression (chronic), interval L1 compression (likely acute or subacute), and interval L3 compression involving both superior and inferior endplates. Comment: Consider lumbar MRI to identify the levels in which there is edema present. Consider referral for kyphoplasty if this patient has severe back pain which interferes with basic activities of daily living. Reviewed by: Siva Stevens MD on 09/07/2025 3:36 PM PST Approved by: Siva Stevens MD on 09/07/2025 3:36 PM PST Station ID: [id number]
[2025-09-07] MEDS: HYDROcod/ACETAM 5/325 MG TABLET PO PRN (18:04)
[2025-09-08 04:56] LABS: HCT - HEMATOCRIT 33.9 % (42.0-52.0); HGB - HEMOGLOBIN 11.7 g/dL (14.0-18.0); MEAN PLATELET VOLUME 9.5 fL (7.4-11.4); PLT - PLATELET COUNT 168.0 10^3/uL (130-450); RED CELL DISTRIBUTION WIDTH 11.9 % (12.0-15.0)
[2025-09-08 05:18] LABS: BUN - BLOOD UREA NITROGEN 16.0 mg/dL (6-20); CARBON DIOXIDE - CO2 24.0 mmol/L (21-32); CREATININE 0.7 mg/dL (0.6-1.3); GFR - MDRD 108.0 (>89)
--- NOTE | 2025-09-08 11:07 | PROVIDER PROGRESS NOTE ---
Subjective Prog Note Date Prog Note Date: 09/08/25 Prog Note Time: 11:05 Subjective Subjective: No acute events overnight. Patient remains medically stable for discharge. Being recommended for [facility]. Patient denies any fever/chills, no further seizure activity. He has no focal deficits. He is moving all extremities. He is getting stronger since he has been here, but still requiring significant assistance with mobility and ADLs. Discussed with his and daughter at bedside. He is in an unfortunate position where he does not have a qualifying inpatient stay to discharge under his Medicare benefit. [facility] insurance does cover his postacute care, but they have no contracted facilities on [address]. Family is quite frustrated about this. The patient and his both live alone on [address], and discharge to the [facility] will be disruptive to their lives. Current Medications Current Medications Current Medications: Current Medications Generic Name Dose Route Start Last Admin Trade Name Freq PRN Reason Stop Dose Admin Acetaminophen 650 mg 09/02/25 09:34 09/07/25 15:52 Acetaminophen 325 Mg Tablet PO 650 mg Q4HR PRN Administration Pain 1 to 4, or Fever Hydrocodone Bitart/Acetaminophen 1 tab 09/07/25 17:30 09/08/25 10:18 Hydrocod/Acetam 5/325 Mg Tablet PO 1 tab Q4HR PRN Administration Moderate Pain (Level 4-6) Amlodipine Besylate 5 mg 09/03/25 09:00 09/08/25 08:28 Amlodipine 5 Mg Tablet PO 5 mg DAILY WINNIE Administration Aspirin 81 mg 09/03/25 09:00 09/08/25 08:27 Aspirin Ec 81 Mg Tablet PO 81 mg DAILY WINNIE Administration Diclofenac Sodium 2 gm 09/06/25 20:26 09/08/25 10:10 Diclofenac Sodium 1% Gel 50 Gm Tube TOP 2 gm QID PRN Administration Mild Pain (Level 1-3) Enoxaparin Sodium 40 mg 09/03/25 09:00 09/08/25 08:28 Enoxaparin 40 Mg/0.4 Ml Syringe SUBQ 40 mg DAILY WINNIE Administration Glycerin 1 supp 09/07/25 09:49 Glycerin Adult Supp NV DAILY PRN Constipation Levetiracetam 500 mg 09/07/25 21:00 09/08/25 08:28 Levetiracetam 250 Mg Tablet PO 500 mg BID WINNIE Administration Lidocaine 1 patch 09/06/25 20:30 09/07/25 21:38 Lidocaine Patch 4% TOP 1 patch HS WINNIE Administration Multivitamins/Minerals 1 tab 09/03/25 17:04 09/08/25 08:28 Multivitamin W/Minerals Tablet PO 1 tab DAILYWM WINNIE Administration Ondansetron HCl 4 mg 09/02/25 09:34 Ondansetron Odt 4 Mg Tablet TL Q6HR PRN Nausea / Vomiting Ondansetron HCl 4 mg 09/02/25 09:34 Ondansetron 4 Mg/2 Ml Vial IVP Q6HR PRN Nausea / Vomiting Abiraterone 500 Mg 2 each 09/03/25 13:00 09/08/25 06:20 Tablet PO 2 each 0700 WINNIE Administration Polyethylene Glycol 17 gm 09/03/25 12:00 09/08/25 08:27 Polyethylene Glycol 3350 17 Gm Packet PO 17 gm DAILY WINNIE Administration Potassium Chloride 40 meq 09/03/25 08:00 09/08/25 08:28 Potassium Chloride 20 Meq Tablet PO 40 meq DAILYWM WINNIE Administration Prednisone 5 mg 09/04/25 07:00 09/08/25 06:20 Prednisone 5 Mg Tablet PO 5 mg 0700 WINNIE Administration Senna 8.6 - 17.2 mg 09/04/25 09:00 09/08/25 08:27 Senna 8.6 Mg Tablet PO 8.6 mg DAILY WINNIE Administration Sodium Chloride 10 ml 09/02/25 09:34 09/02/25 12:20 Sodium Chloride Flush 0.9% 10 Ml Syringe IVP 10 ml PRN PRN Administration NEEDED PER PROVIDER ORDERS Sodium Chloride 10 ml 09/02/25 17:00 09/08/25 08:29 Sodium Chloride Flush 0.9% 10 Ml Syringe IVP 10 ml 0100,0900,1700 WINNIE Administration Objective Vital Signs/Intake & Output Reviewed Vital Signs: Yes Vital Signs: Vital Signs x48h Temp Pulse Resp BP Pulse Ox 09/08/25 08:00 36.6 C 75 20 129/69 95 09/08/25 05:21 36.5 C 74 18 129/62 96 Intake & Output: Intake & Output 09/05/25 09/06/25 09/07/25 09/08/25 23:59 23:59 23:59 23:59 Intake Total 1300 / 1300 2415 / 2415 1385 / 1385 360 / 360 Output Total 200 / 200 Balance 1300 / 1300 2415 / 2415 1185 / 1185 360 / 360 Objective Comments/Other: GEN: No acute distress. Appears stated age. Seizure pads in place HEENT: NC/AT, normal appearance of external ears and nose. Hearing baseline. Cardiac: Regular rate and rhythm, no murmurs. Euvolemic on exam. Pulm: Lungs CTA bilaterally, no cough, no wheezes. No adventitial lung sounds. Normal effort on room air. Abdomen: Soft, nontender, nondistended. No rebound or guarding Extremities: Moves all 4 extremities equally. Normal tone. Neuro: Face symmetric, CN II through XII intact grossly. Normal word finding. Oriented x 3. Psych: Mood euthymic. Affect congruent. Lab Results 09/08/25 04:19 09/08/25 04:19 Other Labs: Lab Results x24hrs 09/08/25 Range/Units 04:19 WBC 3.6 L (4.8-10.8) x10^3/uL RBC 3.54 L (4.70-6.10) 10^6/uL Hgb 11.7 L (14.0-18.0) g/dL Hct 33.9 L (42.0-52.0) % MCV 95.8 H (80.0-94.0) fL MCH 33.1 H (27.0-31.0) pg MCHC 34.5 (32.0-36.0) g/dL RDW 11.9 L (12.0-15.0) % Plt Count 168 (130-450) 10^3/uL MPV 9.5 (7.4-11.4) fL Sodium 130 L (135-145) mmol/L Potassium 4.3 (3.5-4.5) mmol/L Chloride 99 L (101-111) mmol/L Carbon Dioxide 24 (21-32) mmol/L Anion Gap 7.0 (6-13) BUN 16 (6-20) mg/dL Creatinine 0.7 (0.6-1.3) mg/dL Estimated GFR (MDRD) 108 (>89) Glucose 93 (74-104) mg/dL Calcium 8.6 (8.5-10.3) mg/dL Magnesium 2.0 (1.7-2.3) mg/dL Assessment/Plan Problem List (1) Acute metabolic encephalopathy: (2) Post-ictal confusion: (3) Seizure disorder: Impression: Resolved. No further seizures. Patient has a history of epilepsy. Has followed with neurology in the community. He was to start on antiepileptic drugs, but declined because of concern for side effects. He has been started on Keppra this admission. Status post loading dose. On 500 mg twice daily. No further seizures since the 1 witnessed at home prior to admission. He had an extended postictal phase, but is back to his baseline mental status as of 09/07. Has a known history starting in October 2024. MRI at that time was negative for intracranial pathology. MRI this admission was also negative. - Continue oral Keppra 500 mg twice daily - Recommend following up with outpatient neurology for further recommendations - PT is evaluated, recommending SNF - Likely needing SNF through the [place], which may necessitate going to the [facility] (4) Right wrist pain: Impression: Resolved. Some posttraumatic pain after falling on arrival. No bony abnormalities on x-ray. No significant swelling. (5) Prostate cancer: Impression: Present on arrival. Known history of metastatic prostate cancer with mets to the bone. Had a repeat lumbar CT this admission with interval refracture of L2, and compression fracture of T12, L1, L3 with mets noted in L4, L5, and T11. Follows with Dr. Francis with oncology. They have an appointment already scheduled outpatient. He is on abiraterone and prednisone - Continue abiraterone and prednisone - Opiates for pain relief - Can use brace when out of bed for pain - Consider follow-up with neurosurgery for kyphoplasty if needed (6) Hypertension: Impression: Blood pressure stable on [employer] amlodipine 5 mg. 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 Mostly forgetful of things. Independent with IADLs. His does help him with cooking and cleaning around the house but he does finances on his own. - PT recommending SNF as above - Delirium precautions I spent a total of 44 minutes in the care of this patient today. This time was spent reviewing labs, vital signs, imaging, interviewing and examining the patient, and discussing plan of care with them and their other care providers. Patient with a exacerbation of chronic problem. prescription drug management as above. [id number]. Qualifiers: Dementia behavioral or psychological symptom: unspecified whether behavioral, psychotic, or mood disturbance or anxiety Dementia severity: u nspecified severity Dementia type: unspecified type Qualified Code(s): F03.90 - Unspecified dementia, unspecified severity, without behavioral disturbance, psychotic disturbance, mood disturbance, and anxiety
--- NOTE | 2025-09-09 15:30 | PROVIDER PROGRESS NOTE ---
Subjective Prog Note Date Prog Note Date: 09/09/25 Prog Note Time: 15:26 Subjective Subjective: Patient continues to do well this morning. He demonstrates good improvement in strength. He is able to sit up in bed he is able to reposition himself in bed. No new seizure activity. No tremor. Denies fever/chills, chest pain, dyspnea, abdominal pain, nausea or vomiting. Multiple discussions today with case management, the family. They still would love [place], but the [place] has no [place] facilities [place]. Discussed the possibility of a swing bed, but this is also not possible given that swing beds that would be are not contracted with the [place]. He has obtained authorization for a bed at [facility]. Plan to discharge there tomorrow. Current Medications Current Medications Current Medications: Current Medications Generic Name Dose Route Start Last Admin Trade Name Freq PRN Reason Stop Dose Admin Acetaminophen 650 mg 09/02/25 09:34 09/07/25 15:52 Acetaminophen 325 Mg Tablet PO 650 mg Q4HR PRN Administration Pain 1 to 4, or Fever Hydrocodone Bitart/Acetaminophen 1 tab 09/07/25 17:30 09/08/25 21:26 Hydrocod/Acetam 5/325 Mg Tablet PO 1 tab Q4HR PRN Administration Moderate Pain (Level 4-6) Amlodipine Besylate 5 mg 09/03/25 09:00 09/09/25 08:17 Amlodipine 5 Mg Tablet PO 5 mg DAILY WINNIE Administration Aspirin 81 mg 09/03/25 09:00 09/09/25 08:17 Aspirin Ec 81 Mg Tablet PO 81 mg DAILY WINNIE Administration Diclofenac Sodium 2 gm 09/06/25 20:26 09/08/25 10:10 Diclofenac Sodium 1% Gel 50 Gm Tube TOP 2 gm QID PRN Administration Mild Pain (Level 1-3) Enoxaparin Sodium 40 mg 09/03/25 09:00 09/09/25 08:16 Enoxaparin 40 Mg/0.4 Ml Syringe SUBQ 40 mg DAILY WINNIE Administration Glycerin 1 supp 09/07/25 09:49 Glycerin Adult Supp [place] DAILY PRN Constipation Levetiracetam 500 mg 09/07/25 21:00 09/09/25 08:17 Levetiracetam 250 Mg Tablet PO 500 mg BID WINNIE Administration Lidocaine 1 patch 09/06/25 20:30 09/08/25 21:20 Lidocaine Patch 4% TOP 1 patch HS WINNIE Administration Multivitamins/Minerals 1 tab 09/03/25 17:04 09/09/25 08:17 Multivitamin W/Minerals Tablet PO 1 tab DAILYWM WINNIE Administration Ondansetron HCl 4 mg 09/02/25 09:34 Ondansetron Odt 4 Mg Tablet TL Q6HR PRN Nausea / Vomiting Ondansetron HCl 4 mg 09/02/25 09:34 Ondansetron 4 Mg/2 Ml Vial IVP Q6HR PRN Nausea / Vomiting Abiraterone 500 Mg 2 each 09/03/25 13:00 09/09/25 06:21 Tablet PO 2 each 0700 WINNIE Administration Polyethylene Glycol 17 gm 09/03/25 12:00 09/09/25 08:16 Polyethylene Glycol 3350 17 Gm Packet PO 17 gm DAILY WINNIE Administration Potassium Chloride 40 meq 09/03/25 08:00 09/09/25 08:16 Potassium Chloride 20 Meq Tablet PO 40 meq DAILYWM WINNIE Administration Prednisone 5 mg 09/04/25 07:00 09/09/25 06:21 Prednisone 5 Mg Tablet PO 5 mg 0700 WINNIE Administration Senna 8.6 - 17.2 mg 09/04/25 09:00 09/09/25 08:16 Senna 8.6 Mg Tablet PO 8.6 mg DAILY WINNIE Administration Sodium Chloride 10 ml 09/02/25 09:34 09/02/25 12:20 Sodium Chloride Flush 0.9% 10 Ml Syringe IVP 10 ml PRN PRN Administration NEEDED PER PROVIDER ORDERS Sodium Chloride 10 ml 09/02/25 17:00 09/09/25 08:17 Sodium Chloride Flush 0.9% 10 Ml Syringe IVP 10 ml 0100,0900,1700 WINNIE Administration Objective Vital Signs/Intake & Output Reviewed Vital Signs: Yes Vital Signs: Vital Signs x48h Temp Pulse Resp BP Pulse Ox 09/08/25 08:00 36.6 C 75 20 129/69 95 09/08/25 05:21 36.5 C 74 18 129/62 96 Intake & Output: Intake & Output 09/06/25 09/07/25 09/08/25 09/09/25 23:59 23:59 23:59 23:59 Intake Total 2415 / 2415 1385 / 1385 1250 / 1250 720 / 720 Output Total 200 / 200 Balance 2415 / 2415 1185 / 1185 1250 / 1250 720 / 720 Objective Comments/Other: GEN: No acute distress. Appears stated age. Seizure pads in place HEENT: NC/AT, normal appearance of external ears and nose. Hearing baseline. Cardiac: Regular rate and rhythm, no murmurs. Euvolemic on exam. Pulm: Lungs CTA bilaterally, no cough, no wheezes. No adventitial lung sounds. Normal effort on room air. Abdomen: Soft, nontender, nondistended. No rebound or guarding Extremities: Moves all 4 extremities equally. Normal tone. Neuro: Face symmetric, CN II through XII intact grossly. Normal word finding. Oriented x 3. Psych: Mood euthymic. Affect congruent. Lab Results 09/08/25 04:19 09/08/25 04:19 Other Labs: Lab Results x24hrs 09/08/25 Range/Units 04:19 WBC 3.6 L (4.8-10.8) x10^3/uL RBC 3.54 L (4.70-6.10) 10^6/uL Hgb 11.7 L (14.0-18.0) g/dL Hct 33.9 L (42.0-52.0) % MCV 95.8 H (80.0-94.0) fL MCH 33.1 H (27.0-31.0) pg MCHC 34.5 (32.0-36.0) g/dL RDW 11.9 L (12.0-15.0) % Plt Count 168 (130-450) 10^3/uL MPV 9.5 (7.4-11.4) fL Sodium 130 L (135-145) mmol/L Potassium 4.3 (3.5-4.5) mmol/L Chloride 99 L (101-111) mmol/L Carbon Dioxide 24 (21-32) mmol/L Anion Gap 7.0 (6-13) BUN 16 (6-20) mg/dL Creatinine 0.7 (0.6-1.3) mg/dL Estimated GFR (MDRD) 108 (>89) Glucose 93 (74-104) mg/dL Calcium 8.6 (8.5-10.3) mg/dL Magnesium 2.0 (1.7-2.3) mg/dL Assessment/Plan Problem List (1) Acute metabolic encephalopathy: (2) Post-ictal confusion: (3) Seizure disorder: Impression: Remains resolved. No further seizure activity. Most of this note is copied from day prior. Patient has a history of epilepsy. Has followed with neurology in the community. He was to start on antiepileptic drugs, but declined because of concern for side effects. He has been started on Keppra this admission. Status post loading dose. On 500 mg twice daily. No further seizures since the 1 witnessed at home prior to admission. He had an extended postictal phase, but is back to his baseline mental status as of 09/07. Has a known history starting in October 2024. MRI at that time was negative for intracranial pathology. MRI this admission was also negative. - Continue oral Keppra 500 mg twice daily - Recommend following up with outpatient neurology for further recommendations - PT evaluated, recommending SNF, Patient has been accepted to [facility], plan for DC 09/10 (4) Right wrist pain: Impression: Resolved. Some posttraumatic pain after falling on arrival. No bony abnormalities on x-ray. No significant swelling. (5) Prostate cancer: Impression: Present on arrival. Known history of metastatic prostate cancer with mets to the bone. Had a repeat lumbar CT this admission with interval refracture of L2, and compression fracture of T12, L1, L3 with mets noted in L4, L5, and T11. Follows with Dr. Francis with oncology. They have an appointment already scheduled outpatient. He is on abiraterone and prednisone - Continue abiraterone and prednisone - Opiates for pain relief - Can use brace when out of bed for pain - Consider follow-up with neurosurgery for kyphoplasty for pain relief (6) Hypertension: Impression: Blood pressure stable on [employer] amlodipine 5 mg. 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 Mostly forgetful of things. Independent with IADLs. His does help him with cooking and cleaning around the house but he does finances on his own. - PT recommending SNF as above - Delirium precautions I spent a total of 37 minutes in the care of this patient today. This time was spent reviewing labs, vital signs, imaging, interviewing and examining the patient, and discussing plan of care with them and their other care providers. Patient with a exacerbation of chronic problem. prescription drug management as above. [id number]. Qualifiers: Dementia type: unspecified type Dementia severity: unspecified severity Dementia behavioral or psychological symptom: unspecified whether behavioral, psychotic, or mood disturbance or anxiety Qualified Code(s): F03.90 - Unspecified dementia, unspecified severity, without behavioral disturbance, psychotic disturbance, mood disturbance, and anxiety
[2025-09-10 07:41] VITALS: O2SAT 95
[2025-09-10 11:26] VITALS: BP 135/67; TEMP 98.6
== END 2025-09-10 09:45 ==
LOC: ED 04:22 → MS2 04:22 → SUATTDRO 09:03 → MS2 09:34
PROVIDERS: ADMIT Internal Medicine; ATTEND Student in an Organized Health Care Education/Training Program